=== PATIENT | female | born 1960 | race Two or more races ===

== ENCOUNTER 2024-05-22 16:02 | Emergency (ER) | payer MEDICARE, MEDICAID, SELFPAY ==
--- NOTE | 2024-05-22 16:57 | XR_ITS ---
Examination: PA chest lateral 2 views Technique: Upright PA lateral chest 2 views Exam date and time: May 22, 2024 1707 hrs. Comparison April 25, 2024 Indications: Onset chest pain today Findings: Normal heart size Lungs are clear. The osseous structures are intact Impression: No active disease
--- NOTE | 2024-05-22 16:57 | EKG_ITS ---
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
--- NOTE | 2024-05-22 16:57 | PD.EDRME ---
Rapid Medical Screening Exam RME Arrival date/time: 05/22/24 16:02 Chief Complaint: General Adult/Misc Complain Time Seen by Provider: 05/22/24 16:52 Vital signs reviewed by provider: Yes RME Narrative: 64-year-old female with reported Hx of L jugular blood clot on Eliquis presents with chest pain with radiation down her left arm.
[2024-05-22 17:07] VITALS: BP 158/89; PULSE 65; RESP 18; TEMP 36.9; O2SAT 99
[2024-05-22 17:44] LABS: Basophils % (Auto) 1 % (0-2.5); Eosinophils # (Auto) 0.2 Thou/mm3 (0.0-0.5); Eosinophils % (Auto) 4 % (0-10); Hematocrit 43.7 % (36.0-46.0); Hemoglobin 14.4 g/dL (12.0-16.0); Immature Granulocytes % (Auto) 0 % (0-0); Immature Granulocytes Auto 0.02 Thou/mm3 (0.00-0.00); Lymphocytes # (Auto) 1.4 Thou/mm3 (1.0-4.8); Lymphocytes % (Auto) 31 % (10-50); Mean Corpuscular Hemoglobin 31.3 pg (25.0-35.0); Mean Corpuscular Volume 95 fL (80-100); Monocytes # (Auto) 0.4 Thou/mm3 (0.0-0.8); Monocytes % (Auto) 8 % (0-12); Neutrophils # (Auto) 2.6 Thou/mm3 (1.8-7.7); Neutrophils % (Auto) 56 % (37-80); Nucleated Red Blood Cell % 0 /100 WBC (0); Platelet Count 276 Thou/mm3 (140-440); White Blood Count 4.6 Thou/mm3 (3.6-11.0)
[2024-05-22 18:01] LABS: INR 0.9 (0.9-1.3); Partial Thromboplastin Time 25.1 Seconds (22.0-36.0); Prothrombin Time 10.3 Seconds (9.0-12.2)
[2024-05-22 18:02] LABS: B-Type Natriuretic Peptide < 20 pg/mL (0-100)
[2024-05-22 18:03] LABS: Alanine Aminotransferase 32 U/L (10-49); Albumin, Serum 4.4 gm/dL (3.4-4.8); Albumin/Globulin Ratio 1.8 (1.2-2.2); Alkaline Phosphatase 84 U/L (46-116); Anion Gap 3 (7-16); Aspartate Amino Transferase 21 U/L (0-34); BUN/Creatinine Ratio 15 Ratio (12-20); Bilirubin,Total 0.4 mg/dL (0.3-1.2); Blood Urea Nitrogen 17 mg/dL (9-23); Calcium 9.8 mg/dL (8.3-10.6); Calcium (Corrected) 9.8 mg/dL (8.5-10.1); Chloride 106 mMol/L (98-107); Creatinine (Component) 1.1 mg/dL (0.6-1.3); Globulin 2.5 gm/dL (2.3-3.5); Glucose 108 mg/dL (74-106); Osmolality,Calculated 276 (275-295); Potassium 4.4 mMol/L (3.4-5.1); Sodium 137 mMol/L (136-145); Total Protein 6.9 gm/dL (5.7-8.2); Troponin I < 0.020 ng/mL (0.0-0.045); eGFR 56 See Note
[2024-05-22 18:05] VITALS: BP 163/90; PULSE 65; RESP 14; TEMP 37.3; O2SAT 97
[2024-05-22 18:09] VITALS: BMI 26.1
--- NOTE | 2024-05-22 18:11 | PC.NURSE ---
Patient came in to the ED for increased L arm pain. Patient has been Dx. with blood clot to L jugular in February 2024. Patient is taking Eliquis, and is to see a vascular surgeon in [place]. Patient rates pain 10/10. POC updated, patient verbalized understanding.
[2024-05-22 18:14] LABS: Collection Type, Urine Clean Catch
--- NOTE | 2024-05-22 18:23 | XR_ITS ---
Examination: Duplex scan of the upper extremity, unilateral left complete Date and time of exam: May 22, 2024 1858 hrs. Indications: Positive for thrombus in the left internal jugular vein, patient is anticoagulated 3 months Technique: Duplex scan of the extremity veins using B-mode/grayscale imaging and Doppler spectral analysis and color flow Attention is directed to internal echogenicity, compression and augmentation involving these veins, color flow assessment, spectral analysis Findings: Positive for thrombus in the left internal jugular vein Subclavian axillary cephalic brachial basilic radial and ulnar veins are open Impression: Positive for thrombus in the left internal jugular vein
--- NOTE | 2024-05-22 18:24 | EDNOTE_ITS ---
<Statement entered by Stephanie Ward MD - 05/23/24 22:06> As co-signing physician, I was present and available for consult prn. I concur with the plan and care as documented by the midlevel provider. ED General RME/HPI General Chief complaint: General Adult/Misc Complain Stated complaint: BLOOD CLOT IN JUGULAR VEIN WITH LEFT ARM PAIN Time Seen by Provider: 05/22/24 16:52 Arrival date/time: 05/22/24 16:02 RME / HPI RME / HPI narrative: 64-year-old female with reported Hx of L jugular blood clot on Eliquis presents with chest pain with radiation down her left arm. Pain is described as dull ache, getting worse for the last 3 days. Patient told me that his been taking her ibuprofen with no relief of pain. Patient denies any chest pain denies any shortness of breath denies any other complaints no medications taken prior travel. Related Data Previous Rx's ?Medication ?Instructions ?Recorded cephalexin 500 mg capsule 500 mg PO BID #10 caps 01/18/23 ibuprofen 800 mg tablet 800 mg PO TID PRN pain #30 tabs 09/12/23 tramadol 50 mg tablet 50 mg PO BID PRN pain #4 tabs 01/18/24 diphenhydramine HCl 50 mg capsule 50 mg PO BID #10 caps 02/15/24 dexamethasone 6 mg tablet 6 mg PO BID #14 tabs 04/10/24 tramadol 50 mg tablet 50 mg PO TID PRN pain #20 tabs 04/10/24 acetaminophen 300 mg-codeine 30 mg 1 tab PO TID PRN pain #20 tabs 05/22/24 tablet Allergies Allergy/AdvReac Type Severity Reaction Status Date / Time metronidazole Allergy Severe RASH Verified 05/22/24 16:03 povidone-iodine Allergy Severe RASH, Verified 05/22/24 16:03 SWELLING Review of Systems Review of Systems Narrative Review of Systems: Review of system reviewed and within normal limits except mentioned in HPI ED Exam Narrative Physical exam: VITAL SIGNS: Reviewed. GENERAL APPEARANCE: Alert and interactive, follows commands, no acute distress, HEAD AND FACE: Non-traumatic. ENT: PERRL, pink conjunctivitis, eyelid no trauma, Mucous membrane moist. NECK: Supple, nontender, no nuchal rigidity. CHEST: No tenderness, no crepitus, no paradoxical movement, no retractions. LUNGS: Clear, well ventilated, symmetric, no rales, no wheezing, no ronchi, no stridor, good breath sounds bilaterally. HEART: Regular rate, regular rhythm, no murmur, no gallops. ABDOMEN: Soft, positive bowel sounds, nondistended, no guarding, nontender, no rebound, no masses, RECTAL: Deferred. GENITAL: Deferred. NEUROLOGICAL: Gross motor function intact sensory function intact, Appropriate for age. MUSCULOSKELETAL: low back nontender, full range of motion. EXTREMITIES: Nontender, full range of motion. SKIN: Color pink, dry, no rash, no lacerations, no abrasions, no contusions. LYMPHATICS: Deferred. Course Quality Measures none Orders Category Date Time Status EKG (ED ONLY) *Do not use* NOW Care 05/22/24 16:57 Completed EKG (ED Only) Stat Exams 05/22/24 16:57 Draft US venous doppler UE LT Stat Exams 05/22/24 18:23 Completed XR chest 2V Stat Exams 05/22/24 16:57 Completed B-Type Natriuretic Peptide Stat Lab 05/22/24 17:25 Completed CBC Stat Lab 05/22/24 17:25 Completed Comprehensive Metabolic Panel Stat Lab 05/22/24 17:25 Completed Drug Screen,Urine Stat Lab 05/22/24 17:45 Completed Magnesium Stat Lab 05/22/24 17:25 Completed Partial Thromboplastin Time Stat Lab 05/22/24 17:25 Completed Prothrombin Time with INR Stat Lab 05/22/24 17:25 Completed Troponin I Stat Lab 05/22/24 17:25 Completed Urinalysis Stat Lab 05/22/24 17:45 Completed ACETAMINOPHEN w/COD 300-30 [Tylenol w/Cod #3] Med 05/22/24 18:23 Discontinued 1 tab PO X1 ONE Vital Signs Vital signs: Vital Signs Temperature 98.5 F 05/22/24 17:07 Pulse Rate 65 05/22/24 17:07 Respiratory Rate 18 05/22/24 17:07 Blood Pressure 158/89 H 05/22/24 17:07 Pulse Oximetry (%) 99 05/22/24 17:07 Oxygen Delivery Method Room Air 05/22/24 17:07 [facility] Patient data External records reviewed:: None Clinical information provided by:: none Social determinants that could affect healthcare access:: none Patient has the following chronic illnesses:: History of DVT left jugular vein How is presenting disease/condition affected by chronic disease/condition?: e xacerbated by Evaluation data The following diagnostics were reviewed and interpreted by me:: lab results, radiology exam(s) and EKG tracing(s) Lab and/or radiology exams considered but not ordered:: None Interpretation Summary: EKG as interpreted by me shows sinus bradycardia, ventricular rate of 57 bpm, no ST segment elevation depression noted. Patient's workup today all came back unremarkable. Ultrasound of the upper extremity is positive for thrombosed left internal jugular vein Medications Medications considered but not ordered:: None Medication administrations:: Medication Administration History Discontinued Medications Acetaminophen/Codeine Phosphate (Acetaminophen W/Cod 300-30 Tablet) 1 tab PO X1 ONE Stop: 05/22/24 18:24 Last Admin: 05/22/24 18:41 Dose: 1 tab Documented By: ER None Consultations Consultation(s) initiated? (list below): No Diagnosis Differential Diagnosis ED Complaint MDM: Arm pain, thrombosed left internal jugular vein, Most likely diagnosis given after review of the tests above:: Arm pain Admission Indicated Admission indicated?: not indicated Explain why admission is indicated or not indicated:: Stable Admission Request Was there a request for admission?: No Disposition Plan Disposition Plan: Discharge Discharge Attestation Discharge Attestation: The patient was given an opportunity to ask questions and understood the discharge instructions. Discharge instructions specifically effects, indications for sooner follow up or return to the emergency department, and the expected course of current diagnosis. Patient condition: Stable Medical Decision Making Differential Diagnosis Differential Diagnosis: Arm pain, thrombosed left internal jugular vein, Lab Data 05/22/24 17:25 05/22/24 17:25 Labs: Lab Results 05/22/24 05/22/24 Range/Units 17:25 17:45 WBC 4.6 (3.6-11.0) Thou/mm3 RBC 4.60 (4.00-5.20) Miln/mm3 Hgb 14.4 (12.0-16.0) g/dL Hct 43.7 (36.0-46.0) % MCV 95 (80-100) fL MCH 31.3 (25.0-35.0) pg MCHC 33.0 (31.0-37.0) g/dl RDW Std Deviation 47.0 H (36.4-46.3) fL Plt Count 276 D (140-440) Thou/mm3 Neut % (Auto) 56 (37-80) % Lymph % (Auto) 31 (10-50) % [place] % (Auto) 8 (0-12) % Eos % (Auto) 4 (0-10) % Baso % (Auto) 1 (0-2.5) % Neut # (Auto) 2.6 (1.8-7.7) Thou/mm3 Lymph # (Auto) 1.4 (1.0-4.8) Thou/mm3 [place] # (Auto) 0.4 (0.0-0.8) Thou/mm3 Eos # (Auto) 0.2 (0.0-0.5) Thou/mm3 Baso # (Auto) 0.0 (0.0-0.2) Thou/mm3 Immature Gran # (Auto) 0.02 H (0.00-0.00) Thou/mm3 Absolute Nucleated RBC 0.00 (0.00-0.00) Thou/mm3 Immature Gran % 0 (0-0) % Nucleated RBC % 0 (0) /100 WBC PT 10.3 (9.0-12.2) Seconds INR 0.9 (0.9-1.3) APTT 25.1 (22.0-36.0) Seconds Sodium 137 (136-145) mMol/L Potassium 4.4 (3.4-5.1) mMol/L Chloride 106 (98-107) mMol/L Carbon Dioxide 28.0 (20.0-31.0) mMol/L Anion Gap 3 L (7-16) BUN 17 (9-23) mg/dL Creatinine 1.1 (0.6-1.3) mg/dL Estim Creat Clear Calc Not Performed. eGFR 56 L (60 - ) See Note BUN/Creatinine Ratio 15 (12-20) Ratio Glucose 108 H (74-106) mg/dL Calculated Osmolality 276 (275-295) Calcium 9.8 (8.3-10.6) mg/dL Corrected Calcium 9.8 (8.5-10.1) mg/dL Magnesium 2.0 (1.6-2.6) mg/dL Total Bilirubin 0.4 (0.3-1.2) mg/dL AST 21 (0-34) U/L ALT 32 (10-49) U/L Alkaline Phosphatase 84 (46-116) U/L Troponin I < 0.020 (0.0-0.045) ng/mL B-Natriuretic Peptide < 20 (0-100) pg/mL Total Protein 6.9 (5.7-8.2) gm/dL Albumin 4.4 (3.4-4.8) gm/dL Globulin 2.5 (2.3-3.5) gm/dL Albumin/Globulin Ratio 1.8 (1.2-2.2) Ur Collection Type Clean Catch Urine Color Lt-Yellow (Lt Yel-Yel) Urine Clarity Turbid A (Clear/Hazy) Urine pH 6.0 (5.0-7.0) Ur Specific [place] 1.021 (1.001-1.035) Urine Protein Negative (Neg - Trace) Urine Glucose (UA) Negative (Negative) Urine Ketones Negative (Negative) Urine Blood 2+ A (Negative) Urine Nitrite Negative (Negative) Urine Bilirubin Negative (Negative) Urine Urobilinogen (Auto) Negative (0.0-1.0) mg/dL Ur Leukocyte Esterase Negative (Negative) Urine RBC 6 H (0-3) /hpf Urine WBC 3 (0-5) /hpf Ur Squamous Epith Cells 2 (0-5) /hpf Urine Bacteria None (None) Urine Opiates Screen Negative (Negative) Urine Fentanyl Screen Negative (Negative) Ur Barbiturates Screen Negative (Negative) U Amphetamin/Meth Scrn Negative (Negative) U Benzodiazepines Scrn Negative (Negative) U Cocaine Metab Screen Negative (Negative) U Marijuana (THC) Screen Negative (Negative) Discharge Plan Plan Patient Disposition: HOME (Self Care) Disposition Comment: Stable Prescriptions/Referrals Prescriptions/Med Rec: New acetaminophen-codeine 300-30 mg tablet 1 tab PO TID PRN (Reason: pain) Qty: 20 0RF No Action cephalexin 500 mg capsule 500 mg PO BID Qty: 10 0RF ibuprofen 800 mg tablet 800 mg PO TID PRN (Reason: pain) Qty: 30 0RF tramadol 50 mg tablet 50 mg PO BID PRN (Reason: pain) Qty: 4 0RF diphenhydramine HCl 50 mg capsule 50 mg PO BID Qty: 10 0RF dexamethasone 6 mg tablet 6 mg PO BID Qty: 14 0RF tramadol 50 mg tablet 50 mg PO TID PRN (Reason: pain) Qty: 20 0RF Referrals: Mansi Newton, APPLICATION SUPPORT CONSULTANT [Primary Care Provider] - In 1 week Problem List Clinical Impression: Arm pain, 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 You are stable for discharged . You are advised to: Follow-up with your PCP in 1 to 2 days Return to ED for worsening of symptoms Increase oral fluids Take medication as prescribed Continue taking your Eliquis Print Language: Ukrainian Stand Alone Forms: Sabrina Award Info., Patient Portal Info Letter PA/PIPE PULLER Supervising Physician ELAN/GABRIELA Supervising Physician: MD Sylvia
[2024-05-22 18:25] LABS: Bilirubin,Urine Negative (Negative); Blood,Urine 2+ (Negative); Clarity,Urine Turbid (Clear/Hazy); Color,Urine Lt-Yellow (Lt Yel-Yel); Glucose, Urine Negative (Negative); Ketones,Urine Negative (Negative); Leukocyte Esterase,Urine Negative (Negative); Nitrite,Urine Negative (Negative); Protein,Urine Negative (Neg - Trace); RBC,Urine 6 /hpf (0-3); Specific Gravity,Urine 1.021 (1.001-1.035); Squamous Epithelial Cell,Urine 2 /hpf (0-5); Urobilinogen,Urine Negative mg/dL (0.0-1.0); WBC,Urine 3 /hpf (0-5)
[2024-05-22 18:28] LABS: Amphetamine/Methamp Scrn,U Negative (Negative); Barbiturate Screen,Urine Negative (Negative); Benzodiazepines Screen,Urine Negative (Negative); Benzoylecgonine Screen, Ur Negative (Negative); Fentanyl Screen,Urine Negative (Negative); Opiate Screen,Urine Negative (Negative); THC Screen,Urine Negative (Negative)
[2024-05-22] MEDS: ACETAMINOPHEN w/COD 300-30 TABLET 1 TAB PO (18:41)
[2024-05-22 20:00] VITALS: BP 166/75; O2SAT 94
[2024-05-22 21:00] VITALS: BP 142/77; PULSE 55; RESP 16; TEMP 37.1; O2SAT 96
[2024-05-22 22:00] VITALS: BP 136/85; PULSE 57; O2SAT 94
[2024-05-22 23:00] VITALS: BP 106/71; PULSE 56; RESP 17; TEMP 36.7; O2SAT 94
[2024-05-23 00:11] VITALS: BP 145/75; PULSE 75; RESP 16; TEMP 37.1; O2SAT 99
== END 2024-05-23 00:12 | disposition home or self-care (01) ==
PROVIDERS: Physician Assistant; Emergency Provider Emergency Medicine; PCP Nurse Practitioner Family
DX: I82.C12 Acute embolism and thrombosis of left internal jugular vein (principal); R00.1 Bradycardia, unspecified; R07.9 Chest pain, unspecified
CPT/HCPCS: 36415; 71046; 80053; 80307; 81001; 83735; 83880; 84484; 85025; 85610; 85730; 93005; 93971; 99284; A9270

== ENCOUNTER 2024-05-24 14:54 | Emergency (ER) | payer MEDICARE, MEDICAID, SELFPAY ==
[2024-05-24 14:55] VITALS: BMI 26.1
[2024-05-24 15:18] VITALS: BP 139/69; PULSE 85; RESP 18; TEMP 36.8; O2SAT 96
--- NOTE | 2024-05-24 15:35 | PD.EDADULT ---
ED General RME/HPI General Chief complaint: General Adult/Misc Complain Stated complaint: LEFT NECK AND ARM PAIN, +HX OF DVT Time Seen by Provider: 05/24/24 15:21 Source: patient Arrival date/time: 05/24/24 14:54 64-year-old female presents to the emergency department with complaints of chronic neck and left arm pain for approximately 4 months. Patient does report she has a chronic DVT into her internal jugular and has had pain that radiates into her left forearm. States her pain has been approximately 4 months no changes in condition. She reports she was evaluated in the emergency department a couple days for similar symptoms. Has not taken any pain medication at home for her symptoms. She is pending a vascular surgeon referral by her PCP. Denies any chest pain, dyspnea no lethargy, no cough hemoptysis. Mode of arrival: ambulatory Related Data Previous Rx's ?Medication ?Instructions ?Recorded cephalexin 500 mg capsule 500 mg PO BID #10 caps 01/18/23 ibuprofen 800 mg tablet 800 mg PO TID PRN pain #30 tabs 09/12/23 tramadol 50 mg tablet 50 mg PO BID PRN pain #4 tabs 01/18/24 diphenhydramine HCl 50 mg capsule 50 mg PO BID #10 caps 02/15/24 dexamethasone 6 mg tablet 6 mg PO BID #14 tabs 04/10/24 tramadol 50 mg tablet 50 mg PO TID PRN pain #20 tabs 04/10/24 acetaminophen 300 mg-codeine 30 mg 1 tab PO TID PRN pain #20 tabs 05/22/24 tablet Allergies Allergy/AdvReac Type Severity Reaction Status Date / Time metronidazole Allergy Severe RASH Verified 05/24/24 14:57 povidone-iodine Allergy Severe RASH, Verified 05/24/24 14:57 SWELLING Review of Systems Review of Systems Systems Reviewed: All systems reviewed, normal except as documented Narrative Review of Systems: Gen: No fever, no chills, no weight loss EYES: No discharge, no visual changes, no pain HEENT: No ear pain, no congestion, no sore throat PULM: No shortness of breath, no cough, no congestion CV: No chest pain, no dyspnea on exertion, no palpitations GI: No nausea, no vomiting, no diarrhea, no pain, no constipation : No frequency, no urgency,? no dysuria Musc/skel: +chronic left arm pain, no back pain Skin: No rash? ED Exam Narrative Physical exam: VITAL SIGNS: Reviewed. GENERAL APPEARANCE: Alert and interactive, follows commands, no acute distress, HEAD AND FACE: Non-traumatic. ENT: PERRL, pink conjunctivitis, eyelid no trauma, Mucous membrane moist. NECK: Supple, nontender, no nuchal rigidity. CHEST: No tenderness, no crepitus, no paradoxical movement, no retractions. LUNGS: Clear, well ventilated, symmetric, no rales, no wheezing, no ronchi, no stridor, good breath sounds bilaterally. HEART: Regular rate, regular rhythm, no murmur, no gallops. ABDOMEN: Soft, positive bowel sounds, nondistended, no guarding, nontender, no rebound, no masses, RECTAL: Deferred. GENITAL: Deferred. NEUROLOGICAL: Gross motor function intact sensory function intact, Appropriate for age. MUSCULOSKELETAL: low back nontender, full range of motion. EXTREMITIES: Nontender, full range of motion. SKIN: Color pink, dry, no rash, no lacerations, no abrasions, no contusions. LYMPHATICS: Deferred. Course Course Course Narrative: 64-year-old female with history of chronic left arm pain from chronic DVT. Is here for pain control Patient is currently on Eliquis twice daily 5 mg for chronic DVT. Has not taken any pain medication for her left arm pain. 1 pain pill was given while in ED. Advised to follow-up with her PCP for further evaluation. Keep cardio/vascular appointments. Clear advised to return to the emergency department with any worsening symptoms or change in condition. Quality Measures none Orders Category Date Time Status HYDROcodone*/APAP 5/325 [[place] 5/325] Med 05/24/24 15:33 Discontinued 1 tab PO X1 ONE Vital Signs Vital signs: Vital Signs Temperature 98.3 F 05/24/24 15:18 Pulse Rate 85 05/24/24 15:18 Respiratory Rate 18 05/24/24 15:18 Blood Pressure 139/69 H 05/24/24 15:18 Pulse Oximetry (%) 96 05/24/24 15:18 Oxygen Delivery Method Room Air 05/24/24 15:18 [facility] Patient data External records reviewed:: [facility] previous records Clinical information provided by:: patient Social determinants that could affect healthcare access:: other (specify) (Housing, substance abuse,) Patient has the following chronic illnesses:: Chronic DVT, methamphetamine use, How is presenting disease/condition affected by chronic disease/condition?: exacerbated by Evaluation data The following diagnostics were reviewed and interpreted by me:: other (specify) Lab and/or radiology exams considered but not ordered:: Yes considered Interpretation Summary: Not applicable Medications Medications considered but not ordered:: Pain medication Medication administrations:: Medication Administration History Discontinued Medications Hydrocodone Bitart/Acetaminophen (Hydrocodone/Apap 5/325 Tablet) 1 tab PO X1 ONE Stop: 05/24/24 15:34 Last Admin: 05/24/24 15:48 Dose: 1 tab Documented By: All medications administered and effective Consultations Consultation(s) initiated? (list below): No Diagnosis Differential Diagnosis ED Complaint MDM: Chronic arm pain, Most likely diagnosis given after review of the tests above:: Chronic arm pain, chronic pain Admission Indicated Admission indicated?: not indicated Explain why admission is indicated or not indicated:: Not indicate Admission Request Was there a request for admission?: No Disposition Plan Disposition Plan: Discharge Discharge Attestation Discharge Attestation: The patient and all family members were given an opportunity to ask questions and understood the discharge instructions. Discharge instructions specifically effects, indications for sooner follow up or return to the emergency department, and the expected course of current diagnosis. Patient condition: Stable Medical Decision Making Differential Diagnosis Differential Diagnosis: Chronic arm pain, Discharge Plan Plan Patient Disposition: HOME (Self Care) Patient condition on transfer: Stable Prescriptions/Referrals Prescriptions/Med Rec: No Action cephalexin 500 mg capsule 500 mg PO BID Qty: 10 0RF ibuprofen 800 mg tablet 800 mg PO TID PRN (Reason: pain) Qty: 30 0RF tramadol 50 mg tablet 50 mg PO BID PRN (Reason: pain) Qty: 4 0RF acetaminophen-codeine 300-30 mg tablet 1 tab PO TID PRN (Reason: pain) Qty: 20 0RF diphenhydramine HCl 50 mg capsule 50 mg PO BID Qty: 10 0RF dexamethasone 6 mg tablet 6 mg PO BID Qty: 14 0RF tramadol 50 mg tablet 50 mg PO TID PRN (Reason: pain) Qty: 20 0RF Problem List Clinical Impression: 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 Continue to alternate between Tylenol ibuprofen for your pain. Follow-up with your primary doctor keep your appointment with your vascular surgeon. Return to the emergency department if you develop any shortness of breath chest pain or any worsening symptoms as discussed. Print Language: [place] Stand Alone Forms: Sabrina Award Info., Patient Portal Info Letter Attestation Attestation The patient was seen by the midlevel practitioner. I, the co-signing physician, was present during the entire ER visit. While I did not physically examine the patient, I was available for consultation as needed.
[2024-05-24] MEDS: HYDROcodone/APAP 5/325 TABLET 1 TAB PO (15:48)
== END 2024-05-24 16:39 | disposition home or self-care (01) ==
PROVIDERS: Emergency Provider Emergency Medicine; PCP Nurse Practitioner Family
DX: M79.632 Pain in left forearm (principal); G89.29 Other chronic pain; I82.C22 Chronic embolism and thrombosis of left internal jugular vein; Z79.01 Long term (current) use of anticoagulants
CPT/HCPCS: 99283; A9270

== ENCOUNTER 2024-07-07 14:46 | Emergency (ER) | payer MEDICARE, MEDICAID, SELFPAY ==
[2024-07-07 14:47] VITALS: BMI 26.1
--- NOTE | 2024-07-07 14:51 | EKG_ITS ---
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
[2024-07-07 15:10] VITALS: BP 144/84; PULSE 60; RESP 18; TEMP 36.6
--- NOTE | 2024-07-07 15:37 | XR_ITS ---
Examination: PA lateral chest 2 views TECHNIQUE: Upright PA lateral chest 2 views Exam date and time: July 07, 2024 0.49 hours Comparison May 22, 2024 INDICATIONS: Onset chest pain today. FINDINGS: Normal heart size No pneumonia or pulmonary edema The osseous structures are intact with mild thoracic dextroscoliosis IMPRESSION: No pneumonia or pulmonary edema
[2024-07-07] MEDS: HYDROcodone/APAP 5/325 TABLET 1 TAB PO (15:46)
--- NOTE | 2024-07-07 15:48 | PD.EDNECK ---
ED Neck Injury Pain RME/HPI General Chief Complaint: Neck Pain/Injury Stated Complaint: LEFT NECK PAIN AND LEFT ARM/HAND WEEKNESS Time Seen by Provider: 07/07/24 15:31 Arrival date/time: 07/07/24 14:46 RME / HPI RME / HPI Narrative: 64 yo female presents with left sided neck pain. Pain has been ongoing for months. 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 Complains of left arm pain also. No chest pain or shortness of breath. No vomiting. No abdominal pain. No fevers. No headache. No syncope or presyncope. Related Data Previous Rx's ?Medication ?Instructions ?Recorded cephalexin 500 mg capsule 500 mg PO BID #10 caps 01/18/23 ibuprofen 800 mg tablet 800 mg PO TID PRN pain #30 tabs 09/12/23 tramadol 50 mg tablet 50 mg PO BID PRN pain #4 tabs 01/18/24 diphenhydramine HCl 50 mg capsule 50 mg PO BID #10 caps 02/15/24 dexamethasone 6 mg tablet 6 mg PO BID #14 tabs 04/10/24 tramadol 50 mg tablet 50 mg PO TID PRN pain #20 tabs 04/10/24 acetaminophen 300 mg-codeine 30 mg 1 tab PO TID PRN pain #20 tabs 05/22/24 tablet Allergies Allergy/AdvReac Type Severity Reaction Status Date / Time metronidazole Allergy Severe RASH Verified 07/07/24 14:50 povidone-iodine Allergy Severe RASH, Verified 07/07/24 14:50 SWELLING Review of Systems Review of Systems Narrative Review of Systems: Review of systems negative except as outlined in the HPI. ED Exam Narrative Physical exam: Constitutional: no acute distress, age appropriate, non-toxic Eyes: PERRL, conjunctivae w/o pallor, EOMI HENT: normocephalic, atraumatic. Oral mucosa moist Respiratory Effort: no stridor, effort normal, no retractions Breath sounds: Clear bilaterally; No rales, No rhonchi, No wheezing Cardiovascular: regular rhythm, S1 and S2 normal, no murmur. Radial pulses 2+ bilaterally. Cap refill less than 2 seconds. Abdominal: soft; non-distended, non-tender Musculoskeletal: no deformities, no swelling, no LE edema. Skin: warm, dry; No rash Neurology: alert, oriented X 4. Normal gait. Cranial nerves II through XII intact. Equal relief master bilaterally. Sensation intact bilateral upper extremities. 5 out of 5 strength bilateral upper extremities, 5 out of 5 muscle strength bilateral upper extremities. Psychology: cooperative, normal mood Course Orders Category Date Time Status EKG (ED ONLY) *Do not use* NOW Care 07/07/24 14:51 Completed EKG (ED Only) Stat Exams 07/07/24 14:51 Ordered XR chest 2V Stat Exams 07/07/24 15:37 Ordered CBC Stat Lab 07/07/24 15:37 Ordered CMP [Comprehensive Metabolic Panel] Stat Lab 07/07/24 15:37 Ordered Troponin I Stat Lab 07/07/24 15:37 Ordered HYDROcodone*/APAP 5/325 [Bob White 5/325] Med 07/07/24 15:37 Discontinued 1 tab PO X1 ONE Vital Signs Vital signs: Vital Signs Temperature 97.9 F 07/07/24 15:10 Pulse Rate 60 07/07/24 15:10 Respiratory Rate 18 07/07/24 15:10 Blood Pressure 144/84 H 07/07/24 15:10 Oxygen Delivery Method Room Air 07/07/24 15:10 Neck Pain MDM Narrative MDM Narrative:: Patient presents with chronic neck pain. She has history of thrombosis of the left jugular vein. There is no unilateral arm swelling to suggest upper extremity DVT. No chest pain or shortness of breath to suggest pulmonary embolism. No tachycardia, normal SpO2 on room air. Highly doubt pulmonary embolism. Likely exacerbation of chronic pain. Patient data External records reviewed:: [facility] previous records Clinical information provided by:: patient Social determinants that could affect healthcare access:: none Patient has the following chronic illnesses:: Chronic pain How is presenting disease/condition affected by chronic disease/condition?: exacerbated by Evaluation data The following diagnostics were reviewed and interpreted by me:: lab results and radiology exam(s) Lab and/or radiology exams considered but not ordered:: Considered CT angio of the chest, but highly doubt PE. See MDM section. Medications / Prescriptions Medications or Prescriptions considered but not ordered:: N/A Medication administrations:: Medication Administration History Discontinued Medications Hydrocodone Bitart/Acetaminophen (Hydrocodone/Apap 5/325 Tablet) 1 tab PO X1 ONE Stop: 07/07/24 15:38 Last Admin: 07/07/24 15:46 Dose: 1 tab Documented By: See above Consultations Consultation(s) initiated? (list below): No Diagnosis Neck Differential Diagnosis: other (ACS, upper extremity DVT, chronic pain, PE) Most likely diagnosis given after review of the tests above:: Chronic pain Admission Indicated Admission indicated?: not indicated Admission Request Was there a request for admission?: No Discharge Plan Prescriptions/Referrals Prescriptions/Med Rec: No Action cephalexin 500 mg capsule 500 mg PO BID Qty: 10 0RF ibuprofen 800 mg tablet 800 mg PO TID PRN (Reason: pain) Qty: 30 0RF tramadol 50 mg tablet 50 mg PO BID PRN (Reason: pain) Qty: 4 0RF acetaminophen-codeine 300-30 mg tablet 1 tab PO TID PRN (Reason: pain) Qty: 20 0RF diphenhydramine HCl 50 mg capsule 50 mg PO BID Qty: 10 0RF dexamethasone 6 mg tablet 6 mg PO BID Qty: 14 0RF tramadol 50 mg tablet 50 mg PO TID PRN (Reason: pain) Qty: 20 0RF Patient/Caregiver Discharge Instructions Print Language: Cymro
--- NOTE | 2024-07-07 16:25 | PD.EDRME ---
Rapid Medical Screening Exam [facility] Arrival date/time: 07/07/24 14:46 Chief Complaint: Neck Pain/Injury Time Seen by Provider: 07/07/24 15:31 Vital signs: Vital Signs Temperature 97.9 F 07/07/24 15:10 Pulse Rate 60 07/07/24 15:10 Respiratory Rate 18 07/07/24 15:10 Blood Pressure 144/84 H 07/07/24 15:10 Oxygen Delivery Method Room Air 07/07/24 15:10 [facility] Narrative: 64 yo female presents with left sided neck pain. Pain has been ongoing for months. 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 Complains of left arm pain also. No chest pain or shortness of breath. No vomiting. No abdominal pain. No fevers. No headache. No syncope or presyncope.
[2024-07-07 16:27] LABS: Basophils % (Auto) 1 % (0-2.5); Eosinophils # (Auto) 0.2 Thou/mm3 (0.0-0.5); Eosinophils % (Auto) 3 % (0-10); Hematocrit 45.5 % (36.0-46.0); Hemoglobin 14.8 g/dL (12.0-16.0); Immature Granulocytes % (Auto) 0 % (0-0); Immature Granulocytes Auto 0.01 Thou/mm3 (0.00-0.00); Lymphocytes # (Auto) 1.4 Thou/mm3 (1.0-4.8); Lymphocytes % (Auto) 25 % (10-50); Mean Corpuscular HGB Conc 32.5 g/dl (31.0-37.0); Mean Corpuscular Hemoglobin 30.7 pg (25.0-35.0); Mean Corpuscular Volume 94 fL (80-100); Monocytes # (Auto) 0.3 Thou/mm3 (0.0-0.8); Monocytes % (Auto) 5 % (0-12); Neutrophils # (Auto) 3.6 Thou/mm3 (1.8-7.7); Neutrophils % (Auto) 66 % (37-80); Nucleated Red Blood Cell % 0 /100 WBC (0); Platelet Count 297 Thou/mm3 (140-440); RDW Standard Deviation 43.2 fL (36.4-46.3); Red Blood Count 4.82 Miln/mm3 (4.00-5.20); White Blood Count 5.5 Thou/mm3 (3.6-11.0)
[2024-07-07 16:49] LABS: Alanine Aminotransferase 10 U/L (10-49); Albumin, Serum 4.4 gm/dL (3.4-4.8); Albumin/Globulin Ratio 1.6 (1.2-2.2); Alkaline Phosphatase 74 U/L (46-116); Anion Gap 4 (7-16); Aspartate Amino Transferase 14 U/L (0-34); BUN/Creatinine Ratio 11 Ratio (12-20); Bilirubin,Total 0.5 mg/dL (0.3-1.2); Blood Urea Nitrogen 13 mg/dL (9-23); Calcium 9.4 mg/dL (8.3-10.6); Calcium (Corrected) 9.4 mg/dL (8.5-10.1); Carbon Dioxide 30.8 mMol/L (20.0-31.0); Chloride 105 mMol/L (98-107); Creatinine (Component) 1.2 mg/dL (0.6-1.3); Estimated Creatinine Clearance 44.6 mL/min (>60); Globulin 2.7 gm/dL (2.3-3.5); Glucose 112 mg/dL (74-106); Osmolality,Calculated 280 (275-295); Potassium 4.2 mMol/L (3.4-5.1); Sodium 140 mMol/L (136-145); Total Protein 7.1 gm/dL (5.7-8.2); Troponin I < 0.020 ng/mL (0.0-0.045); eGFR 50 See Note
--- NOTE | 2024-07-07 17:48 | EDNOTE_ITS ---
<Statement entered by Stephanie Ward MD - 07/09/24 15:28> As co-signing physician, I was present and available for consult prn. I concur with the plan and care as documented by the midlevel provider. ED General RME/HPI General Chief complaint: Neck Pain/Injury Stated complaint: LEFT NECK PAIN AND LEFT ARM/HAND WEEKNESS Time Seen by Provider: 07/07/24 15:31 Arrival date/time: 07/07/24 14:46 CC: Left arm pain HPI ongoing for the past months. The patient also states that she has a chronic thrombus in her jugular vein that she has been on Eliquis for for the past 4 months. She has a follow-up with her PCP in another week and a half. Patient denies chest pain shortness of breath or difficulty breathing. RME / HPI RME / HPI narrative: 64 yo female presents with left sided neck pain. Pain has been ongoing for months. 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 Complains of left arm pain also. No chest pain or shortness of breath. No vomiting. No abdominal pain. No fevers. No headache. No syncope or presyncope. Related Data Previous Rx's ?Medication ?Instructions ?Recorded cephalexin 500 mg capsule 500 mg PO BID #10 caps 01/18/23 ibuprofen 800 mg tablet 800 mg PO TID PRN pain #30 tabs 09/12/23 tramadol 50 mg tablet 50 mg PO BID PRN pain #4 tabs 01/18/24 diphenhydramine HCl 50 mg capsule 50 mg PO BID #10 caps 02/15/24 dexamethasone 6 mg tablet 6 mg PO BID #14 tabs 04/10/24 tramadol 50 mg tablet 50 mg PO TID PRN pain #20 tabs 04/10/24 acetaminophen 300 mg-codeine 30 mg 1 tab PO TID PRN pain #20 tabs 05/22/24 tablet Allergies Allergy/AdvReac Type Severity Reaction Status Date / Time metronidazole Allergy Severe RASH Verified 07/07/24 14:50 povidone-iodine Allergy Severe RASH, Verified 07/07/24 14:50 SWELLING Review of Systems Review of Systems Narrative Review of Systems: GEN: No fever, no chills, no weight loss EYES: No discharge, no visual changes, no pain HEENT: No ear pain, no congestion, no sore throat PULM: No shortness of breath, no cough, no congestion CV: No chest pain, no dyspnea on exertion, no palpitations GI: No nausea, no vomiting, no diarrhea, no pain, no constipation : No frequency, no urgency, no dysuria MUSC/SKEL: No joint pain, no back pain SKIN: No rash PSYCH: No hallucinations, no depression HEME/LYMPH: No easy bleeding or bruising tendencies NEURO: No weakness, no headache Past Medical History Past Medical History NEUROLOGIC: Negative Neurological Disorders CARDIAC: Positive Deep Vein Thrombosis; Negative Cardiac Disorders, Congestive Heart Failure or Hypertension RESPIRATORY: Positive Chronic Obstructive Pulmonary Disease (COPD) and Asthma GASTROINTESTINAL: Positive Gastrointestinal Disorders and Gall Bladder Disease GENITOURINARY: Negative Renal Disease MUSCULOSKELETAL: Positive Musculoskeletal Disorders and Arthritis ENDOCRINE: Negative Diabetes Mellitus Type 1 or Diabetes Mellitus Type 2 HEMATOLOGIC: Negative Sickle Cell Disease OTHER HISTORY: Negative Cancer Surgical History SURGICAL: Negative Cardiac Surgery Social History SMOKING STATUS: Current every day smoker 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) ED Exam Narrative Physical exam: [General: Not in any acute distress Head normocephalic HEENT: Within acceptable limits Neck is supple nontender no significant JVD Chest equal chest rise nontender to palpation Respiratory: Clear to auscultation no wheezes crackles or rubs CV: Rate rhythm is regular no murmurs rubs or clicks Abdomen is distended secondary to body habitus soft nontender no masses positive bowel sounds all 4 quadrants Back: No CVA tenderness no spinous process tenderness from cervical spine thoracic and lumbar spine Skin: Intact no petechiae rash induration ulceration or crepitus Extremities: Moving all extremity against resistance cap refill less than 2 seconds neurosensory intact Neuro: Awake alert oriented x3 Glascow coma 15 no focal deficits] Course Quality Measures none Orders Category Date Time Status EKG (ED ONLY) *Do not use* NOW Care 07/07/24 14:51 Completed EKG (ED Only) Stat Exams 07/07/24 14:51 Ordered XR chest 2V Stat Exams 07/07/24 15:37 Completed CBC Stat Lab 07/07/24 15:56 Completed CMP [Comprehensive Metabolic Panel] Stat Lab 07/07/24 15:56 Completed Troponin I Stat Lab 07/07/24 15:56 Completed HYDROcodone*/APAP 5/325 [[place] 5/325] Med 07/07/24 15:37 Discontinued 1 tab PO X1 ONE Vital Signs Vital signs: Vital Signs Temperature 97.9 F 07/07/24 15:10 Pulse Rate 60 07/07/24 15:10 Respiratory Rate 18 07/07/24 15:10 Blood Pressure 144/84 H 07/07/24 15:10 Oxygen Delivery Method Room Air 07/07/24 15:10 [facility] Patient data External records reviewed:: [facility] previous records Clinical information provided by:: patient Social determinants that could affect healthcare access:: none Patient has the following chronic illnesses:: Eliquis for jugular DVT How is presenting disease/condition affected by chronic disease/condition?: u neffected by Evaluation data The following diagnostics were reviewed and interpreted by me:: lab results, radiology exam(s) and EKG tracing(s) Lab and/or radiology exams considered but not ordered:: EKG performed at 1513 shows a ventricular rate of 5 2 OR interval 164 QRS of 8 0 QTc of 455 this is sinus bradycardia, when compared to old EKGs she has been persistently bradycardic for the last 2 years. Troponin is negative CBC shows no acute leukocytosis anemia thrombocytopenia CMP shows no acute electrolyte imbalances renal impairment transaminitis or T. bili elevation. Interpretation Summary: Left arm pain Medications Medications considered but not ordered:: None Medication administrations:: Medication Administration History Discontinued Medications Hydrocodone Bitart/Acetaminophen (Hydrocodone/Apap 5/325 Tablet) 1 tab PO X1 ONE Stop: 07/07/24 15:38 Last Admin: 07/07/24 15:46 Dose: 1 tab Documented By: None Consultations Consultation(s) initiated? (list below): No Diagnosis Differential Diagnosis ED Complaint MDM: ACS DC pneumonia Most likely diagnosis given after review of the tests above:: Left arm pain Admission Indicated Admission indicated?: not indicated Explain why admission is indicated or not indicated:: Stable for discharge Admission Request Was there a request for admission?: No Disposition Plan Disposition Plan: Discharge Discharge Attestation Discharge Attestation: The patient and all family members were given an opportunity to ask questions and understood the discharge instructions. Discharge instructions specifically effects, indications for sooner follow up or return to the emergency department, and the expected course of current diagnosis. Patient condition: Stable Medical Decision Making Differential Diagnosis Differential Diagnosis: ACS DC pneumonia Lab Data 07/07/24 15:56 01/14/25 15:56 Labs: Lab Results 07/07/24 Range/Units 15:56 WBC 5.5 (3.6-11.0) Thou/mm3 RBC 4.82 (4.00-5.20) Miln/mm3 Hgb 14.8 (12.0-16.0) g/dL Hct 45.5 (36.0-46.0) % MCV 94 (80-100) fL MCH 30.7 (25.0-35.0) pg MCHC 32.5 (31.0-37.0) g/dl RDW Std Deviation 43.2 (36.4-46.3) fL Plt Count 297 (140-440) Thou/mm3 Neut % (Auto) 66 (37-80) % Lymph % (Auto) 25 (10-50) % Stanton % (Auto) 5 (0-12) % Eos % (Auto) 3 (0-10) % Baso % (Auto) 1 (0-2.5) % Neut # (Auto) 3.6 (1.8-7.7) Thou/mm3 Lymph # (Auto) 1.4 (1.0-4.8) Thou/mm3 Stanton # (Auto) 0.3 (0.0-0.8) Thou/mm3 Eos # (Auto) 0.2 (0.0-0.5) Thou/mm3 Baso # (Auto) 0.0 (0.0-0.2) Thou/mm3 Immature Gran # (Auto) 0.01 H (0.00-0.00) Thou/mm3 Absolute Nucleated RBC 0.00 (0.00-0.00) Thou/mm3 Immature Gran % 0 (0-0) % Nucleated RBC % 0 (0) /100 WBC Sodium 140 (136-145) mMol/L Potassium 4.2 (3.4-5.1) mMol/L Chloride 105 (98-107) mMol/L Carbon Dioxide 30.8 (20.0-31.0) mMol/L Anion Gap 4 L (7-16) BUN 13 (9-23) mg/dL Creatinine 1.2 (0.6-1.3) mg/dL Estim Creat Clear Calc 44.6 L (>60) mL/min eGFR 50 L (60 - ) See Note BUN/Creatinine Ratio 11 L (12-20) Ratio Glucose 112 H (74-106) mg/dL Calculated Osmolality 280 (275-295) Calcium 9.4 (8.3-10.6) mg/dL Corrected Calcium 9.4 (8.5-10.1) mg/dL Total Bilirubin 0.5 (0.3-1.2) mg/dL AST 14 (0-34) U/L ALT 10 (10-49) U/L Alkaline Phosphatase 74 (46-116) U/L Troponin I < 0.020 (0.0-0.045) ng/mL Total Protein 7.1 (5.7-8.2) gm/dL Albumin 4.4 (3.4-4.8) gm/dL Globulin 2.7 (2.3-3.5) gm/dL Albumin/Globulin Ratio 1.6 (1.2-2.2) Discharge Plan Plan Patient Disposition: HOME (Self Care) Patient condition on transfer: Stable Prescriptions/Referrals Prescriptions/Med Rec: No Action cephalexin 500 mg capsule 500 mg PO BID Qty: 10 0RF ibuprofen 800 mg tablet 800 mg PO TID PRN (Reason: pain) Qty: 30 0RF tramadol 50 mg tablet 50 mg PO BID PRN (Reason: pain) Qty: 4 0RF acetaminophen-codeine 300-30 mg tablet 1 tab PO TID PRN (Reason: pain) Qty: 20 0RF diphenhydramine HCl 50 mg capsule 50 mg PO BID Qty: 10 0RF dexamethasone 6 mg tablet 6 mg PO BID Qty: 14 0RF tramadol 50 mg tablet 50 mg PO TID PRN (Reason: pain) Qty: 20 0RF Problem List Clinical Impression: Arm pain Patient/Caregiver Discharge Instructions Education Materials: Back Exercises: Arm Reach Print Language: Croatian Stand Alone Forms: Sabrina Award Info., Patient Portal Info Letter, Work/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
[2024-07-07 17:53] VITALS: BP 136/83; PULSE 55; RESP 19; TEMP 36.6; O2SAT 98
== END 2024-07-07 17:46 | disposition home or self-care (01) ==
LOC: SERX 18:24
PROVIDERS: Physician Assistant; Emergency Provider Emergency Medicine
DX: M79.602 Pain in left arm (principal); M54.2 Cervicalgia; Z86.718 Personal history of other venous thrombosis and embolism
CPT/HCPCS: 36415; 71046; 80053; 84484; 85025; 93005; 99283; A9270

== ENCOUNTER 2024-07-09 13:05 | Emergency (ER) | payer MEDICARE, MEDICAID, SELFPAY ==
--- NOTE | 2024-07-09 13:09 | EKG_ITS ---
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1960 Requested By: ED Temporary Provider Order Number: [id number] Reading MD: ED Temporary Provider Measurements Intervals [place] Rate: 73 P: 63 NH: 153 QRS: 107 QRSD: 76 T: 12 QT: 369 QTc: 408 Interpretive Statements SINUS RHYTHM MARKED RIGHT AXIS DEVIATION [QRS AXIS > 100] LOW QRS VOLTAGE IN PRECORDIAL LEADS [QRS DEFLECTION < 1.0 mV IN CHEST LEADS] POSSIBLE RIGHT VENTRICULAR CONDUCTION DELAY [RSR (QR) IN V1/V2] NONSPECIFIC T-WAVE ABNORMALITY Compared to ECG 07/07/2024 15:13:26 Right-axis deviation now present Low QRS voltage now present T-wave abnormality now present Sinus bradycardia no longer present /store/S0/[id number]/ecg/[id number].pdf
[2024-07-09 13:21] VITALS: BP 146/74; PULSE 88; RESP 16; TEMP 37; O2SAT 96; BMI 23.9
--- NOTE | 2024-07-09 13:33 | XR_ITS ---
Examination: PA lateral chest 2 views TECHNIQUE: Upright PA lateral chest 2 views Exam date and time: July 09, 2024 1358 hours Comparison July 07, 2024 INDICATIONS: Onset chest pain today. FINDINGS: Normal heart size Lungs are clear. The osseous structures are intact IMPRESSION: No active disease
--- NOTE | 2024-07-09 13:34 | PD.EDRME ---
Rapid Medical Screening Exam RME Arrival date/time: 07/09/24 13:05 64-year-old female presents to the emergency department with complaints of chest pain. 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 I have greeted and performed a focused initial assessment of this patient. Initial appropriate labs ordered at this time. A comprehensive ED assessment and evaluation of the patient and analysis of all test and completion of medical decision making process will be conducted by additional ED provider. Chief Complaint: General Adult/Misc Complain Time Seen by Provider: 07/09/24 13:32 Vital signs: Vital Signs Temperature 98.6 F 07/09/24 13:21 Pulse Rate 88 07/09/24 13:21 Respiratory Rate 16 07/09/24 13:21 Blood Pressure 146/74 H 07/09/24 13:21 Pulse Oximetry (%) 96 07/09/24 13:21 Oxygen Delivery Method Room Air 07/09/24 13:21
[2024-07-09 14:32] LABS: Basophils % (Auto) 1 % (0-2.5); Eosinophils # (Auto) 0.2 Thou/mm3 (0.0-0.5); Eosinophils % (Auto) 3 % (0-10); Hematocrit 44.3 % (36.0-46.0); Hemoglobin 14.7 g/dL (12.0-16.0); Immature Granulocytes % (Auto) 0 % (0-0); Immature Granulocytes Auto 0.01 Thou/mm3 (0.00-0.00); Lymphocytes # (Auto) 1.5 Thou/mm3 (1.0-4.8); Lymphocytes % (Auto) 34 % (10-50); Mean Corpuscular HGB Conc 33.2 g/dl (31.0-37.0); Mean Corpuscular Hemoglobin 30.9 pg (25.0-35.0); Mean Corpuscular Volume 93 fL (80-100); Monocytes # (Auto) 0.3 Thou/mm3 (0.0-0.8); Monocytes % (Auto) 7 % (0-12); Neutrophils # (Auto) 2.4 Thou/mm3 (1.8-7.7); Neutrophils % (Auto) 55 % (37-80); Nucleated Red Blood Cell % 0 /100 WBC (0); Platelet Count 271 Thou/mm3 (140-440); RDW Standard Deviation 42.8 fL (36.4-46.3); Red Blood Count 4.76 Miln/mm3 (4.00-5.20); White Blood Count 4.4 Thou/mm3 (3.6-11.0)
[2024-07-09 14:54] LABS: Alanine Aminotransferase 9 U/L (10-49); Albumin, Serum 4.2 gm/dL (3.4-4.8); Albumin/Globulin Ratio 1.5 (1.2-2.2); Alkaline Phosphatase 70 U/L (46-116); Anion Gap 5 (7-16); Aspartate Amino Transferase 16 U/L (0-34); BUN/Creatinine Ratio 13 Ratio (12-20); Bilirubin,Total 0.3 mg/dL (0.3-1.2); Blood Urea Nitrogen 17 mg/dL (9-23); Calcium 9.7 mg/dL (8.3-10.6); Calcium (Corrected) 9.7 mg/dL (8.5-10.1); Carbon Dioxide 30.3 mMol/L (20.0-31.0); Chloride 105 mMol/L (98-107); Creatinine (Component) 1.3 mg/dL (0.6-1.3); Estimated Creatinine Clearance 40.4 mL/min (>60); Globulin 2.8 gm/dL (2.3-3.5); Glucose 96 mg/dL (74-106); Osmolality,Calculated 280 (275-295); Sodium 140 mMol/L (136-145); Troponin I < 0.020 ng/mL (0.0-0.045); eGFR 46 See Note
[2024-07-09] MEDS: ACETAMINOPHEN 500 MG TABLET 1000 MG PO (14:59)
[2024-07-09 15:18] LABS: Amphetamine/Methamp Scrn,U Negative (Negative); Barbiturate Screen,Urine Negative (Negative); Benzodiazepines Screen,Urine Negative (Negative); Benzoylecgonine Screen, Ur Negative (Negative); Fentanyl Screen,Urine Negative (Negative); Opiate Screen,Urine Negative (Negative); THC Screen,Urine Negative (Negative)
--- NOTE | 2024-07-09 16:46 | EDNOTE_ITS ---
<Statement entered by Stephanie Ward MD - 07/11/24 09:14> As co-signing physician, I was present and available for consult prn. I concur with the plan and care as documented by the midlevel provider. ED General RME/HPI General Chief complaint: General Adult/Misc Complain Stated complaint: CXP SINCE , LEFT ARM SWELLING, CHRONIC DVT NECK Time Seen by Provider: 07/09/24 13:32 Arrival date/time: 07/09/24 13:05 RME / HPI RME / HPI narrative: 64-year-old female patient with significant history of left upper extremity DVT, came in for evaluation regarding left-sided chest pain. Onset of symptoms early this morning, sudden onset of left-sided chest pain, described as dull ache, severity mild, radiated to the left upper extremity. Patient denies any shortness of breath denies any cough denies any other complaints. Currently patient is taking blood thinner for DVT. No medication was taken prior to arrival. Related Data Previous Rx's ?Medication ?Instructions ?Recorded cephalexin 500 mg capsule 500 mg PO BID #10 caps 01/18/23 ibuprofen 800 mg tablet 800 mg PO TID PRN pain #30 tabs 09/12/23 tramadol 50 mg tablet 50 mg PO BID PRN pain #4 tabs 01/18/24 diphenhydramine HCl 50 mg capsule 50 mg PO BID #10 caps 02/15/24 dexamethasone 6 mg tablet 6 mg PO BID #14 tabs 04/10/24 tramadol 50 mg tablet 50 mg PO TID PRN pain #20 tabs 04/10/24 acetaminophen 300 mg-codeine 30 mg 1 tab PO TID PRN pain #20 tabs 05/22/24 tablet meloxicam 15 mg tablet 15 mg PO QDAY #20 tabs 07/09/24 Allergies Allergy/AdvReac Type Severity Reaction Status Date / Time metronidazole Allergy Severe RASH Verified 07/09/24 13:08 povidone-iodine Allergy Severe RASH, Verified 07/09/24 13:08 SWELLING Review of Systems Review of Systems Narrative Review of Systems: Review of system reviewed and within normal limits except mentioned in HPI ED Exam Narrative Physical exam: VITAL SIGNS: Reviewed. GENERAL APPEARANCE: Alert and interactive, follows commands, no acute distress, HEAD AND FACE: Non-traumatic. ENT: PERRL, pink conjunctivitis, eyelid no trauma, Mucous membrane moist. NECK: Supple, nontender, no nuchal rigidity. CHEST: No tenderness, no crepitus, no paradoxical movement, no retractions. LUNGS: Clear, well ventilated, symmetric, no rales, no wheezing, no ronchi, no stridor, good breath sounds bilaterally. HEART: Regular rate, regular rhythm, no murmur, no gallops. ABDOMEN: Soft, positive bowel sounds, nondistended, no guarding, nontender, no rebound, no masses, RECTAL: Deferred. GENITAL: Deferred. NEUROLOGICAL: Gross motor function intact sensory function intact, Appropriate for age. MUSCULOSKELETAL: low back nontender, full range of motion. EXTREMITIES: Nontender, full range of motion. SKIN: Color pink, dry, no rash, no lacerations, no abrasions, no contusions. LYMPHATICS: Deferred. Course Quality Measures none Orders Category Date Time Status EKG (ED ONLY) *Do not use* NOW Care 07/09/24 13:09 Completed EKG (ED Only) Stat Exams 07/09/24 13:09 Draft XR chest 2V Stat Exams 07/09/24 13:33 Completed CBC Stat Lab 07/09/24 14:18 Completed CMP [Comprehensive Metabolic Panel] Stat Lab 07/09/24 14:18 Completed Drug Screen,Urine Stat Lab 07/09/24 14:13 Completed Troponin I Stat Lab 07/09/24 14:18 Completed Acetaminophen Tab [Tylenol ES Tab] Med 07/09/24 13:33 Discontinued 1,000 mg PO X1 ONE Ketorolac Inj [Toradol Inj] Med 07/09/24 16:45 Once 30 mg IM X1 ONE Vital Signs Vital signs: Vital Signs Temperature 98.6 F 07/09/24 13:21 Pulse Rate 88 07/09/24 13:21 Respiratory Rate 16 07/09/24 13:21 Blood Pressure 146/74 H 07/09/24 13:21 Pulse Oximetry (%) 96 07/09/24 13:21 Oxygen Delivery Method Room Air 07/09/24 13:21 [facility] Patient data External records reviewed:: None Clinical information provided by:: patient Social determinants that could affect healthcare access:: none Patient has the following chronic illnesses:: History of DVT left upper extremity How is presenting disease/condition affected by chronic disease/condition?: e xacerbated by Evaluation data The following diagnostics were reviewed and interpreted by me:: lab results, radiology exam(s) and EKG tracing(s) Lab and/or radiology exams considered but not ordered:: None Interpretation Summary: I personally reviewed and interpreted the x-ray of this patient. There is no acute abnormalities found, no infiltrates no pneumothorax no hemothorax normal chest x-ray. Review of other structures was without significant abnormal findings also. I additionally reviewed the radiologist report and agree with the interpretation. Laboratory couple came back unremarkable. EKG as interpreted by me showed normal sinus rhythm, ventricular rate of 73 bpm, no ST segment elevation depression noted. Medications Medications considered but not ordered:: None Medication administrations:: Medication Administration History Discontinued Medications Acetaminophen (Acetaminophen 500 Mg Tablet) 1,000 mg PO X1 ONE Stop: 07/09/24 13:34 Last Admin: 07/09/24 14:59 Dose: 1,000 mg Documented By: [facility] Tylenol and Toradol Consultations Consultation(s) initiated? (list below): No Diagnosis Differential Diagnosis ED Complaint MDM: Chest pain, left upper extremity pain, ACS Most likely diagnosis given after review of the tests above:: Chest pain Admission Indicated Admission indicated?: not indicated Explain why admission is indicated or not indicated:: Stable for discharge home Admission Request Was there a request for admission?: No Disposition Plan Disposition Plan: Discharge Discharge Attestation Discharge Attestation: The patient was given an opportunity to ask questions and understood the discharge instructions. Discharge instructions specifically effects, indications for sooner follow up or return to the emergency department, and the expected course of current diagnosis. Patient condition: Stable Medical Decision Making MDM Narrative MDM Narrative: 64-year-old female patient with significant history of left upper extremity DVT, came in for evaluation regarding left-sided chest pain. Onset of symptoms early this morning, sudden onset of left-sided chest pain, described as dull ache, severity mild, radiated to the left upper extremity. Patient denies any shortness of breath denies any cough denies any other complaints. Currently patient is taking blood thinner for DVT. No medication was taken prior to arrival. Chest x-ray, and EKG also came back normal. Patient's workup all came back unremarkable. Including troponin which is normal. Patient was given Toradol IM and Tylenol with significant improvement of pain. Repeat troponin is not needed at this time, chest pain is more than 6 hours prior to ER visit. Patient stable for discharge home. Differential Diagnosis Differential Diagnosis: Chest pain, left upper extremity pain, ACS Lab Data 07/09/24 14:18 07/09/24 14:18 Labs: Lab Results 07/09/24 07/09/24 Range/Units 14:13 14:18 WBC 4.4 (3.6-11.0) Thou/mm3 RBC 4.76 (4.00-5.20) Miln/mm3 Hgb 14.7 (12.0-16.0) g/dL Hct 44.3 (36.0-46.0) % MCV 93 (80-100) fL MCH 30.9 (25.0-35.0) pg MCHC 33.2 (31.0-37.0) g/dl RDW Std Deviation 42.8 (36.4-46.3) fL Plt Count 271 (140-440) Thou/mm3 Neut % (Auto) 55 (37-80) % Lymph % (Auto) 34 (10-50) % [place] % (Auto) 7 (0-12) % Eos % (Auto) 3 (0-10) % Baso % (Auto) 1 (0-2.5) % Neut # (Auto) 2.4 (1.8-7.7) Thou/mm3 Lymph # (Auto) 1.5 (1.0-4.8) Thou/mm3 [place] # (Auto) 0.3 (0.0-0.8) Thou/mm3 Eos # (Auto) 0.2 (0.0-0.5) Thou/mm3 Baso # (Auto) 0.0 (0.0-0.2) Thou/mm3 Immature Gran # (Auto) 0.01 H (0.00-0.00) Thou/mm3 Absolute Nucleated RBC 0.00 (0.00-0.00) Thou/mm3 Immature Gran % 0 (0-0) % Nucleated RBC % 0 (0) /100 WBC Sodium 140 (136-145) mMol/L Potassium 4.0 (3.4-5.1) mMol/L Chloride 105 (98-107) mMol/L Carbon Dioxide 30.3 (20.0-31.0) mMol/L Anion Gap 5 L (7-16) BUN 17 (9-23) mg/dL Creatinine 1.3 (0.6-1.3) mg/dL Estim Creat Clear Calc 40.4 L (>60) mL/min eGFR 46 L (60 - ) See Note BUN/Creatinine Ratio 13 (12-20) Ratio Glucose 96 (74-106) mg/dL Calculated Osmolality 280 (275-295) Calcium 9.7 (8.3-10.6) mg/dL Corrected Calcium 9.7 (8.5-10.1) mg/dL Total Bilirubin 0.3 (0.3-1.2) mg/dL AST 16 (0-34) U/L ALT 9 L (10-49) U/L Alkaline Phosphatase 70 (46-116) U/L Troponin I < 0.020 (0.0-0.045) ng/mL Total Protein 7.0 (5.7-8.2) gm/dL Albumin 4.2 (3.4-4.8) gm/dL Globulin 2.8 (2.3-3.5) gm/dL Albumin/Globulin Ratio 1.5 (1.2-2.2) Urine Opiates Screen Negative (Negative) Urine Fentanyl Screen Negative (Negative) Ur Barbiturates Screen Negative (Negative) U Amphetamin/Meth Scrn Negative (Negative) U Benzodiazepines Scrn Negative (Negative) U Cocaine Metab Screen Negative (Negative) U Marijuana (THC) Screen Negative (Negative) Discharge Plan Plan Patient Disposition: HOME (Self Care) Disposition Comment: Stable Prescriptions/Referrals Prescriptions/Med Rec: New meloxicam 15 mg tablet 15 mg PO QDAY Qty: 20 0RF No Action cephalexin 500 mg capsule 500 mg PO BID Qty: 10 0RF ibuprofen 800 mg tablet 800 mg PO TID PRN (Reason: pain) Qty: 30 0RF tramadol 50 mg tablet 50 mg PO BID PRN (Reason: pain) Qty: 4 0RF acetaminophen-codeine 300-30 mg tablet 1 tab PO TID PRN (Reason: pain) Qty: 20 0RF diphenhydramine HCl 50 mg capsule 50 mg PO BID Qty: 10 0RF dexamethasone 6 mg tablet 6 mg PO BID Qty: 14 0RF tramadol 50 mg tablet 50 mg PO TID PRN (Reason: pain) Qty: 20 0RF Referrals: Alex Boswell MD [Primary Care Provider] - In 1 week Problem List Clinical Impression: Chest pain Patient/Caregiver Discharge Instructions Discharge Activity: activity as tolerated Education Materials: Understanding the Pain Response Additional Instructions: Thank you for the opportunity for serving you today. You are stable for discharged . You are advised to: Follow-up with your PCP in 1 to 2 days Return to ED for worsening of symptoms Increase oral fluids Take medication as prescribed Print Language: Malay Stand Alone Forms: Sabrina Award Info., Patient Portal Info Letter PA/GABRIELA Supervising Physician ELAN/GABRIELA Supervising Physician: MD Sylvia
[2024-07-09] MEDS: KETOROLAC INJ 60 MG/2 ML VIAL 30 MG IM (16:59)
== END 2024-07-09 17:11 | disposition home or self-care (01) ==
PROVIDERS: Nurse Practitioner Primary Care; Emergency Provider Emergency Medicine; PCP Student in an Organized Health Care Education/Training Program
DX: R07.89 Other chest pain (principal); R94.31 Abnormal electrocardiogram [ECG] [EKG]
CPT/HCPCS: 36415; 71046; 80053; 80307; 84484; 85025; 93005; 96372; 99283; J1885; A9270

== ENCOUNTER 2024-07-15 10:58 | Emergency (ER) | payer MEDICARE, MEDICAID, SELFPAY ==
[2024-07-15 11:09] VITALS: BP 115/72; PULSE 72; RESP 17; TEMP 36.7; O2SAT 98; BMI 25.4
--- NOTE | 2024-07-15 11:35 | XR_ITS ---
Examination: CT brain head without contrast. 2-D sagittal coronal reconstructions Date and time of exam:July 15, 2024 at 1202 hours INDICATIONS: Ground-level fall today with injury to the head, head pain CTDI: vol (mGy):48.7 DLP: (mGycm):1010 Technique: Multiple CT axial sections of the brain have been obtained, 5 mm slice thickness. Contrast has not been administered. 2-D sagittal, coronal reconstructions have been obtained Low dose protocols were performed. One or more of the following dose reduction techniques were used; automated exposure control, adjustment of the mA and/or KV according to patient size, use of iterative reconstruction technique. Findings: No significant ventricular enlargement. Intra-axial or extra-axial hemorrhage density is not seen. No mass effect or midline shift Basal cisterns are not remarkable. Fourth ventricle is midline. Cranial vault intact. Impression: Negative for acute hemorrhage, mass effect or midline shift
--- NOTE | 2024-07-15 11:35 | XR_ITS ---
Examination: CT cervical spine without contrast 2-D sagittal reconstructions 2-D coronal reconstructions 3-D reconstructions. Exam date and time:July 15, 2024 1202 hours INDICATIONS: Ground-level fall today with into the neck, neck pain CTDI:vol (mGy) 7.90 DLP: (mGycm) 173 Technique: Multiple 2 mm axial sections of the cervical spine have been obtained. The coronal and sagittal reconstructions have been obtained. 3-D reconstructions have been obtained. Low dose protocols were performed. One or more of the following dose reduction techniques were used; automated exposure control, adjustment of the mA and/or KV according to patient size, use of iterative reconstruction technique. Findings: Axial sections demonstrate intact base of the skull. C1 exhibit satisfactory relationship to the odontoid. No acute cervical vertebral body fracture seen. Alignment posterior spinous processes satisfactory. Impression: No acute cervical fracture.
--- NOTE | 2024-07-15 13:14 | PD.EDHEAD ---
ED Head Injury RME/HPI General Chief complaint: Head Injury Stated complaint: FALL Time Seen by Provider: 07/15/24 11:35 Arrival date/time: 07/15/24 10:58 64-year-old female presents to the emergency department today complains of head and neck pain patient reports pain to the back of the head as well as neck patient reports no fever nausea or vomiting patient reports no chest pain shortness of breath or dizziness. Patient reports fall is mechanical Limitations: no limitations Related Data Previous Rx's ?Medication ?Instructions ?Recorded cephalexin 500 mg capsule 500 mg PO BID #10 caps 01/18/23 ibuprofen 800 mg tablet 800 mg PO TID PRN pain #30 tabs 09/12/23 tramadol 50 mg tablet 50 mg PO BID PRN pain #4 tabs 01/18/24 diphenhydramine HCl 50 mg capsule 50 mg PO BID #10 caps 02/15/24 dexamethasone 6 mg tablet 6 mg PO BID #14 tabs 04/10/24 tramadol 50 mg tablet 50 mg PO TID PRN pain #20 tabs 04/10/24 acetaminophen 300 mg-codeine 30 mg 1 tab PO TID PRN pain #20 tabs 05/22/24 tablet meloxicam 15 mg tablet 15 mg PO QDAY #20 tabs 07/09/24 Allergies Allergy/AdvReac Type Severity Reaction Status Date / Time metronidazole Allergy Severe RASH Verified 07/09/24 13:08 povidone-iodine Allergy Severe RASH, Verified 07/09/24 13:08 SWELLING Review of Systems Review of Systems Systems Reviewed: All systems reviewed, normal except as documented Constitutional Constitutional: Reports system reviewed and no additional complaints, except as documented, Denies fatigue, Denies fever(s) and Reports headache(s) Eyes Eyes: Reports system reviewed and no additional complaints, except as documented ENT Ears, Nose, Mouth, and Throat: Reports system reviewed and no additional complaints, except as documented, Denies dizziness and Reports headache(s) Cardiovascular Cardiovascular: Reports system reviewed and no additional complaints, except as documented, Denies chest pain, Denies dyspnea and Denies dyspnea on exertion Respiratory Respiratory: Reports system reviewed and no additional complaints, except as documented, Denies chest congestion, Denies cough, Denies dyspnea and Denies dyspnea on exertion Gastrointestinal Gastrointestinal: Reports system reviewed and no additional complaints, except as documented, Denies abdominal pain, Denies nausea and Denies vomiting Genitourinary Genitourinary: Reports system reviewed and no additional complaints, except as documented, Denies flank pain, Denies hematuria and Denies pelvic pain Musculoskeletal Musculoskeletal: Reports system reviewed and no additional complaints, except as documented, Denies abnormal gait, Denies numbness, Denies stiffness and Denies tingling Integumentary/Breasts Skin/Breast: Reports system reviewed and no additional complaints, except as documented, Denies rash and Denies wounds Neurologic Neurologic: Reports system reviewed and no additional complaints, except as documented, Denies abnormal gait, Denies dizziness, Reports headache(s), Denies numbness and Denies tingling Psychiatric Psychiatric: Reports system reviewed and no additional complaints, except as documented and Denies anxiety Endocrine Endocrine: Denies fatigue Past Medical History Past Medical History NEUROLOGIC: Negative Neurological Disorders CARDIAC: Positive Deep Vein Thrombosis; Negative Cardiac Disorders, Congestive Heart Failure or Hypertension RESPIRATORY: Positive Chronic Obstructive Pulmonary Disease (COPD) and Asthma GASTROINTESTINAL: Positive Gastrointestinal Disorders and Gall Bladder Disease GENITOURINARY: Negative Renal Disease MUSCULOSKELETAL: Positive Musculoskeletal Disorders and Arthritis ENDOCRINE: Negative Diabetes Mellitus Type 1 or Diabetes Mellitus Type 2 HEMATOLOGIC: Negative Sickle Cell Disease OTHER HISTORY: Negative Cancer Surgical History SURGICAL: Negative Cardiac Surgery Social History SMOKING STATUS: Current some day smoker 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) ED Exam General Limitations: Present no limitations General appearance: Present alert and in no apparent distress Head Head exam: Present atraumatic, normocephalic and normal inspection Eye Eye exam: Present normal appearance, PERRL and EOMI; Absent conjunctival injection ENT ENT exam: Present normal exam, normal oropharynx and mucous membranes moist Neck Neck exam: Present normal inspection, full ROM and trachea midline Chest Chest inspection: Present normal inspection and symmetric chest wall rise Respiratory Respiratory exam: Present normal lung sounds bilaterally; Absent respiratory distress Cardiovascular Cardiovascular exam: Present regular rate, normal rhythm and normal heart sounds Abdominal Exam Abdominal exam: Present soft and normal bowel sounds; Absent distention, tenderness, guarding, rebound or rigidity Extremities Exam Extremities exam: Present normal inspection and full ROM Back Exam Back exam: Present normal inspection and full ROM Neurological Exam Neurological exam: Present alert, oriented X3, CN II-XII intact, normal gait and reflexes normal; Absent motor sensory deficit Psychiatric Psychiatric exam: Present normal affect and normal mood Skin Skin exam: Present warm, dry, intact and normal color; Absent rash Course Quality Measures none Orders Category Date Time Status CT cervical spine wo con Stat Exams 07/15/24 11:[address] head/brain wo con Stat Exams 07/15/24 11:35 Completed Acetaminophen Tab [Tylenol Tab] Med 07/15/24 13:19 Discontinued 650 mg PO X1 ONE Vital Signs Vital signs: Vital Signs Temperature 98.1 F 07/15/24 11:09 Pulse Rate 72 07/15/24 11:09 Respiratory Rate 17 07/15/24 11:09 Blood Pressure 115/72 07/15/24 11:09 Pulse Oximetry (%) 98 07/15/24 11:09 Oxygen Delivery Method Room Air 07/15/24 11:09 O2 saturation 98% r/a wnl Head Injury MDM Narrative MDM Narrative:: 64-year-old female presents to the emergency department today complains of head and neck pain patient reports pain to the back of the head as well as neck patient reports no fever nausea or vomiting patient reports no chest pain shortness of breath or dizziness. Patient reports fall is mechanical On exam patient well-appearing patient does not appear ill or toxic patient in no acute distress Patient walks steady gait CT scan of head and cervical spine obtained no acute emergent findings noted Patient discharged home in no distress to follow-up with primary care doctor in the next 24 to 48 hours and for any worsening symptoms to return to the ER immediately Patient data External records reviewed:: [facility] previous records Clinical information provided by:: patient Social determinants that could affect healthcare access:: none Patient has the following chronic illnesses:: See history How is presenting disease/condition affected by chronic disease/condition?: no chronic disease Evaluation data The following diagnostics were reviewed and interpreted by me:: radiology exam(s) Lab and/or radiology exams considered but not ordered:: Radiology obtain Interpretation Summary: Reviewed by me Medications / Prescriptions Medications or Prescriptions considered but not ordered:: Given Medication administrations:: Medication Administration History Discontinued Medications Acetaminophen (Acetaminophen 325 Mg Tablet) 650 mg PO X1 ONE Stop: 07/15/24 13:20 Last Admin: 07/15/24 13:15 Dose: 650 mg Documented By: Given Consultations Consultation(s) initiated? (list below): No Diagnosis Differential diagnosis head injury: concussion without loss of consciousness, closed head injury and subarachnoid hematoma Most likely diagnosis given after review of the tests above:: Headache, closed head injury Admission Indicated Admission indicated?: not indicated Admission Request Was there a request for admission?: No Disposition Plan Disposition Plan: Discharge Discharge Attestation Discharge Attestation: The patient and all family members were given an opportunity to ask questions and understood the discharge instructions. Discharge instructions specifically effects, indications for sooner follow up or return to the emergency department, and the expected course of current diagnosis. Patient condition: Stable Discharge Plan Plan Patient Disposition: HOME (Self Care) Disposition Comment: Stable Prescriptions/Referrals Prescriptions/Med Rec: No Action cephalexin 500 mg capsule 500 mg PO BID Qty: 10 0RF ibuprofen 800 mg tablet 800 mg PO TID PRN (Reason: pain) Qty: 30 0RF tramadol 50 mg tablet 50 mg PO BID PRN (Reason: pain) Qty: 4 0RF acetaminophen-codeine 300-30 mg tablet 1 tab PO TID PRN (Reason: pain) Qty: 20 0RF diphenhydramine HCl 50 mg capsule 50 mg PO BID Qty: 10 0RF dexamethasone 6 mg tablet 6 mg PO BID Qty: 14 0RF tramadol 50 mg tablet 50 mg PO TID PRN (Reason: pain) Qty: 20 0RF meloxicam 15 mg tablet 15 mg PO QDAY Qty: 20 0RF Problem List Clinical Impression: Fall, Neck pain Patient/Caregiver Discharge Instructions Education Materials: ED Neck Pain Additional Instructions: Please follow up with your primary care doctor in the next 24-48hrs for any worsening symptoms return here immediately Print Language: German Stand Alone Forms: Sabrina Award Info., Patient Portal Info Letter PA/GABRIELA Supervising Physician PA/GABRIELA Supervising Physician: Dr dawn
[2024-07-15] MEDS: ACETAMINOPHEN 325 MG TABLET 650 MG PO (13:15)
--- NOTE | 2024-07-15 13:47 | PC.NURSE ---
RN SPOKE TO DANIEL FIRE BATTALION CHIEF FROM [facility] FOR RIDE TRANSPORTATION BACK TO INTERMEDIATE, PER PT'S REQUEST; PER DANIEL, WILL SET UP RIDE FOR PT BACK TO OUR FACILITY;ETA IS 20 MINUTES. PT MADE AWARE.
== END 2024-07-15 14:01 | disposition home or self-care (01) ==
LOC: SERX 14:19
PROVIDERS: Emergency Provider Emergency Medicine
DX: M54.2 Cervicalgia (principal)
CPT/HCPCS: 70450; 72125; 99284; A9270

== ENCOUNTER 2024-07-15 20:16 | Emergency (ER) | payer MEDICARE, MEDICAID, SELFPAY ==
[2024-07-15 20:16] VITALS: PULSE 67; RESP 16; O2SAT 95
[2024-07-15 20:25] VITALS: BP 136/81; PULSE 61; RESP 18; TEMP 36.7; O2SAT 99; BMI 25.4
--- NOTE | 2024-07-15 20:36 | EDNOTE_ITS ---
ED General RME/HPI General Chief complaint: General Adult/Misc Complain Stated complaint: Fell earlier/worsening pain Seen earlier Time Seen by Provider: 07/15/24 20:25 Source: patient Arrival date/time: 07/15/24 20:16 64-year-old female presents to the emergency room with a chief complaint of generalized pain throughout her body. Patient states she had a fall earlier today came to the emergency room and was discharged but was told that if her pain gets worse to return. Patient states she is having pain. Mode of arrival: ambulatory Limitations: no limitations Related Data Previous Rx's ?Medication ?Instructions ?Recorded cephalexin 500 mg capsule 500 mg PO BID #10 caps 01/18/23 ibuprofen 800 mg tablet 800 mg PO TID PRN pain #30 tabs 09/12/23 tramadol 50 mg tablet 50 mg PO BID PRN pain #4 tabs 01/18/24 diphenhydramine HCl 50 mg capsule 50 mg PO BID #10 caps 02/15/24 dexamethasone 6 mg tablet 6 mg PO BID #14 tabs 04/10/24 tramadol 50 mg tablet 50 mg PO TID PRN pain #20 tabs 04/10/24 acetaminophen 300 mg-codeine 30 mg 1 tab PO TID PRN pain #20 tabs 05/22/24 tablet meloxicam 15 mg tablet 15 mg PO QDAY #20 tabs 07/09/24 Allergies Allergy/AdvReac Type Severity Reaction Status Date / Time metronidazole Allergy Severe RASH Verified 07/09/24 13:08 povidone-iodine Allergy Severe RASH, Verified 07/09/24 13:08 SWELLING Review of Systems Review of Systems Systems Reviewed: All systems reviewed, normal except as documented Constitutional Constitutional: Reports system reviewed and no additional complaints, except as documented, Denies fatigue, Denies fever(s), Denies headache(s) and Denies weakness Eyes Eyes: Reports system reviewed and no additional complaints, except as documented, Denies blurry vision and Denies change in vision ENT Ears, Nose, Mouth, and Throat: Reports system reviewed and no additional complaints, except as documented, Denies otalgia, Denies headache(s), Denies nasal congestion, Denies throat swelling and Denies vertigo Cardiovascular Cardiovascular: Reports system reviewed and no additional complaints, except as documented, Denies chest pain, Denies dyspnea and Denies dyspnea on exertion Respiratory Respiratory: Reports system reviewed and no additional complaints, except as documented, Denies chest congestion, Denies cough, Denies dyspnea, Denies dyspnea on exertion and Denies wheezing Gastrointestinal Gastrointestinal: Reports system reviewed and no additional complaints, except as documented, Denies abdominal pain, Denies cramping, Denies nausea and Denies vomiting Genitourinary Genitourinary: Reports system reviewed and no additional complaints, except as documented Musculoskeletal Musculoskeletal: Reports system reviewed and no additional complaints, except as documented, Reports arthralgias, Denies back pain and Reports myalgias Integumentary/Breasts Skin/Breast: Reports system reviewed and no additional complaints, except as documented and Denies wounds Neurologic Neurologic: Reports system reviewed and no additional complaints, except as documented, Denies confusion, Denies headache(s), Denies lack of coordination, Denies vertigo and Denies weakness Psychiatric Psychiatric: Reports system reviewed and no additional complaints, except as documented, Denies anxiety, Denies confusion, Denies depression, Denies paranoia, Denies suicidal ideation and Denies tactile hallucinations Endocrine Endocrine: Reports system reviewed and no additional complaints, except as documented and Denies fatigue Hematologic/Lymphatic Hematologic/Lymphatic: Reports system reviewed and no additional complaints, except as documented and Denies lymphadenopathy Allergic/Immunologic Allergic/Immunologic: Reports system reviewed and no additional complaints, except as documented, Denies throat swelling, Denies urticaria and Denies wheezing Past Medical History Past Medical History NEUROLOGIC: Negative Neurological Disorders CARDIAC: Positive Deep Vein Thrombosis; Negative Cardiac Disorders, Congestive Heart Failure or Hypertension RESPIRATORY: Positive Chronic Obstructive Pulmonary Disease (COPD) and Asthma GASTROINTESTINAL: Positive Gastrointestinal Disorders and Gall Bladder Disease GENITOURINARY: Negative Renal Disease MUSCULOSKELETAL: Positive Musculoskeletal Disorders and Arthritis ENDOCRINE: Negative Diabetes Mellitus Type 1 or Diabetes Mellitus Type 2 HEMATOLOGIC: Negative Sickle Cell Disease OTHER HISTORY: Negative Cancer Surgical History SURGICAL: Negative Cardiac Surgery Social History SMOKING STATUS: Former smoker 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) ED Exam General Limitations: Present no limitations General appearance: Present alert and in no apparent distress Head Head exam: Present atraumatic Eye Eye exam: Present normal appearance, PERRL and EOMI ENT ENT exam: Present normal exam, normal oropharynx and mucous membranes moist Neck Neck exam: Present normal inspection, full ROM and trachea midline Chest Chest inspection: Present normal inspection and symmetric chest wall rise Respiratory Respiratory exam: Present normal lung sounds bilaterally Cardiovascular Cardiovascular exam: Present regular rate, normal rhythm and normal heart sounds Abdominal Exam Abdominal exam: Present soft and normal bowel sounds Extremities Exam Extremities exam: Present normal inspection and full ROM Back Exam Back exam: Present normal inspection and full ROM Neurological Exam Neurological exam: Present alert, oriented X3 and CN II-XII intact Psychiatric Psychiatric exam: Present normal affect and normal mood Skin Skin exam: Present warm, dry, intact and normal color Course Quality Measures none Orders Category Date Time Status Ketorolac Inj [Toradol Inj] Med 07/15/24 20:35 Discontinued 30 mg IM X1 ONE Vital Signs Vital signs: Vital Signs Temperature 98.1 F 07/15/24 20:25 Pulse Rate 61 07/15/24 20:25 Respiratory Rate 18 07/15/24 20:25 Blood Pressure 136/81 H 07/15/24 20:25 Pulse Oximetry (%) 99 07/15/24 20:25 Oxygen Delivery Method Room Air 07/15/24 20:25 O2 saturation 99% within normal limits MDM Patient data External records reviewed:: [facility] previous records Clinical information provided by:: patient Social determinants that could affect healthcare access:: none Patient has the following chronic illnesses:: No chronic illnesses How is presenting disease/condition affected by chronic disease/condition?: no chronic disease Evaluation data The following diagnostics were reviewed and interpreted by me:: lab results and radiology exam(s) Lab and/or radiology exams considered but not ordered:: Labs and radiology exams considered in order Interpretation Summary: N/A Medications Medications considered but not ordered:: Medication Medication administrations:: Medication Administration History Discontinued Medications Ketorolac Tromethamine (Ketorolac Inj 60 Mg/2 Ml Vial) 30 mg IM X1 ONE Stop: 07/15/24 20:36 Last Admin: 07/15/24 21:14 Dose: 30 mg Documented By: Medication given Consultations Consultation(s) initiated? (list below): No Diagnosis Differential Diagnosis ED Complaint MDM: Generalized pain Most likely diagnosis given after review of the tests above:: Generalized pain Admission Indicated Admission indicated?: not indicated Explain why admission is indicated or not indicated:: N/A Admission Request Was there a request for admission?: No Disposition Plan Disposition Plan: Discharge Discharge Attestation Discharge Attestation: The patient and all family members were given an opportunity to ask questions and understood the discharge instructions. Discharge instructions specifically effects, indications for sooner follow up or return to the emergency department, and the expected course of current diagnosis. Patient condition: Stable Medical Decision Making MDM Narrative MDM Narrative: 64-year-old female presents to the emergency room with a chief complaint of generalized pain throughout her body. Patient states she had a fall earlier today came to the emergency room and was discharged but was told that if her pain gets worse to return. Patient states she is having pain. Clinically the patient appears nontoxic and in no acute distress. Physical examination shows a normal neurological exam pupils are PERRLA EOMs are intact the patient is a GCS of 15. Patient was here earlier this morning after having a fall. The CT of the head and brain as well as neck were negative for any acute findings. The patient denies any dizziness lightheadedness or headaches. Patient states her only complaint is increased pain and she does not have any more pain medication. Pain medication was given to the patient patient was reevaluated in 45 minutes with significant improvement. Patient was discharged and educated to follow-up with her primary care provider and return to the emergency room for any evidence of worsening signs or symptoms Differential Diagnosis Differential Diagnosis: Generalized pain Discharge Plan Plan Patient Disposition: HOME (Self Care) Disposition Comment: Stable Prescriptions/Referrals Prescriptions/Med Rec: No Action cephalexin 500 mg capsule 500 mg PO BID Qty: 10 0RF ibuprofen 800 mg tablet 800 mg PO TID PRN (Reason: pain) Qty: 30 0RF tramadol 50 mg tablet 50 mg PO BID PRN (Reason: pain) Qty: 4 0RF acetaminophen-codeine 300-30 mg tablet 1 tab PO TID PRN (Reason: pain) Qty: 20 0RF diphenhydramine HCl 50 mg capsule 50 mg PO BID Qty: 10 0RF dexamethasone 6 mg tablet 6 mg PO BID Qty: 14 0RF tramadol 50 mg tablet 50 mg PO TID PRN (Reason: pain) Qty: 20 0RF meloxicam 15 mg tablet 15 mg PO QDAY Qty: 20 0RF Referrals: Alex Boswell MD [Primary Care Provider] - In 1 week Problem List Clinical Impression: Generalized pain Patient/Caregiver Discharge Instructions Education Materials: ED Pain, Acute, Uncertain Cause Additional Instructions: Please follow-up with your primary care provider in the next 24 to 48 hours. Medication was given to help you alleviate your pain. For any evidence of worsening signs or symptoms please return to the emergency room immediately Print Language: Occitan Stand Alone Forms: Sabrina Award Info., Patient Portal Info Letter PA/CHILD ADVOCATE Supervising Physician PA/CHILD ADVOCATE Supervising Physician: Dr. Ferguson
[2024-07-15] MEDS: KETOROLAC INJ 60 MG/2 ML VIAL 30 MG IM (21:14)
[2024-07-15 21:58] VITALS: RESP 18
== END 2024-07-15 22:00 | disposition home or self-care (01) ==
PROVIDERS: Emergency Provider Emergency Medicine; PCP Student in an Organized Health Care Education/Training Program
DX: R52 Pain, unspecified (principal)
CPT/HCPCS: 96372; 99283; J1885

== ENCOUNTER 2024-09-11 20:06 | Emergency (ER) | payer MEDICARE, MEDICAID, SELFPAY ==
[2024-09-11 20:08] VITALS: BMI 24.0
[2024-09-11 20:14] VITALS: BP 201/83; PULSE 64; RESP 18; TEMP 37; O2SAT 96
--- NOTE | 2024-09-11 20:15 | PD.EDEXREM ---
ED Extremity Problem RME/HPI General Chief complaint: Extremity Problem,Nontraumatic Stated complaint: HARD TIME MOVING BOTH ARMS DUE TO PAIN Time Seen by Provider: 09/11/24 20:12 Arrival date/time: 09/11/24 20:06 RME / HPI RME / HPI Narrative: This section includes all my notes and documentations, including HPI, PE, and ED course. Hans Belle MD HPI: 64yo female with a history of DVT on Eliquis presents to the ED for a chief complaint of BUE pain. Patient states she's had a DVT in her neck for the last 6 months, reporting she's had significant BUE pain since then. She states her pain has been persistent and was unable to tolerate it, so she came in for evaluation. Patient denies any falls or injuries. She denies any shortness of breath, chest pain or any other associated symptoms. No other complaints reported. ROS: All negative except as documented in HPI. Physical Exam: General: Alert and oriented. No acute distress when remaining still. High BP noted. Eyes: Conjunctivae and lids clear. ENT: No nasal congestion. Neck: Supple. Heart: RRR. Lungs: No respiratory distress. Good air movement. No rhonchi, wheezing, rales. Abdomen: Soft and nontender. Legs: No clubbing, cyanosis, edema. Skin: Warm and dry. Neuro: Alert and oriented X 3. I reviewed all diagnostic test results. My review of the US report is: Positive for thrombus in the left internal jugular vein. At this point, diagnoses include DVT and Hypertension. Treatment here included clonidine and two Tylenol #3. Significant improvement noted. Recommended more care with PCP. Based on my best medical judgment, made decision no further evaluation or treatment indicated at this time. Patient understands and agrees to the discharge instructions customized and printed, see below. Discharge Instructions from Dr. Belle printed for you: 1. Continue Eliquis for your blood clots. 2. Tylenol with codeine for severe pain. 3. Clonidine as prescribed for high BP. 4. See a private doctor on 09/14/2024 for recheck and further care. Ask to review the official radiology report of your ultrasound today. Ask for help for your blood clots and high BP. 5. Seek immediate medical care with worsening, chest pain, shortness of breath, or with any concerns. Hans Belle MD Related Data Previous Rx's ?Medication ?Instructions ?Recorded cephalexin 500 mg capsule 500 mg PO BID #10 caps 01/18/23 ibuprofen 800 mg tablet 800 mg PO TID PRN pain #30 tabs 09/12/23 tramadol 50 mg tablet 50 mg PO BID PRN pain #4 tabs 01/18/24 diphenhydramine HCl 50 mg capsule 50 mg PO BID #10 caps 02/15/24 dexamethasone 6 mg tablet 6 mg PO BID #14 tabs 04/10/24 tramadol 50 mg tablet 50 mg PO TID PRN pain #20 tabs 04/10/24 acetaminophen 300 mg-codeine 30 mg 1 tab PO TID PRN pain #20 tabs 05/22/24 tablet meloxicam 15 mg tablet 15 mg PO QDAY #20 tabs 07/09/24 acetaminophen 300 mg-codeine 30 mg 2 tab PO Q8H PRN pain #20 tabs 09/11/24 tablet clonidine HCl 0.1 mg tablet 0.1 mg PO BID #60 tabs 09/11/24 Allergies Allergy/AdvReac Type Severity Reaction Status Date / Time metronidazole Allergy Severe RASH Verified 09/11/24 20:07 povidone-iodine Allergy Severe RASH, Verified 09/11/24 20:07 SWELLING Review of Systems Review of Systems Systems Reviewed: All systems reviewed, normal except as documented Past Medical History Past Medical History NEUROLOGIC: Negative Neurological Disorders CARDIAC: Positive Deep Vein Thrombosis; Negative Cardiac Disorders, Congestive Heart Failure or Hypertension RESPIRATORY: Positive Chronic Obstructive Pulmonary Disease (COPD) and Asthma GASTROINTESTINAL: Positive Gastrointestinal Disorders and Gall Bladder Disease GENITOURINARY: Negative Renal Disease MUSCULOSKELETAL: Positive Musculoskeletal Disorders and Arthritis ENDOCRINE: Negative Diabetes Mellitus Type 1 or Diabetes Mellitus Type 2 HEMATOLOGIC: Negative Sickle Cell Disease OTHER HISTORY: Negative Cancer Surgical History SURGICAL: Negative Cardiac Surgery Social History SMOKING STATUS: Former smoker 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) ED Exam Narrative Physical exam: As noted in HPI. Course Quality Measures none Orders Category Date Time Status US venous doppler UE BI Stat Exams 09/11/24 20:16 Completed ACETAMINOPHEN w/COD 300-30 [Tylenol w/Cod #3] Med 09/11/24 23:20 Discontinued 2 tab PO X1 ONE cloNIDine HCL [Catapres] Med 09/11/24 20:16 Discontinued 0.2 mg PO X1 ONE Vital Signs Vital signs: Vital Signs Temperature 98.6 F 09/11/24 20:14 Pulse Rate 64 09/11/24 20:14 Respiratory Rate 18 09/11/24 20:14 Blood Pressure 201/83 H 09/11/24 20:14 Pulse Oximetry (%) 96 09/11/24 20:14 Oxygen Delivery Method Room Air 09/11/24 20:14 Extremity Problem MDM Narrative MDM Narrative:: Scribe Attestation: 09/11/24 Juju Shane am scribing for and in the presence of Dr. Belle. Patient data External records reviewed:: [facility] previous records (Per chart review, patient was seen here on 07/15/24 for generalized pain.) Clinical information provided by:: patient Social determinants that could affect healthcare access:: none Patient has the following chronic illnesses:: DVT, asthma How is presenting disease/condition affected by chronic disease/condition?: uneffected by Evaluation data The following diagnostics were reviewed and interpreted by me:: radiology exam(s) Lab and/or radiology exams considered but not ordered:: none Interpretation Summary: Upper extremity DVT and high BP Medications / Prescriptions Medications or Prescriptions considered but not ordered:: none Medication administrations:: Medication Administration History Discontinued Medications Acetaminophen/Codeine Phosphate (Acetaminophen W/Cod 300-30 Tablet) 2 tab PO X1 ONE Stop: 09/11/24 23:21 Last Admin: 09/11/24 23:33 Dose: 2 tab Documented By: CVL Clonidine (Clonidine Hcl 0.1 Mg Tablet) 0.2 mg PO X1 ONE Stop: 09/11/24 20:17 Last Admin: 09/11/24 20:19 Dose: 0.2 mg Documented By: CVL Clonidine and two Tylenol #3 Consultations Consultation(s) initiated? (list below): No Diagnosis Extremity Problem Differential Diagnosis: superficial thrombophlebitis and deep venous thrombosis of upper extremity Most likely diagnosis given after review of the tests above:: DVT, Hypertension Admission Indicated Admission indicated?: not indicated Explain why admission is indicated or not indicated:: No criteria for admission. Admission Request Was there a request for admission?: No Disposition Plan Disposition Plan: Discharge Discharge Attestation Discharge Attestation: The patient and all family members were given an opportunity to ask questions and understood the discharge instructions. Discharge instructions specifically effects, indications for sooner follow up or return to the emergency department, and the expected course of current diagnosis. Patient condition: Stable Discharge Plan Plan Patient Disposition: HOME (Self Care) Prescriptions/Referrals Prescriptions/Med Rec: New acetaminophen-codeine 300-30 mg tablet 2 tab PO Q8H MDD 6 PRN (Reason: pain) Qty: 20 0RF clonidine HCl 0.1 mg tablet 0.1 mg PO BID Qty: 60 0RF No Action cephalexin 500 mg capsule 500 mg PO BID Qty: 10 0RF ibuprofen 800 mg tablet 800 mg PO TID PRN (Reason: pain) Qty: 30 0RF tramadol 50 mg tablet 50 mg PO BID PRN (Reason: pain) Qty: 4 0RF acetaminophen-codeine 300-30 mg tablet 1 tab PO TID PRN (Reason: pain) Qty: 20 0RF diphenhydramine HCl 50 mg capsule 50 mg PO BID Qty: 10 0RF dexamethasone 6 mg tablet 6 mg PO BID Qty: 14 0RF tramadol 50 mg tablet 50 mg PO TID PRN (Reason: pain) Qty: 20 0RF meloxicam 15 mg tablet 15 mg PO QDAY Qty: 20 0RF Referrals: Alex Boswell MD [Primary Care Provider] - In 1 week Problem List Clinical Impression: DVT (deep venous thrombosis), Hypertension Patient/Caregiver Discharge Instructions Discharge Activity: activity as tolerated Education Materials: ED Deep Vein Thrombosis (DVT), ED Hypertension, New (Begin Treatment) Additional Instructions: Discharge Instructions from Dr. Belle printed for you: 1. Continue Eliquis for your blood clots. 2. Tylenol with codeine for severe pain. 3. Clonidine as prescribed for high BP. 4. See a private doctor on 09/14/2024 for recheck and further care. Ask to review the official radiology report of your ultrasound today. Ask for help for your blood clots and high BP. 5. Seek immediate medical care with worsening, chest pain, shortness of breath, or with any concerns. Print Language: Icelandic Stand Alone Forms: Sabrina Award Info., Patient Portal Info Letter
--- NOTE | 2024-09-11 20:16 | XR_ITS ---
Examination: Venous duplex upper extremity sonogram, bilateral. Date and time of exam: September 11, 2024 10:40 PM INDICATIONS: Bilateral arm pain and difficulty moving arms one week Technique: Multiple sonographic images of the deep venous system have been obtained. B-mode/2-D grayscale imaging of vascular structures and Doppler spectral analysis (waveforms) and color performed Both legs are examined. Findings: Positive for deep vein thrombus involving the left internal jugular vein The remaining left arm deep venous system unremarkable Right arm deep venous system normal IMPRESSION: Positive for thrombus in the left internal jugular vein
[2024-09-11 20:19] VITALS: BP 201/83; PULSE 64
[2024-09-11] MEDS: cloNIDine HCL 0.1 MG TABLET 0.2 MG PO (20:19)
[2024-09-11 21:44] VITALS: BP 126/75; PULSE 53; RESP 18; O2SAT 96
[2024-09-11] MEDS: ACETAMINOPHEN w/COD 300-30 TABLET 2 TAB PO (23:33)
[2024-09-12 00:01] VITALS: RESP 18
== END 2024-09-12 00:01 | disposition home or self-care (01) ==
PROVIDERS: Emergency Provider Emergency Medicine; PCP Student in an Organized Health Care Education/Training Program
DX: I82.C12 Acute embolism and thrombosis of left internal jugular vein (principal); M79.601 Pain in right arm; I10 Essential (primary) hypertension; Z87.891 Personal history of nicotine dependence
CPT/HCPCS: 93970; 99284; A9270

== ENCOUNTER 2024-09-14 22:31 | Emergency (ER) | payer MEDICARE, MEDICAID, SELFPAY ==
[2024-09-14 22:41] VITALS: BP 181/93; PULSE 67; RESP 18; TEMP 36.7; O2SAT 97; BMI 25.2
--- NOTE | 2024-09-14 23:01 | PD.EDADULT ---
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 Patient reports that she is pending an outpatient procedure with her vascular surgeon which was delayed due to lapse in insurance. She denies change in her symptoms, fever, chills, chest pain, shortness of breath, hemoptysis, neck pain, weakness, tingling, numbness. Patient reports taking ibuprofen at approximately 0900 today. Onset (ago): month(s) Quality: sharp Related Data Previous Rx's ?Medication ?Instructions ?Recorded cephalexin 500 mg capsule 500 mg PO BID #10 caps 01/18/23 ibuprofen 800 mg tablet 800 mg PO TID PRN pain #30 tabs 09/12/23 tramadol 50 mg tablet 50 mg PO BID PRN pain #4 tabs 01/18/24 diphenhydramine HCl 50 mg capsule 50 mg PO BID #10 caps 02/15/24 dexamethasone 6 mg tablet 6 mg PO BID #14 tabs 04/10/24 tramadol 50 mg tablet 50 mg PO TID PRN pain #20 tabs 04/10/24 acetaminophen 300 mg-codeine 30 mg 1 tab PO TID PRN pain #20 tabs 05/22/24 tablet meloxicam 15 mg tablet 15 mg PO QDAY #20 tabs 07/09/24 acetaminophen 300 mg-codeine 30 mg 2 tab PO Q8H PRN pain #20 tabs 09/11/24 tablet clonidine HCl 0.1 mg tablet 0.1 mg PO BID #60 tabs 09/11/24 Allergies Allergy/AdvReac Type Severity Reaction Status Date / Time metronidazole Allergy Severe RASH Verified 09/14/24 22:32 povidone-iodine Allergy Severe RASH, Verified 09/14/24 22:32 SWELLING Review of Systems Constitutional Constitutional: Denies body ache(s), Denies chills, Denies night sweats and Denies weakness Eyes Eyes: Denies change in vision ENT Ears, Nose, Mouth, and Throat: Denies dizziness Cardiovascular Cardiovascular: Denies chest pain, Denies dyspnea, Denies edema and Denies irregular heart rhythm Respiratory Respiratory: Denies cough, Denies dyspnea, Denies hemoptysis, Denies pain with cough and Denies wheezing Gastrointestinal Gastrointestinal: Denies abdominal pain, Denies nausea and Denies vomiting Genitourinary Genitourinary: Denies dysuria Musculoskeletal Musculoskeletal: Denies abnormal gait, Denies muscle weakness, Denies numbness and Denies tingling Integumentary/Breasts Skin/Breast: Denies changing lesions, Denies rash and Denies skin pain Neurologic Neurologic: Denies abnormal gait, Denies dizziness, Denies numbness, Denies tingling and Denies weakness Allergic/Immunologic Allergic/Immunologic: Denies wheezing Past Medical History Past Medical History NEUROLOGIC: Negative Neurological Disorders CARDIAC: Positive Deep Vein Thrombosis; Negative Cardiac Disorders, Congestive Heart Failure or Hypertension RESPIRATORY: Positive Chronic Obstructive Pulmonary Disease (COPD) and Asthma GASTROINTESTINAL: Positive Gastrointestinal Disorders and Gall Bladder Disease GENITOURINARY: Negative Renal Disease MUSCULOSKELETAL: Positive Musculoskeletal Disorders and Arthritis ENDOCRINE: Negative Diabetes Mellitus Type 1 or Diabetes Mellitus Type 2 HEMATOLOGIC: Negative Sickle Cell Disease OTHER HISTORY: Negative Cancer Surgical History SURGICAL: Negative Cardiac Surgery Social History SMOKING STATUS: Never smoker 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) ED Exam General Limitations: Present no limitations General appearance: Present alert and in no apparent distress Head Head exam: Present atraumatic and normocephalic Eye Eye exam: Present normal appearance, PERRL and EOMI; Absent scleral icterus ENT ENT exam: Present normal exam, normal oropharynx and mucous membranes moist Neck Neck exam: Present normal inspection and full ROM Chest Chest inspection: Present normal inspection and symmetric chest wall rise; Absent tenderness Respiratory Respiratory exam: Present normal lung sounds bilaterally; Absent respiratory distress or wheezes Cardiovascular Cardiovascular exam: Present regular rate and +S1 Abdominal Exam Abdominal exam: Present soft; Absent distention Extremities Exam Extremities exam: Present normal inspection Back Exam Back exam: Present normal inspection and full ROM Neurological Exam Neurological exam: Present alert, oriented X3 and normal gait Psychiatric Psychiatric exam: Present normal affect Skin Skin exam: Present warm, dry and normal color Course Quality Measures none Orders Category Date Time Status ACETAMINOPHEN w/COD 300-30 [Tylenol w/Cod #3] Med 09/14/24 22:57 Discontinued 1 tab PO X1 ONE Vital Signs Vital signs: Vital Signs Temperature 98.1 F 09/14/24 22:41 Pulse Rate 67 09/14/24 22:41 Respiratory Rate 18 09/14/24 22:41 Blood Pressure 181/93 H 09/14/24 22:41 Pulse Oximetry (%) 97 09/14/24 22:41 Oxygen Delivery Method Room Air 09/14/24 22:41 Pulse ox 97% on room air, within normal limits. MDM Patient data External records reviewed:: [facility] previous records Clinical information provided by:: patient Social determinants that could affect healthcare access:: other (specify) Patient has the following chronic illnesses:: Insurance lapse, substance misuse. How is presenting disease/condition affected by chronic disease/condition?: caused by Evaluation data The following diagnostics were reviewed and interpreted by me:: other (specify) Lab and/or radiology exams considered but not ordered:: Considered not ordered. Interpretation Summary: Considered not ordered. Medications Medications considered but not ordered:: Rx given. Medication administrations:: Medication Administration History Discontinued Medications Acetaminophen/Codeine Phosphate (Acetaminophen W/Cod 300-30 Tablet) 1 tab PO X1 ONE Stop: 09/14/24 22:58 Last Admin: 09/14/24 23:06 Dose: 1 tab Documented By: PINOR Rx given. Consultations Consultation(s) initiated? (list below): No Diagnosis Differential Diagnosis ED Complaint MDM: Chronic pain, upper extremity DVT, ACS, drug-seeking behavior. Most likely diagnosis given after review of the tests above:: Chronic left arm pain. Admission Indicated Admission indicated?: not indicated Explain why admission is indicated or not indicated:: Patient vital signs stable and presenting with a known chronic DVT for which she is currently on Eliquis. Patient reports compliance with Eliquis at home. Patient has outpatient follow-up and is pending a surgical intervention when her insurance restarts. Stable for outpatient follow-up. Admission Request Was there a request for admission?: No Disposition Plan Disposition Plan: Discharge Discharge Attestation Discharge Attestation: The patient and all family members were given an opportunity to ask questions and understood the discharge instructions. Discharge instructions specifically effects, indications for sooner follow up or return to the emergency department, and the expected course of current diagnosis. Patient condition: Stable Medical Decision Making MDM Narrative MDM Narrative: 64-year-old female presented with chronic left upper extremity pain in the setting of known left IJ DVT. Patient reports compliance with her Eliquis. Vital signs stable. Unremarkable physical exam. Patient denied chest pain and neck pain therefore less concerned for dissection at this time. Considered imaging however given patient presentation and stable vital signs deferred. Medical record review shows that she has a Tylenol No. 3 prescription pending, and when I discussed this with the patient she said she was waiting for delivery of her prescription. I advised her to take Tylenol and ibuprofen every 6 hours until her Tylenol 3 prescription is delivered. Patient was amenable with this plan and was grateful for the time spent discussing her current presentation. Ultimately patient was discharged with plan to continue follow-up outpatient. Differential Diagnosis Differential Diagnosis: Chronic pain, upper extremity DVT, ACS, drug-seeking behavior. Discharge Plan Plan Patient Disposition: HOME (Self Care) Disposition Comment: stable Prescriptions/Referrals Prescriptions/Med Rec: No Action cephalexin 500 mg capsule 500 mg PO BID Qty: 10 0RF ibuprofen 800 mg tablet 800 mg PO TID PRN (Reason: pain) Qty: 30 0RF tramadol 50 mg tablet 50 mg PO BID PRN (Reason: pain) Qty: 4 0RF acetaminophen-codeine 300-30 mg tablet 1 tab PO TID PRN (Reason: pain) Qty: 20 0RF acetaminophen-codeine 300-30 mg tablet 2 tab PO Q8H MDD 6 PRN (Reason: pain) Qty: 20 0RF clonidine HCl 0.1 mg tablet 0.1 mg PO BID Qty: 60 0RF diphenhydramine HCl 50 mg capsule 50 mg PO BID Qty: 10 0RF dexamethasone 6 mg tablet 6 mg PO BID Qty: 14 0RF tramadol 50 mg tablet 50 mg PO TID PRN (Reason: pain) Qty: 20 0RF meloxicam 15 mg tablet 15 mg PO QDAY Qty: 20 0RF Problem List Clinical Impression: Chronic pain of left upper extremity Patient/Caregiver Discharge Instructions Other Activity Instructions:: Continue to take Eliquis as prescribed. Fill Tylenol No. 3 prescription and take as needed for pain not exceeding the maximum daily dose. You may take ibuprofen as needed for pain but do not exceed the maximum daily dose. Follow-up with primary care as planned tomorrow and ask about plan for vascular surgery. Return to the ED if your symptoms worsen or change. Education Materials: ED Chronic Pain Print Language: Irish Stand Alone Forms: [employer] Info., Patient Portal Info Letter PA/PLASTIC PARTS DESIGNER Supervising Physician PA/PLASTIC PARTS DESIGNER Supervising Physician: Dr. Belle
[2024-09-14] MEDS: ACETAMINOPHEN w/COD 300-30 TABLET 1 TAB PO (23:06)
[2024-09-15 00:04] VITALS: RESP 18
== END 2024-09-15 00:06 | disposition home or self-care (01) ==
LOC: SERX 23:11
PROVIDERS: Emergency Provider Emergency Medicine
DX: M79.602 Pain in left arm (principal); G89.29 Other chronic pain
CPT/HCPCS: 99282; A9270

== ENCOUNTER 2024-10-04 18:29 | Emergency (ER) | payer MEDICARE, MEDICAID, SELFPAY ==
[2024-10-04 18:30] VITALS: BMI 24.5
[2024-10-04 18:52] VITALS: BP 142/80; PULSE 78; RESP 20; TEMP 37.9; O2SAT 95
--- NOTE | 2024-10-04 18:56 | XR_ITS ---
Examination: CT brain head without contrast. 2-D sagittal coronal reconstructions Date and time of exam:October 04, 2024 at 1904 hours INDICATIONS: Severe head pain today CTDI: vol (mGy):47.2 DLP: (mGycm):1011 Technique: Multiple CT axial sections of the brain have been obtained, 5 mm slice thickness. Contrast has not been administered. 2-D sagittal, coronal reconstructions have been obtained Low dose protocols were performed. One or more of the following dose reduction techniques were used; automated exposure control, adjustment of the mA and/or KV according to patient size, use of iterative reconstruction technique. Findings: No significant ventricular enlargement. Intra-axial or extra-axial hemorrhage density is not seen. No mass effect or midline shift Basal cisterns are not remarkable. Fourth ventricle is midline. Cranial vault intact. Impression: Negative for acute hemorrhage, mass effect or midline shift
--- NOTE | 2024-10-04 19:01 | PD.EDRME ---
Rapid Medical Screening Exam RME Arrival date/time: 10/04/24 18:29 64 yo f present to ED for c/o of headache, diarrhea, vomiting I have greeted and performed a focused initial assessment of this patient. A comprehensive ED assessment and evaluation of the patient, analysis of all test results, and completion of the medical decision making process will be conducted by additional ED providers. Chief Complaint: Headache Time Seen by Provider: 10/04/24 18:36 Vital signs: Vital Signs Temperature 100.2 F 10/04/24 18:52 Pulse Rate 78 10/04/24 18:52 Respiratory Rate 20 10/04/24 18:52 Blood Pressure 142/80 H 10/04/24 18:52 Pulse Oximetry (%) 95 10/04/24 18:52 Oxygen Delivery Method Room Air 10/04/24 18:52
[2024-10-04 19:23] LABS: Basophils % (Auto) 0 % (0-2.5); Eosinophils % (Auto) 0 % (0-10); Hematocrit 44.2 % (36.0-46.0); Hemoglobin 14.9 g/dL (12.0-16.0); Immature Granulocytes % (Auto) 0 % (0-0); Immature Granulocytes Auto 0.03 Thou/mm3 (0.00-0.00); Lymphocytes # (Auto) 0.5 Thou/mm3 (1.0-4.8); Lymphocytes % (Auto) 7 % (10-50); Mean Corpuscular HGB Conc 33.7 g/dl (31.0-37.0); Mean Corpuscular Hemoglobin 30.7 pg (25.0-35.0); Mean Corpuscular Volume 91 fL (80-100); Monocytes # (Auto) 0.4 Thou/mm3 (0.0-0.8); Monocytes % (Auto) 6 % (0-12); Neutrophils # (Auto) 5.8 Thou/mm3 (1.8-7.7); Neutrophils % (Auto) 86 % (37-80); Nucleated Red Blood Cell % 0 /100 WBC (0); Platelet Count 186 Thou/mm3 (140-440); Red Blood Count 4.86 Miln/mm3 (4.00-5.20); White Blood Count 6.8 Thou/mm3 (3.6-11.0)
[2024-10-04] MEDS: ONDANSETRON ODT 4 MG TABRAP PO (19:24)
[2024-10-04] MEDS: ACETAMINOPHEN 500 MG TABLET 1000 MG PO (19:24)
[2024-10-04 19:54] LABS: Sed Rate (ESR) 34 mm/hr (0-30)
[2024-10-04 20:20] LABS: Alanine Aminotransferase 8 U/L (10-49); Albumin, Serum 4.2 gm/dL (3.4-4.8); Albumin/Globulin Ratio 1.4 (1.2-2.2); Alkaline Phosphatase 82 U/L (46-116); Anion Gap 7 (7-16); Aspartate Amino Transferase 15 U/L (0-34); BUN/Creatinine Ratio 9 Ratio (12-20); Bilirubin,Total 0.9 mg/dL (0.3-1.2); Blood Urea Nitrogen 12 mg/dL (9-23); C-Reactive Protein 5.2 mg/dL (0.0-0.9); Calcium 9.2 mg/dL (8.3-10.6); Calcium (Corrected) 9.2 mg/dL (8.5-10.1); Carbon Dioxide 26.6 mMol/L (20.0-31.0); Chloride 103 mMol/L (98-107); Creatinine (Component) 1.3 mg/dL (0.6-1.3); Estimated Creatinine Clearance 37.3 mL/min (>60); Globulin 2.9 gm/dL (2.3-3.5); Glucose 123 mg/dL (74-106); Osmolality,Calculated 274 (275-295); Potassium 3.5 mMol/L (3.4-5.1); Sodium 137 mMol/L (136-145); Total Protein 7.1 gm/dL (5.7-8.2); Troponin I < 0.020 ng/mL (0.0-0.045); eGFR 46 See Note
--- NOTE | 2024-10-04 22:06 | PRELIM_ITS ---
CT scan of the head without intravenous contrast (axial sections with sagittal and coronal reformats) October 04, 2024 1904 hours Clinical History: Headache Comparison: No prior study is available for comparison. Findings: There is no evidence of intracranial hemorrhage, mass effect or midline shift. There is mild volume loss. The calvarium is unremarkable. The mastoid air cells and the visualized paranasal sinuses are clear. Impression: No evidence of intracranial hemorrhage, mass effect or midline shift. Mild volume loss. Report Electronically Signed By: Checo Shah 10/04/2024 10:05:19 PM [EST]
--- NOTE | 2024-10-04 22:52 | PC.NURSE ---
Radiology called patient. no answer x 1 at 2250. checked outside and lobby.
--- NOTE | 2024-10-04 23:38 | PC.NURSE ---
[facility] CALLED PT AND THEY DID NOT ANSWER.
--- NOTE | 2024-10-04 23:41 | PC.NURSE ---
NO ANSWER FOR MAIN ED
== END 2024-10-04 23:44 | disposition left against medical advice (07) ==
LOC: SERX 19:15
PROVIDERS: Physician Assistant; Emergency Provider Emergency Medicine; PCP Student in an Organized Health Care Education/Training Program
DX: R51.9 Headache, unspecified (principal); R19.7 Diarrhea, unspecified; R11.10 Vomiting, unspecified; Z53.29 Procedure and treatment not carried out because of patient's decision for other reasons
CPT/HCPCS: 36415; 70450; 80053; 84484; 85025; 85652; 86140; 99281; Q0162; A9270

== ENCOUNTER 2024-11-05 08:25 | Emergency (ER) | payer MEDICARE, MEDICAID, SELFPAY ==
[2024-11-05 08:25] VITALS: BMI 24.9
[2024-11-05 08:35] VITALS: BP 130/83; PULSE 64; RESP 18; TEMP 36.4; O2SAT 97
--- NOTE | 2024-11-05 08:40 | XR_ITS ---
Examination: Cervical spine 4 views TECHNIQUE: AP, lateral, swimmer's lateral, coned AP odontoid cervical spine 4 views Date and time: November 05, 2024 0848 hours INDICATIONS: Neck pain this week. FINDINGS: Straightening normal cervical lordosis. No cervical fracture. Moderate to advanced degenerative disc disease C5-C6, C6-C7 Prominent cervical spondylosis IMPRESSION: Moderate to advanced degenerative disc disease C5-C6, C6-C7
--- NOTE | 2024-11-05 08:40 | EDNOTE_ITS ---
<Statement entered by Stephanie Ward MD - 11/05/24 10:57> As co-signing physician, I was present and available for consult prn. I concur with the plan and care as documented by the midlevel provider. ED Neck Injury Pain RME/HPI General Chief Complaint: Extremity Problem,Nontraumatic Stated Complaint: UPPER NECK/BACK/RIGHT ARM PAIN Time Seen by Provider: 11/05/24 08:43 Source: patient Arrival date/time: 11/05/24 08:25 64-year-old female with no known medical history presents to the emergency room with a chief complaint of upper back and neck pain x 1 month Mode of arrival: ambulatory Limitations: no limitations Related Data Previous Rx's ?Medication ?Instructions ?Recorded cephalexin 500 mg capsule 500 mg PO BID #10 caps 01/18 ibuprofen 800 mg tablet 800 mg PO TID PRN pain #30 t abs 09/12/23 tramadol 50 mg tablet 50 mg PO BID PRN pain #4 tab s 01/18/24 diphenhydramine HCl 50 mg capsule 50 mg PO BID #10 cap s 02/15/24 dexamethasone 6 mg tablet 6 mg PO BID #14 tabs 04/10/ 4 tramadol 50 mg tablet 50 mg PO TID PRN pain #20 ta bs 04/10/24 acetaminophen 300 mg-codeine 30 mg 1 tab PO TID PRN pa in #20 tabs 05/22/24 tablet meloxicam 15 mg tablet 15 mg PO QDAY #20 tabs 07/09 acetaminophen 300 mg-codeine 30 mg 2 tab PO Q8H PRN pa in #20 tabs 09/11/24 tablet clonidine HCl 0.1 mg tablet 0.1 mg PO BID #60 tabs Allergies Allergy/AdvReac Type Severity Reaction Status Date / Time metronidazole Allergy Severe RASH Verified 11/05/24 08:28 povidone-iodine Allergy Severe RASH, Verified 11/05/24 08:28 SWELLING Review of Systems Review of Systems Systems Reviewed: All systems reviewed, normal except as documented Constitutional Constitutional: Reports system reviewed and no additional complaints, except as documented, Denies fatigue, Denies fever(s), Denies headache(s) and Denies weakness Eyes Eyes: Reports system reviewed and no additional complaints, except as documented, Denies blurry vision and Denies change in vision ENT Ears, Nose, Mouth, and Throat: Reports system reviewed and no additional complaints, except as documented, Denies otalgia, Denies headache(s), Denies nasal congestion, Denies throat swelling and Denies vertigo Cardiovascular Cardiovascular: Reports system reviewed and no additional complaints, except as documented, Denies chest pain, Denies dyspnea and Denies dyspnea on exertion Respiratory Respiratory: Reports system reviewed and no additional complaints, except as documented, Denies chest congestion, Denies cough, Denies dyspnea, Denies dyspnea on exertion and Denies wheezing Gastrointestinal Gastrointestinal: Reports system reviewed and no additional complaints, except as documented, Denies abdominal pain, Denies cramping, Denies nausea and Denies vomiting Genitourinary Genitourinary: Reports system reviewed and no additional complaints, except as documented Musculoskeletal Musculoskeletal: Reports system reviewed and no additional complaints, except as documented, Reports arthralgias and Denies back pain Integumentary/Breasts Skin/Breast: Reports system reviewed and no additional complaints, except as documented and Denies wounds Neurologic Neurologic: Reports system reviewed and no additional complaints, except as documented, Denies confusion, Denies headache(s), Denies lack of coordination, Denies vertigo and Denies weakness Psychiatric Psychiatric: Reports system reviewed and no additional complaints, except as documented, Denies anxiety, Denies confusion, Denies depression, Denies paranoia, Denies suicidal ideation and Denies tactile hallucinations Endocrine Endocrine: Reports system reviewed and no additional complaints, except as documented and Denies fatigue Hematologic/Lymphatic Hematologic/Lymphatic: Reports system reviewed and no additional complaints, except as documented and Denies lymphadenopathy Allergic/Immunologic Allergic/Immunologic: Reports system reviewed and no additional complaints, exce pt as documented, Denies throat swelling, Denies urticaria and Denies wheezing ED Exam General Limitations: Present no limitations General appearance: Present alert and in no apparent distress Head Head exam: Present atraumatic, normocephalic and normal inspection Eye Eye exam: Present normal appearance, PERRL and EOMI ENT ENT exam: Present normal exam, normal oropharynx and mucous membranes moist Neck Neck exam: Present normal inspection, full ROM, trachea midline and tenderness; Absent meningismus, lymphadenopathy or thyromegaly Expanded Neck Exam Neck exam focused ED: Present midline tenderness; Absent paraspinal tenderness, tenderness (other), tracheal deviation, anterior neck swelling, thyroid enlargement, JVD or carotid bruit Chest Chest inspection: Present normal inspection and symmetric chest wall rise Respiratory Respiratory exam: Present normal lung sounds bilaterally Cardiovascular Cardiovascular exam: Present regular rate, normal rhythm and normal heart sounds Abdominal Exam Abdominal exam: Present soft and normal bowel sounds Extremities Exam Extremities exam: Present normal inspection and full ROM Back Exam Back exam: Present normal inspection and full ROM Neurological Exam Neurological exam: Present alert, oriented X3 and CN II-XII intact Psychiatric Psychiatric exam: Present normal affect and normal mood Skin Skin exam: Present warm, dry, intact and normal color Course Quality Measures none Orders Category Date Time Status XR cervical spine 2-3V Stat Exams 11/05/24 08:40 Completed Ketorolac Inj [Toradol Inj] Med 11/05/24 08:40 Discontinued 30 mg IM X1 ONE Vital Signs Vital signs: Vital Signs Temperature 97.6 F 11/05/24 08:35 Pulse Rate 64 11/05/24 08:35 Respiratory Rate 18 11/05/24 08:35 Blood Pressure 130/83 11/05/24 08:35 Pulse Oximetry (%) 97 11/05/24 08:35 Oxygen Delivery Method Room Air 11/05/24 08:35 O2 saturation 97% within normal limits Neck Pain MDM Narrative MDM Narrative:: 64-year-old female with no known medical history presents to the emergency room with a chief complaint of upper back and neck pain x 1 month Patient is hemodynamically stable and in no apparent distress Physical examination shows tenderness with palpation of her cervical neck area patient states that radiates down to her upper back. Patient states this pain has been going on for 1 month. Patient has an outpatient plan with her primary care provider and has a referral to a thoracic medicine specialist later this month. X-ray of the cervical spine was completed and was negative for any acute fracture or dislocation. The x-ray did show some degenerative disc disease of the cervical spine. Patient was discharged and educated to follow-up with primary care provider in the next 24 to 48 hours and return to the emergency room for any evidence of worsening signs or symptoms Patient data External records reviewed:: [facility] previous records Clinical information provided by:: patient Social determinants that could affect healthcare access:: none Patient has the following chronic illnesses:: No chronic illness How is presenting disease/condition affected by chronic disease/condition?: no chronic disease Evaluation data The following diagnostics were reviewed and interpreted by me:: lab results and radiology exam(s) Lab and/or radiology exams considered but not ordered:: Labs and radiology exams considered and ordered Interpretation Summary: Cervical spine [id number]: Straightening normal cervical lordosis. No cervical fracture. Moderate to advanced degenerative disc disease C5-C6, C6-C7 Prominent cervical spondylosis IMPRESSION: Moderate to advanced degenerative disc disease C5-C6, C6-C7 Medications / Prescriptions Medications or Prescriptions considered but not ordered:: Medication given Medication administrations:: Medication Administration History Discontinued Medications Ketorolac Tromethamine (Ketorolac Inj 60 Mg/2 Ml Vial) 30 mg IM X1 ONE Stop: 11/05/24 08:41 Last Admin: 11/05/24 09:00 Dose: 30 mg Documented By: Medication given Consultations Consultation(s) initiated? (list below): No Diagnosis Neck Differential Diagnosis: disc disorder of cervical region, torticollis, strain of neck muscle and other Most likely diagnosis given after review of the tests above:: Degenerative disc disease Admission Indicated Admission indicated?: not indicated Admission Request Was there a request for admission?: No Disposition Plan Disposition Plan: Discharge Discharge Attestation Discharge Attestation: The patient and all family members were given an opportunity to ask questions and understood the discharge instructions. Discharge instructions specifically effects, indications for sooner follow up or return to the emergency department, and the expected course of current diagnosis. Patient condition: Stable Discharge Plan Plan Patient Disposition: HOME (Self Care) Discharge Disposition comment: Stable Prescriptions/Referrals Prescriptions/Med Rec: No Action cephalexin 500 mg capsule 500 mg PO BID Qty: 10 0RF ibuprofen 800 mg tablet 800 mg PO TID PRN (Reason: pain) Qty: 30 0RF tramadol 50 mg tablet 50 mg PO BID PRN (Reason: pain) Qty: 4 0RF acetaminophen-codeine 300-30 mg tablet 1 tab PO TID PRN (Reason: pain) Qty: 20 0RF acetaminophen-codeine 300-30 mg tablet 2 tab PO Q8H MDD 6 PRN (Reason: pain) Qty: 20 0RF clonidine HCl 0.1 mg tablet 0.1 mg PO BID Qty: 60 0RF diphenhydramine HCl 50 mg capsule 50 mg PO BID Qty: 10 0RF dexamethasone 6 mg tablet 6 mg PO BID Qty: 14 0RF tramadol 50 mg tablet 50 mg PO TID PRN (Reason: pain) Qty: 20 0RF meloxicam 15 mg tablet 15 mg PO QDAY Qty: 20 0RF Referrals: No Primary/Family,Physician [Primary Care Provider] - In 1 week Problem List Clinical Impression: Degenerative disc disease Patient/Caregiver Discharge Instructions Education Materials: ED Degenerative Disk Disease Additional Instructions: Please follow-up with your primary care provider in the next 24 to 48 hours. X-rays were completed and were negative for any acute fracture or dislocation and showed degenerative disc disease. This is the breaking down of the cartilage in between your vertebrae. Please follow-up with your primary care provider for further management. For any evidence of worsening signs or symptoms return to the emergency room immediately Print Language: Arabic Stand Alone Forms: Sabrina Award Info., Patient Portal Info Letter PA/ASSET MANAGER Supervising Physician ELAN/GABRIELA Supervising Physician: Dr. WARD
[2024-11-05] MEDS: KETOROLAC INJ 60 MG/2 ML VIAL 30 MG IM (09:00)
== END 2024-11-05 09:29 | disposition home or self-care (01) ==
PROVIDERS: Emergency Provider Emergency Medicine
DX: M50.322 Other cervical disc degeneration at C5-C6 level (principal); M47.812 Spondylosis without myelopathy or radiculopathy, cervical region
CPT/HCPCS: 72040; 96372; 99283; J1885

== ENCOUNTER 2024-11-27 13:17 | Emergency (ER) | payer MEDICARE, MEDICAID, SELFPAY ==
[2024-11-27 13:17] VITALS: BMI 24.5
[2024-11-27 13:56] VITALS: BP 150/89; PULSE 84; RESP 20; TEMP 37.1; O2SAT 96
--- NOTE | 2024-11-27 14:02 | XR_ITS ---
Examination: PA lateral chest 2 views TECHNIQUE: Upright PA lateral chest 2 views Date and time: November 27, 2024 1416 hours INDICATIONS: Difficulty breathing one week. FINDINGS: Normal heart size. No pneumonia or pulmonary edema Moderate thoracic spondylosis IMPRESSION: No pneumonia or pulmonary edema
--- NOTE | 2024-11-27 14:03 | PD.EDCHEST ---
ED Chest Pain RME/HPI General Chief Complaint: Chest Pain Stated Complaint: LUNGS HURT Time Seen by Provider: 11/27/24 17:10 Source: patient Arrival date/time: 11/27/24 13:17 64-year-old female with no known medical history presents to the emergency room with a chief complaint of cough, phlegm, difficulty breathing x 1 week Mode of arrival: ambulatory Limitations: no limitations Related Data Previous Rx's ?Medication ?Instructions ?Recorded cephalexin 500 mg capsule 500 mg PO BID #10 caps 01/18/23 ibuprofen 800 mg tablet 800 mg PO TID PRN pain #30 tabs 09/12/23 tramadol 50 mg tablet 50 mg PO BID PRN pain #4 tabs 01/18/24 diphenhydramine HCl 50 mg capsule 50 mg PO BID #10 caps 02/15/24 dexamethasone 6 mg tablet 6 mg PO BID #14 tabs 04/10/24 tramadol 50 mg tablet 50 mg PO TID PRN pain #20 tabs 04/10/24 acetaminophen 300 mg-codeine 30 mg 1 tab PO TID PRN pain #20 tabs 05/22/24 tablet meloxicam 15 mg tablet 15 mg PO QDAY #20 tabs 07/09/24 acetaminophen 300 mg-codeine 30 mg 2 tab PO Q8H PRN pain #20 tabs 09/11/24 tablet clonidine HCl 0.1 mg tablet 0.1 mg PO BID #60 tabs 09/11/24 Allergies Allergy/AdvReac Type Severity Reaction Status Date / Time metronidazole Allergy Severe RASH Verified 11/27/24 13:19 povidone-iodine Allergy Severe RASH, Verified 11/27/24 13:19 SWELLING Review of Systems Review of Systems Systems Reviewed: All systems reviewed, normal except as documented Constitutional Constitutional: Reports system reviewed and no additional complaints, except as documented, Denies fatigue, Denies fever(s), Denies headache(s) and Denies weakness Eyes Eyes: Reports system reviewed and no additional complaints, except as documented, Denies blurry vision and Denies change in vision ENT Ears, Nose, Mouth, and Throat: Reports system reviewed and no additional complaints, except as documented, Denies otalgia, Denies headache(s), Denies nasal congestion, Denies throat swelling and Denies vertigo Cardiovascular Cardiovascular: Reports system reviewed and no additional complaints, except as documented, Denies chest pain, Reports dyspnea and Denies dyspnea on exertion Respiratory Respiratory: Reports system reviewed and no additional complaints, except as documented, Reports chest congestion, Reports cough, Reports dyspnea, Denies dyspnea on exertion and Denies wheezing Gastrointestinal Gastrointestinal: Reports system reviewed and no additional complaints, except as documented, Denies abdominal pain, Denies cramping, Denies nausea and Denies vomiting Genitourinary Genitourinary: Reports system reviewed and no additional complaints, except as documented Musculoskeletal Musculoskeletal: Reports system reviewed and no additional complaints, except as documented and Denies back pain Integumentary/Breasts Skin/Breast: Reports system reviewed and no additional complaints, except as documented and Denies wounds Neurologic Neurologic: Reports system reviewed and no additional complaints, except as documented, Denies confusion, Denies headache(s), Denies lack of coordination, Denies vertigo and Denies weakness Psychiatric Psychiatric: Reports system reviewed and no additional complaints, except as documented, Denies anxiety, Denies confusion, Denies depression, Denies paranoia, Denies suicidal ideation and Denies tactile hallucinations Endocrine Endocrine: Reports system reviewed and no additional complaints, except as documented and Denies fatigue Hematologic/Lymphatic Hematologic/Lymphatic: Reports system reviewed and no additional complaints, except as documented and Denies lymphadenopathy Allergic/Immunologic Allergic/Immunologic: Reports system reviewed and no additional complaints, except as documented, Denies throat swelling, Denies urticaria and Denies wheezing Past Medical History Past Medical History NEUROLOGIC: Negative Neurological Disorders CARDIAC: Positive Deep Vein Thrombosis; Negative Cardiac Disorders, Congestive Heart Failure or Hypertension RESPIRATORY: Positive Chronic Obstructive Pulmonary Disease (COPD) and Asthma GASTROINTESTINAL: Positive Gastrointestinal Disorders and Gall Bladder Disease GENITOURINARY: Negative Renal Disease MUSCULOSKELETAL: Positive Musculoskeletal Disorders and Arthritis ENDOCRINE: Negative Diabetes Mellitus Type 1 or Diabetes Mellitus Type 2 HEMATOLOGIC: Negative Sickle Cell Disease OTHER HISTORY: Negative Cancer Surgical History SURGICAL: Negative Cardiac Surgery Social History SMOKING STATUS: Current every day smoker 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) ED Exam General Limitations: Present no limitations General appearance: Present alert and in no apparent distress Head Head exam: Present atraumatic Eye Eye exam: Present normal appearance, PERRL and EOMI ENT ENT exam: Present normal exam, normal oropharynx and mucous membranes moist Neck Neck exam: Present normal inspection, full ROM and trachea midline Chest Chest inspection: Present normal inspection and symmetric chest wall rise Respiratory Respiratory exam: Present normal lung sounds bilaterally; Absent respiratory distress, wheezes, stridor, accessory muscle use or prolonged expiratory phase Cardiovascular Cardiovascular exam: Present regular rate, normal rhythm and normal heart sounds Abdominal Exam Abdominal exam: Present soft and normal bowel sounds Extremities Exam Extremities exam: Present normal inspection and full ROM Back Exam Back exam: Present normal inspection and full ROM Neurological Exam Neurological exam: Present alert, oriented X3 and CN II-XII intact Psychiatric Psychiatric exam: Present normal affect and normal mood Skin Skin exam: Present warm, dry, intact and normal color Course Quality Measures none Orders Category Date Time Status Bedside COVID-19 Antigen Test NOW Care 11/27/24 14:02 Completed Bedside Influenza A&B Antigen Test NOW Care 11/27/24 14:02 Completed XR chest 2V Stat Exams 11/27/24 14:02 Completed Dexamethasone Inj [Decadron Inj] Med 11/27/24 14:02 Discontinued 10 mg PO X1 ONE Vital Signs Vital signs: Vital Signs Temperature 98.7 F 11/27/24 13:56 Pulse Rate 84 11/27/24 13:56 Respiratory Rate 20 11/27/24 13:56 Blood Pressure 150/89 H 11/27/24 13:56 Pulse Oximetry (%) 96 11/27/24 13:56 Oxygen Delivery Method Room Air 11/27/24 13:56 O2 saturation 96% within normal limits Chest Pain MDM Narrative MDM Narrative:: 64-year-old female with no known medical history presents to the emergency room with a chief complaint of cough, phlegm, difficulty breathing x 1 week Patient is hemodynamically stable and in no apparent distress Physical examination shows clear bilateral lung sounds with no wheezing stridor or any abnormal breath sounds Patient is afebrile not tachycardic not tachypneic and O2 saturation to 99% on room air Chest x-ray was negative for any acute findings or any pneumonic infiltrates. Patient was discharged and educated to follow-up with primary care provider in the next 24 to 48 hours and return to the emergency room for any evidence of worsening signs or symptoms Patient data External records reviewed:: [facility] previous records Clinical information provided by:: patient Social determinants that could affect healthcare access:: none Patient has the following chronic illnesses:: No chronic illness How is presenting disease/condition affected by chronic disease/condition?: no chronic disease Evaluation data The following diagnostics were reviewed and interpreted by me:: lab results and radiology exam(s) Lab and/or radiology exams considered but not ordered:: Labs and radiology exams considered and ordered Interpretation Summary: Chest [id number]: Normal heart size. No pneumonia or pulmonary edema Moderate thoracic spondylosis IMPRESSION: No pneumonia or pulmonary edema Medications / Prescriptions Medications or Prescriptions considered but not ordered:: Medication given Medication administrations:: Medication Administration History Discontinued Medications Dexamethasone Sodium Phosphate (Dexamethasone Sod Phos Inj 10 Mg/Ml Vial) 10 mg PO X1 ONE Stop: 11/27/24 14:03 Last Admin: 11/27/24 14:35 Dose: 10 mg Documented By: OA Comments: given po Medication given Consultations Consultation(s) initiated? (list below): No Diagnosis Chest Pain Differential Diagnosis: costochondritis, chest pain and other (Community-acquired pneumonia/upper respiratory infection) Most likely diagnosis given after review of the tests above:: Upper respiratory infection Admission Indicated Admission indicated?: not indicated Admission Request Was there a request for admission?: No Disposition Plan Disposition Plan: Discharge Discharge Attestation Discharge Attestation: The patient and all family members were given an opportunity to ask questions and understood the discharge instructions. Discharge instructions specifically effects, indications for sooner follow up or return to the emergency department, and the expected course of current diagnosis. Patient condition: Stable Discharge Plan Plan Patient Disposition: HOME (Self Care) Discharge Disposition comment: Stable Prescriptions/Referrals Prescriptions/Med Rec: No Action cephalexin 500 mg capsule 500 mg PO BID Qty: 10 0RF ibuprofen 800 mg tablet 800 mg PO TID PRN (Reason: pain) Qty: 30 0RF tramadol 50 mg tablet 50 mg PO BID PRN (Reason: pain) Qty: 4 0RF acetaminophen-codeine 300-30 mg tablet 1 tab PO TID PRN (Reason: pain) Qty: 20 0RF acetaminophen-codeine 300-30 mg tablet 2 tab PO Q8H MDD 6 PRN (Reason: pain) Qty: 20 0RF clonidine HCl 0.1 mg tablet 0.1 mg PO BID Qty: 60 0RF diphenhydramine HCl 50 mg capsule 50 mg PO BID Qty: 10 0RF dexamethasone 6 mg tablet 6 mg PO BID Qty: 14 0RF tramadol 50 mg tablet 50 mg PO TID PRN (Reason: pain) Qty: 20 0RF meloxicam 15 mg tablet 15 mg PO QDAY Qty: 20 0RF Referrals: No Primary/Family,Physician [Primary Care Provider] - In 1 week Problem List Clinical Impression: Upper respiratory infection, viral Patient/Caregiver Discharge Instructions Education Materials: ED URI, Viral, No Abx (Adult) Additional Instructions: Please follow-up with your primary care provider in the next 24 to 48 hours Your x-ray was negative for any pneumonic infiltrates For any evidence of worsening signs or symptoms return to the emergency room immediately Print Language: Kiswahili Stand Alone Forms: Sabrina Award Info., Patient Portal Info Letter PA/ARTS EDUCATION TEACHER Supervising Physician PA/ARTS EDUCATION TEACHER Supervising Physician: Dr. Zavala
[2024-11-27] MEDS: DEXAMETHASONE SOD PHOS INJ 10 MG/ML VIAL PO (14:35)
--- NOTE | 2024-11-27 17:30 | PC.NURSE ---
PT CALLED; NO RESPONSE
[2024-11-27 18:25] VITALS: PULSE 78; O2SAT 99
== END 2024-11-27 18:26 | disposition home or self-care (01) ==
PROVIDERS: Emergency Provider Emergency Medicine
DX: J06.9 Acute upper respiratory infection, unspecified (principal); F17.210 Nicotine dependence, cigarettes, uncomplicated
CPT/HCPCS: 71046; 87400; 87811; 99283; J1100

== ENCOUNTER 2024-11-30 16:19 | Emergency (ER) | payer MEDICARE, MEDICAID, SELFPAY ==
[2024-11-30 16:20] VITALS: BMI 25.7
[2024-11-30 17:02] VITALS: BP 149/71; PULSE 70; RESP 18; TEMP 36.5; O2SAT 97
--- NOTE | 2024-11-30 17:07 | XR_ITS ---
Examination: PA lateral chest 2 views TECHNIQUE: Upright PA and lateral chest 2 views Date and time: November 30, 2024 1718 hours INDICATIONS: Chest pain beginning 4 weeks ago FINDINGS: Pneumonia right base obscuring detail right hemidiaphragm Normal heart size No pulmonary edema IMPRESSION: Right base pneumonia
--- NOTE | 2024-11-30 17:07 | PD.EDRME ---
Rapid Medical Screening Exam RME Arrival date/time: 11/30/24 16:19 64-year-old female with no known medical history presents to the emergency room with a chief complaint of cough, phlegm, congestion x 4 days I have greeted and performed a focused initial assessment of this patient. A comprehensive ED assessment and evaluation of the patient, analysis of all test results, and completion of the medical decision making process will be conducted by additional ED providers. Chief Complaint: Shortness of Breath/Dyspnea Vital signs: Vital Signs Temperature 97.7 F 11/30/24 17:02 Pulse Rate 70 11/30/24 17:02 Respiratory Rate 18 11/30/24 17:02 Blood Pressure 149/71 H 11/30/24 17:02 Pulse Oximetry (%) 97 11/30/24 17:02 Oxygen Delivery Method Room Air 11/30/24 17:02 Vital signs reviewed by provider: Yes
[2024-11-30] MEDS: DEXAMETHASONE SOD PHOS INJ 10 MG/ML VIAL PO (17:31)
[2024-11-30] MEDS: ALBUTEROL/IPRATROPIUM (Duoneb) RT SOL 3 ML NEBU INH ×2 (17:55→21:45)
[2024-11-30 17:56] VITALS: PULSE 66; RESP 18; O2SAT 99
--- NOTE | 2024-11-30 21:28 | PD.EDSOB ---
ED SOB =RME/HPI General Chief Complaint: Shortness of Breath/Dyspnea Stated Complaint: LUNG PAIN x 4 WEEKS Arrival date/time: 11/30/24 16:19 RME / HPI RME / HPI Narrative: 11/30/24 16:19 64-year-old female with no known medical history presents to the emergency room with a chief complaint of cough, phlegm, congestion x 4 days I have greeted and performed a focused initial assessment of this patient. A comprehensive ED assessment and evaluation of the patient, analysis of all test results, and completion of the medical decision making process will be conducted by additional ED providers. -------- Dr. Ward?s Main ED Evaluation: 64yo female with a history of COPD presents to the ED for a chief complaint of lung pain x 4 weeks. Patien endorses having a productive cough with green phlegm, shortness of breath, sweating, and fatigue for the last 4 weeks. Patient has been using her inhaler at home without any improvement, so she came in for evaluation. Patient denies any fever, chills or any other associated symptoms. She is a former tobacco smoker. Related Data Previous Rx's ?Medication ?Instructions ?Recorded cephalexin 500 mg capsule 500 mg PO BID #10 caps 01/18/23 ibuprofen 800 mg tablet 800 mg PO TID PRN pain #30 tabs 09/12/23 tramadol 50 mg tablet 50 mg PO BID PRN pain #4 tabs 01/18/24 diphenhydramine HCl 50 mg capsule 50 mg PO BID #10 caps 02/15/24 dexamethasone 6 mg tablet 6 mg PO BID #14 tabs 04/10/24 tramadol 50 mg tablet 50 mg PO TID PRN pain #20 tabs 04/10/24 acetaminophen 300 mg-codeine 30 mg 1 tab PO TID PRN pain #20 tabs 05/22/24 tablet meloxicam 15 mg tablet 15 mg PO QDAY #20 tabs 07/09/24 acetaminophen 300 mg-codeine 30 mg 2 tab PO Q8H PRN pain #20 tabs 09/11/24 tablet clonidine HCl 0.1 mg tablet 0.1 mg PO BID #60 tabs 09/11/24 doxycycline monohydrate 100 mg 100 mg PO BID #14 caps 11/30/24 capsule Allergies Allergy/AdvReac Type Severity Reaction Status Date / Time metronidazole Allergy Severe RASH Verified 11/30/24 16:22 povidone-iodine Allergy Severe RASH, Verified 11/30/24 16:22 SWELLING Review of Systems Review of Systems Systems Reviewed: All systems reviewed, normal except as documented Past Medical History Past Medical History NEUROLOGIC: Negative Neurological Disorders CARDIAC: Positive Deep Vein Thrombosis; Negative Cardiac Disorders, Congestive Heart Failure or Hypertension RESPIRATORY: Positive Chronic Obstructive Pulmonary Disease (COPD) and Asthma GASTROINTESTINAL: Positive Gastrointestinal Disorders and Gall Bladder Disease GENITOURINARY: Negative Renal Disease MUSCULOSKELETAL: Positive Musculoskeletal Disorders and Arthritis ENDOCRINE: Negative Diabetes Mellitus Type 1 or Diabetes Mellitus Type 2 HEMATOLOGIC: Negative Sickle Cell Disease OTHER HISTORY: Negative Cancer Surgical History SURGICAL: Negative Cardiac Surgery Social History SMOKING STATUS: Current every day smoker 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 HEENT: Normocephalic, atraumatic; pupils equal, round, reactive to light; EOMI; mucous membranes pink, moist; oropharynx clear NECK: Supple LUNGS: mildly decreased air movement at the right base, mild wheezing bilaterally, mild rhonchi at the left base HEART: Regular rate, regular rhythm; normal S1, S2; no murmurs ABDOMEN: non distended; normal BS; soft, no tenderness, no guarding, no rebound; no masses, no organomegaly, no hernia BACK: no CVA tenderness EXTREMITIES: atraumatic; no edema NEUROLOGIC: awake; alert and oriented x4; cranial nerves II-XII grossly intact; no focal sensory or motor deficits PSYCHIATRIC: appropriate mood and affect SKIN: warm, dry, normal color; no rashes Course Course Course Narrative: CXR is ordered for determining the etiology of cough. Quality Measures none Orders Category Date Time Status XR chest 2V Stat Exams 11/30/24 17:07 Completed Albuterol/Ipratr Rt Susu [Duoneb Rt Susu] Med 11/30/24 17:07 Discontinued 3 ml INH X1 ONE Albuterol/Ipratr Rt Susu [Duoneb Rt Susu] Med 11/30/24 21:29 Discontinued 3 ml INH X1 ONE Dexamethasone Inj [Decadron Inj] Med 11/30/24 17:07 Discontinued 10 mg PO X1 ONE Doxycycline [Vibramycin] Med 11/30/24 21:29 Discontinued 100 mg PO X1 ONE HYDROcodone*/APAP 5/325 [[place] 5/325] Med 11/30/24 21:35 Once 1 tab PO X1 ONE Vital Signs Vital signs: Vital Signs Temperature 97.7 F 11/30/24 17:02 Pulse Rate 70 11/30/24 17:02 Respiratory Rate 18 11/30/24 17:02 Blood Pressure 149/71 H 11/30/24 17:02 Pulse Oximetry (%) 97 11/30/24 17:02 Oxygen Delivery Method Room Air 11/30/24 17:02 Shortness of Breath / Dyspnea MDM Narrative MDM Narrative:: Scribe Attestation: 11/30/24 - Juju Javier am scribing for and in the presence of Dr. Ward. 2128: Patient was seen here 3 days ago. She had a chest x-ray, along with COVID and Influenza swabs, which were all negative. CXR today shows right base pneumonia. Patient received a Duoneb and Dexamethasone earlier today here in the ED. I ordered another duoneb and doxycycline. Her vital signs are within normal limits. Patient is stable to be discharged home after she receives the medications. Patient data External records reviewed:: [facility] previous records (Per chart review, patient was seen here on 11/27/24 for URI.) Clinical information provided by:: patient Social determinants that could affect healthcare access:: substance use (former tobacco smoker) Patient has the following chronic illnesses:: COPD How is presenting disease/condition affected by chronic disease/condition?: exacerbated by Evaluation data The following diagnostics were reviewed and interpreted by me:: radiology exam(s) Lab and/or radiology exams considered but not ordered:: none Interpretation Summary: [facility] Report Signed Patient: GUY SANABRIA [facility]. Record#: [id number] Birthdate: 1960 Age/Sex: 64 / F Location: [facility] Attending Dr: Ordering Physician: Jorge Rodriguez Date of Service: 11/30/24 Procedure(s): XR chest 2V Accession Number(s): [id number] cc: Jorge Rodriguez; Fabiano Herbert MD~ Examination: PA lateral chest 2 views TECHNIQUE: Upright PA and lateral chest 2 views Date and time: November 30, 2024 1718 hours INDICATIONS: Chest pain beginning 4 weeks ago FINDINGS: Pneumonia right base obscuring detail right hemidiaphragm Normal heart size No pulmonary edema IMPRESSION: Right base pneumonia Dictated By: Fabiano Herbert MD Signed By: <Electronically signed by Fabiano Herbert MD in OV> 11/30/24 1804 Medications / Prescriptions Medications or Prescriptions considered but not ordered:: none Medication administrations:: Medication Administration History Hydrocodone Bitart/Acetaminophen (Hydrocodone/Apap 5/325 Tablet) 1 tab PO X1 ONE Stop: 11/30/24 21:36 Discontinued Medications Albuterol/Ipratropium (Albuterol/Ipratropium (Duoneb) Rt Susu 3 Ml Nebu) 3 ml INH X1 ONE Stop: 11/30/24 17:08 Last Admin: 11/30/24 17:55 Dose: 3 ml Documented By: Albuterol/Ipratropium (Albuterol/Ipratropium (Duoneb) Rt Susu 3 Ml Nebu) 3 ml INH X1 ONE Stop: 11/30/24 21:30 Dexamethasone Sodium Phosphate (Dexamethasone Sod Phos Inj 10 Mg/Ml Vial) 10 mg PO X1 ONE Stop: 11/30/24 17:08 Last Admin: 11/30/24 17:31 Dose: 10 mg Documented By: [facility] Comments: MED GIVEN ORALL, HAD TO CHART IV WHEN THERE IS NO IV Doxycycline Hyclate (Doxycycline 100 Mg Tablet) 100 mg PO X1 ONE Stop: 11/30/24 21:30 see above Consultations Consultation(s) initiated? (list below): No Diagnosis Shortness of Breath Differential Diagnosis: congestive heart failure, community acquired pneumonia, asthma with exacerbation and other (Influenza, COVID) Most likely diagnosis given after review of the tests above:: see clinical impression below Admission Indicated Admission indicated?: not indicated Explain why admission is indicated or not indicated:: Patient is stable for outpatient antibiotic management. Admission Request Was there a request for admission?: No Disposition Plan Disposition Plan: Discharge Discharge Attestation Discharge Attestation: The patient and all family members were given an opportunity to ask questions and understood the discharge instructions. Discharge instructions specifically effects, indications for sooner follow up or return to the emergency department, and the expected course of current diagnosis. Patient condition: Stable Discharge Plan Plan Patient Disposition: HOME (Self Care) Prescriptions/Referrals Prescriptions/Med Rec: New doxycycline monohydrate 100 mg capsule 100 mg PO BID Qty: 14 0RF No Action cephalexin 500 mg capsule 500 mg PO BID Qty: 10 0RF ibuprofen 800 mg tablet 800 mg PO TID PRN (Reason: pain) Qty: 30 0RF tramadol 50 mg tablet 50 mg PO BID PRN (Reason: pain) Qty: 4 0RF acetaminophen-codeine 300-30 mg tablet 1 tab PO TID PRN (Reason: pain) Qty: 20 0RF acetaminophen-codeine 300-30 mg tablet 2 tab PO Q8H MDD 6 PRN (Reason: pain) Qty: 20 0RF clonidine HCl 0.1 mg tablet 0.1 mg PO BID Qty: 60 0RF diphenhydramine HCl 50 mg capsule 50 mg PO BID Qty: 10 0RF dexamethasone 6 mg tablet 6 mg PO BID Qty: 14 0RF tramadol 50 mg tablet 50 mg PO TID PRN (Reason: pain) Qty: 20 0RF meloxicam 15 mg tablet 15 mg PO QDAY Qty: 20 0RF Referrals: Elbert (Referring),lAex Sharpe MD [Primary Care Provider] - In 1 week Problem List Clinical Impression: Pneumonia Patient/Caregiver Discharge Instructions Education Materials: ED Pneumonia (Adult), ED How to Quit Smoking Print Language: Thai Stand Alone Forms: Sabrina Award Info., Patient Portal Info Letter
[2024-11-30 21:45] VITALS: PULSE 72; RESP 18; O2SAT 99
[2024-11-30] MEDS: HYDROcodone/APAP 5/325 TABLET 1 TAB PO (21:59)
[2024-11-30] MEDS: DOXYCYCLINE 100 MG TABLET PO (22:00)
[2024-11-30 22:20] VITALS: BP 134/82; PULSE 70; RESP 16; TEMP 36.4; O2SAT 96
[2024-11-30 22:29] VITALS: RESP 16
== END 2024-11-30 22:30 | disposition home or self-care (01) ==
PROVIDERS: Emergency Provider Emergency Medicine; PCP Student in an Organized Health Care Education/Training Program
DX: J44.0 Chronic obstructive pulmonary disease with (acute) lower respiratory infection (principal); J18.9 Pneumonia, unspecified organism; Z87.891 Personal history of nicotine dependence
CPT/HCPCS: 71046; 94640; 96374; 99284; A9270; J1100

== ENCOUNTER 2024-12-02 11:26 | Emergency (ER) | payer MEDICARE, MEDICAID, SELFPAY ==
[2024-12-02 11:27] VITALS: BMI 25.4
[2024-12-02 12:06] VITALS: BP 141/62; PULSE 60; RESP 19; TEMP 36.8; O2SAT 92
--- NOTE | 2024-12-02 12:14 | PD.EDSOB ---
ED SOB =RME/HPI General Chief Complaint: Shortness of Breath/Dyspnea Stated Complaint: PT STATES SHE HAS PNA AND IT IS GETTING WORSE; SOB Time Seen by Provider: 12/02/24 11:37 Arrival date/time: 12/02/24 11:26 RME / HPI RME / HPI Narrative: 64-year-old female patient with significant history of COPD, came in for evaluation regarding worsening shortness of breath. Patient was diagnosed with pneumonia 2 days ago and came to the emergency room, and was prescribed doxycycline. Patient continued to have shortness of breath. Been using ProAir with no relief. Currently patient is satting 92% on room air. Denies any fever. Denies any chest pain. Denies any other complaints. Related Data Previous Rx's ?Medication ?Instructions ?Recorded cephalexin 500 mg capsule 500 mg PO BID #10 caps 01/18/23 ibuprofen 800 mg tablet 800 mg PO TID PRN pain #30 tabs 09/12/23 tramadol 50 mg tablet 50 mg PO BID PRN pain #4 tabs 01/18/24 diphenhydramine HCl 50 mg capsule 50 mg PO BID #10 caps 02/15/24 dexamethasone 6 mg tablet 6 mg PO BID #14 tabs 04/10/24 tramadol 50 mg tablet 50 mg PO TID PRN pain #20 tabs 04/10/24 acetaminophen 300 mg-codeine 30 mg 1 tab PO TID PRN pain #20 tabs 05/22/24 tablet meloxicam 15 mg tablet 15 mg PO QDAY #20 tabs 07/09/24 acetaminophen 300 mg-codeine 30 mg 2 tab PO Q8H PRN pain #20 tabs 09/11/24 tablet clonidine HCl 0.1 mg tablet 0.1 mg PO BID #60 tabs 09/11/24 doxycycline monohydrate 100 mg 100 mg PO BID #14 caps 11/30/24 capsule albuterol sulfate 2.5 mg/3 mL 2.5 mg (3 mL) inhalation QID PRN 12/02/24 (0.083 %) solution for nebulization shortness of breath or wheezing #90 mL albuterol sulfate 90 mcg/actuation 2 inh inhalation QID PRN shortness 12/02/24 breath activated powder inhaler of breath or wheezing #1 ea (ProAir RespiClick) amoxicillin 875 mg-potassium 1 tab PO BID #14 tabs 12/02/24 clavulanate 125 mg tablet prednisone 50 mg tablet 50 mg PO QDAY #5 tabs 12/02/24 Allergies Allergy/AdvReac Type Severity Reaction Status Date / Time metronidazole Allergy Severe RASH Verified 12/02/24 11:30 povidone-iodine Allergy Severe RASH, Verified 12/02/24 11:30 SWELLING Review of Systems Review of Systems Narrative Review of Systems: Review of system reviewed and within normal limits except mentioned in HPI ED Exam Narrative Physical exam: VITAL SIGNS: Reviewed. GENERAL APPEARANCE: Alert and interactive, follows commands, no acute distress, HEAD AND FACE: Non-traumatic. ENT: PERRL, pink conjunctivitis, eyelid no trauma, Mucous membrane moist. NECK: Supple, nontender, no nuchal rigidity. CHEST: No tenderness, no crepitus, no paradoxical movement, no retractions. LUNGS: Clear, well ventilated, symmetric, no rales, no wheezing, no ronchi, no stridor, good breath sounds bilaterally. HEART: Regular rate, regular rhythm, no murmur, no gallops. ABDOMEN: Soft, positive bowel sounds, nondistended, no guarding, nontender, no rebound, no masses, RECTAL: Deferred. GENITAL: Deferred. NEUROLOGICAL: Gross motor function intact sensory function intact, Appropriate for age. MUSCULOSKELETAL: low back nontender, full range of motion. EXTREMITIES: Nontender, full range of motion. SKIN: Color pink, dry, no rash, no lacerations, no abrasions, no contusions. LYMPHATICS: Deferred. Course Quality Measures none Orders Category Date Time Status Albuterol/Ipratr Rt Susu [Duoneb Rt Susu] Med 12/02/24 12:14 Discontinued 3 ml INH X1 ONE Dexamethasone Inj [Decadron Inj] Med 12/02/24 12:14 Discontinued 10 mg IM X1 ONE Vital Signs Vital signs: Vital Signs Temperature 98.2 F 12/02/24 12:06 Pulse Rate 60 12/02/24 12:06 Respiratory Rate 19 12/02/24 12:06 Blood Pressure 141/62 H 12/02/24 12:06 Pulse Oximetry (%) 92 L 12/02/24 12:06 Oxygen Delivery Method Room Air 12/02/24 12:06 Shortness of Breath / Dyspnea MDM Narrative MDM Narrative:: 64-year-old female patient with significant history of COPD, came in for evaluation regarding worsening shortness of breath. Patient was diagnosed with pneumonia 2 days ago and came to the emergency room, and was prescribed doxycycline. Patient continued to have shortness of breath. Been using ProAir with no relief. Currently patient is satting 92% on room air. Denies any fever. Denies any chest pain. Denies any other complaints. Patient was given Decadron and breathing treatment with significant improvement of symptoms. I reviewed patient's chest x-ray that was done 2 days ago. I added Augmentin. Was starting 98% on room air. Patient data External records reviewed:: None Clinical information provided by:: patient Social determinants that could affect healthcare access:: none Patient has the following chronic illnesses:: Diabetes mellitus How is presenting disease/condition affected by chronic disease/condition?: exacerbated by Evaluation data The following diagnostics were reviewed and interpreted by me:: lab results, radiology exam(s) and EKG tracing(s) Lab and/or radiology exams considered but not ordered:: None Interpretation Summary: None Medications / Prescriptions Medications or Prescriptions considered but not ordered:: none Medication administrations:: Medication Administration History Discontinued Medications Albuterol/Ipratropium (Albuterol/Ipratropium (Duoneb) Rt Susu 3 Ml Nebu) 3 ml INH X1 ONE Stop: 12/02/24 12:15 Last Admin: 12/02/24 12:31 Dose: 3 ml Documented By: CATERINA Dexamethasone Sodium Phosphate (Dexamethasone Sod Phos Inj 10 Mg/Ml Vial) 10 mg IM X1 ONE Stop: 12/02/24 12:15 Last Admin: 12/02/24 12:28 Dose: 10 mg Documented By: MELITON Comments: unable to bypass IV portion, given IM Decadron and DuoNeb Consultations Consultation(s) initiated? (list below): No Diagnosis Shortness of Breath Differential Diagnosis: acute exacerbation of chronic obstructive airways disease, community acquired pneumonia and asthma with exacerbation Most likely diagnosis given after review of the tests above:: COPD exacerbation, history recent pneumonia Admission Indicated Admission indicated?: not indicated Admission Request Was there a request for admission?: No Disposition Plan Disposition Plan: Discharge Discharge Attestation Discharge Attestation: The patient was given an opportunity to ask questions and understood the discharge instructions. Discharge instructions specifically effects, indications for sooner follow up or return to the emergency department, and the expected course of current diagnosis. Patient condition: Stable Discharge Plan Plan Patient Disposition: HOME (Self Care) Discharge Disposition comment: Stable Prescriptions/Referrals Prescriptions/Med Rec: New amoxicillin-pot clavulanate 875-125 mg tablet 1 tab PO BID Qty: 14 0RF prednisone 50 mg tablet 50 mg PO QDAY Qty: 5 0RF albuterol sulfate 2.5 mg /3 mL (0.083 %) solution for nebulization 2.5 mg inhalation QID PRN (Reason: shortness of breath or wheezing) Qty: 90 0RF ProAir RespiClick 90 mcg/actuation aerosol powdr breath activated 2 inh inhalation QID PRN (Reason: shortness of breath or wheezing) Qty: 1 0RF No Action cephalexin 500 mg capsule 500 mg PO BID Qty: 10 0RF ibuprofen 800 mg tablet 800 mg PO TID PRN (Reason: pain) Qty: 30 0RF tramadol 50 mg tablet 50 mg PO BID PRN (Reason: pain) Qty: 4 0RF acetaminophen-codeine 300-30 mg tablet 1 tab PO TID PRN (Reason: pain) Qty: 20 0RF acetaminophen-codeine 300-30 mg tablet 2 tab PO Q8H MDD 6 PRN (Reason: pain) Qty: 20 0RF clonidine HCl 0.1 mg tablet 0.1 mg PO BID Qty: 60 0RF diphenhydramine HCl 50 mg capsule 50 mg PO BID Qty: 10 0RF dexamethasone 6 mg tablet 6 mg PO BID Qty: 14 0RF tramadol 50 mg tablet 50 mg PO TID PRN (Reason: pain) Qty: 20 0RF meloxicam 15 mg tablet 15 mg PO QDAY Qty: 20 0RF doxycycline monohydrate 100 mg capsule 100 mg PO BID Qty: 14 0RF Referrals: Elbert (Referring),Alex Sharpe MD [Primary Care Provider] - In 1 week Problem List Clinical Impression: Acute exacerbation of chronic obstructive airways disease, Pneumonia Patient/Caregiver Discharge Instructions Discharge Activity: activity as tolerated Education Materials: COPD Meds Additional Instructions: Thank you for the opportunity for serving you today. You are stable for discharged . You are advised to: Follow-up with your PCP in 1 to 2 days Return to ED for worsening of symptoms Increase oral fluids Take medication as prescribed Print Language: Armenian Stand Alone Forms: Sabrina Award Info., Patient Portal Info Letter PA/PARALEGAL LEGAL SECRETARY Supervising Physician PA/PARALEGAL LEGAL SECRETARY Supervising Physician: MD Sally
[2024-12-02] MEDS: DEXAMETHASONE SOD PHOS INJ 10 MG/ML VIAL IM (12:28)
[2024-12-02] MEDS: ALBUTEROL/IPRATROPIUM (Duoneb) RT SOL 3 ML NEBU INH (12:31)
[2024-12-02 12:33] VITALS: PULSE 63; RESP 16; O2SAT 98
== END 2024-12-02 13:42 | disposition home or self-care (01) ==
PROVIDERS: Emergency Provider Emergency Medicine; PCP Student in an Organized Health Care Education/Training Program
DX: J44.1 Chronic obstructive pulmonary disease with (acute) exacerbation (principal); J44.0 Chronic obstructive pulmonary disease with (acute) lower respiratory infection; J18.9 Pneumonia, unspecified organism
CPT/HCPCS: 94640; 96372; 99283; A9270; J1100

== ENCOUNTER 2024-12-04 19:53 | Inpatient (IN) | payer MEDICARE, MEDICAID, SELFPAY ==
[2024-12-04] VITALS (7 sets, daily range): BP systolic 148–194; BP diastolic 85–91; PULSE 51–60; RESP 16–91; TEMP 36.7–36.9; O2SAT 94–100; BMI 25.4
--- NOTE | 2024-12-04 19:59 | EKG_ITS ---
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1960 Requested By: Stephanie Mcdonnell Order Number: [id number] Reading MD: Stephanie Mcdonnell Measurements Intervals Mobile Rate: 52 P: 62 MT: 157 QRS: 81 QRSD: 86 T: 37 QT: 437 QTc: 410 Interpretive Statements SINUS BRADYCARDIA LOW QRS VOLTAGE IN PRECORDIAL LEADS [QRS DEFLECTION < 1.0 mV IN CHEST LEADS] PATTERN CONSISTENT WITH PULMONARY DISEASE POSSIBLE RIGHT VENTRICULAR CONDUCTION DELAY [RSR (QR) IN V1/V2] MODERATE T-WAVE ABNORMALITY, CONSIDER ANTERIOR ISCHEMIA [-0.1+ mV T-WAVE IN V3/V4] Compared to ECG 07/09/2024 13:19:52 Possible ischemia now present Sinus rhythm no longer present Right-axis deviation no longer present T-wave abnormality still present /store/S0/[id number]/ecg/[id number].pdf
--- NOTE | 2024-12-04 19:59 | XR_ITS ---
Examination: AP chest single view TECHNIQUE: AP portable upright chest single view Date and time: December 04, 20242035 hours Comparison November 30, 2024 INDICATIONS: Chest pain shortness of breath today FINDINGS: Normal heart size No lobar pneumonia or pulmonary edema Moderate osteopenia IMPRESSION: No active disease
--- NOTE | 2024-12-04 20:16 | PD.EDSOB ---
ED SOB =RME/HPI General Chief Complaint: Shortness of Breath/Dyspnea Stated Complaint: SOB Time Seen by Provider: 12/04/24 19:56 Arrival date/time: 12/04/24 19:53 RME / HPI RME / HPI Narrative: DR WARD MAIN ED EVALUATION: 64 y/o female with Hx of COPD, Asthma, DVT and smoking presents to ED BIBA from home c/o shortness of breath and wheezing x 5 weeks but the last couple of days has gotten worse. Patient used Albuterol nebulizer which caused facial and BL hand swelling. She reports not being able to smoke, chest pain with inhalation, and denies any improvement with wheezing. Patient denies any other associated symptoms or aggravating factors. No modifying factors, no radiation, no migration. No pain reported overall. Related Data Home Medications ?Medication ?Instructions ?Recorded ?Confirmed apixaban 5 mg tablet (Eliquis) 5 mg PO 2XD 12/05/24 12/05/24 escitalopram oxalate 10 mg tablet 10 mg PO 1XD 12/05/24 12/05/24 quetiapine 300 mg tablet 300 mg PO 1XD 12/05/24 12/05/24 rivaroxaban 15 mg tablet (Xarelto) 15 mg PO Q24H 12/05/24 12/05/24 Previous Rx's ?Medication ?Instructions ?Recorded tramadol 50 mg tablet 50 mg PO BID PRN pain #4 tabs 01/18/24 diphenhydramine HCl 50 mg capsule 50 mg PO BID #10 caps 02/15/24 dexamethasone 6 mg tablet 6 mg PO BID #14 tabs 04/10/24 tramadol 50 mg tablet 50 mg PO TID PRN pain #20 tabs 04/10/24 meloxicam 15 mg tablet 15 mg PO QDAY #20 tabs 07/09/24 clonidine HCl 0.1 mg tablet 0.1 mg PO BID #60 tabs 09/11/24 doxycycline monohydrate 100 mg 100 mg PO BID #14 caps 11/30/24 capsule albuterol sulfate 2.5 mg/3 mL 2.5 mg (3 mL) inhalation QID PRN 12/02/24 (0.083 %) solution for nebulization shortness of breath or wheezing #90 mL albuterol sulfate 90 mcg/actuation 2 inh inhalation QID PRN shortness 12/02/24 breath activated powder inhaler of breath or wheezing #1 ea (ProAir RespiClick) amoxicillin 875 mg-potassium 1 tab PO BID #14 tabs 12/02/24 clavulanate 125 mg tablet prednisone 50 mg tablet 50 mg PO QDAY #5 tabs 12/02/24 Allergies Allergy/AdvReac Type Severity Reaction Status Date / Time metronidazole Allergy Severe RASH Verified 12/04/24 19:56 povidone-iodine Allergy Severe RASH, Verified 12/04/24 19:56 SWELLING albuterol Allergy Verified 12/04/24 20:14 Review of Systems Review of Systems Systems Reviewed: All systems reviewed, normal except as documented Past Medical History Past Medical History CARDIAC: Positive Deep Vein Thrombosis RESPIRATORY: Positive Chronic Obstructive Pulmonary Disease (COPD) and Asthma GASTROINTESTINAL: Positive Gastrointestinal Disorders and Gall Bladder Disease MUSCULOSKELETAL: Positive Musculoskeletal Disorders and Arthritis Surgical History SURGICAL: Positive of Back Surgery Social History SMOKING STATUS: Current some day smoker 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 HEENT: Normocephalic, atraumatic; pupils equal, round, reactive to light; EOMI; mucous membranes pink, moist; oropharynx clear NECK: Supple LUNGS: Wheezing and decreased air movement throughout, no rales, no rhonchi HEART: Regular rate, regular rhythm; normal S1, S2; no murmurs ABDOMEN: non distended; normal BS; soft, no tenderness, no guarding, no rebound; no masses, no organomegaly, no hernia BACK: no CVA tenderness EXTREMITIES: atraumatic; no edema NEUROLOGIC: awake; alert and oriented x4; cranial nerves II-XII grossly intact; no focal sensory or motor deficits PSYCHIATRIC: appropriate mood and affect SKIN: warm, dry, normal color; no rashes Course Course Course Narrative: CXR is ordered for determining the etiology of shortness of breath. 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 NOW Care 12/04/24 19:59 Active EKG (ED ONLY) *Do not use* NOW Care 12/04/24 19:59 Completed Insert IV NOW Care 12/04/24 20:15 Active EKG (ED Only) Stat Exams 12/04/24 19:59 Draft XR chest 1V portable Stat Exams 12/04/24 19:59 Completed B-Type Natriuretic Peptide Stat Lab 12/04/24 20:25 Completed CBC Stat Lab 12/04/24 20:25 Completed Comprehensive Metabolic Panel Stat Lab 12/04/24 20:25 Completed Lipase Stat Lab 12/04/24 20:25 Completed Magnesium Stat Lab 12/04/24 20:25 Completed Partial Thromboplastin Time Stat Lab 12/04/24 20:25 Completed Prothrombin Time with INR Stat Lab 12/04/24 20:25 Completed Troponin I Stat Lab 12/04/24 20:25 Completed ALBUTEROL RT 0.5ml [Proventil Rt 0.5ml] Med 12/04/24 19:59 Discontinued 10 mg INH X1 ONE Acetaminophen Tab [Tylenol ES Tab] Med 12/04/24 21:55 Discontinued 1,000 mg PO X1 ONE Ipratropium Strabane Rt Susu [Atrovent Rt Susu] Med 12/04/24 19:59 Discontinued 0.5 mg INH X1 ONE Levalbuterol Rt [Xopenex Rt Susu] Med 12/04/24 20:16 Discontinued 1.25 mg INH X1 ONE Levalbuterol Rt [Xopenex Rt Susu] Med 12/04/24 21:33 Discontinued 1.25 mg INH X1 ONE MethylPREDNISolone.* [SoluMEDROL Inj] Med 12/04/24 19:59 Discontinued 125 mg IVP X1 ONE Sodium Chloride Rt Susu 0.9% [NS Rt Susu 0.9%] Med 12/04/24 19:59 Active 3 ml INH PRN PRN Sodium Chloride Rt Susu 0.9% [NS Rt Susu 0.9%] Med 12/04/24 19:59 Discontinued 3 ml INH PRN PRN Sodium Chloride Rt Susu 0.9% [NS Rt Susu 0.9%] Med 12/04/24 21:33 Active 3 ml INH PRN PRN Oxygen Delivery NOW RT 12/04/24 22:00 Active Vital Signs Vital signs: Vital Signs Temperature 98.1 F 12/04/24 19:56 Pulse Rate 60 12/04/24 19:56 Respiratory Rate 20 12/04/24 19:56 Blood Pressure 194/91 H 12/04/24 19:56 Pulse Oximetry (%) 95 12/04/24 19:56 Oxygen Delivery Method Room Air 12/04/24 19:56 Shortness of Breath / Dyspnea MDM Narrative MDM Narrative:: Scribe Attestation: I, Kristine Leslie, am scribing for and in the presence of Dr. Ward. Provider Notation: Although this document has been carefully reviewed, there may still be some phonetic and other typographical errors.? These errors are purely grammatical due to imperfections in the software program and should not be construed in any way to? compromise the substance of the patient's medical care during this visit. Patient data External records reviewed:: [facility] previous records (Reviewed prior ED records from 12/02/24. Patient was seen for Acute exacerbation of chronic obstructive airways disease.) and EMS form Clinical information provided by:: patient and EMS Social determinants that could affect healthcare access:: substance use (Methamphetamine) Patient has the following chronic illnesses:: Deep Vein Thrombosis, Chronic Obstructive Pulmonary Disease, Asthma, Gall Bladder Disease, Arthritis How is presenting disease/condition affected by chronic disease/condition?: exacerbated by Evaluation data The following diagnostics were reviewed and interpreted by me:: lab results, radiology exam(s) and EKG tracing(s) (EKG manual reading, my interpretation: sinus rhythm, rate: 52 bpm, T-wave inversion in V1-V4, notch in P-wave possible atrial enlargement, pattern consistent with pulmonary disease.) Lab and/or radiology exams considered but not ordered:: None Interpretation Summary: RADIOLOGY Chest X-Ray: Patient: GUY SANABRIA [facility]. Record#: [id number] Birthdate: 1960 Age/Sex: 64 / F Location: [facility] Attending Dr: Ordering Physician: Stephanie Ward MD Date of Service: 12/04/24 Procedure(s): XR chest 1V portable Accession Number(s): [id number] cc: Alex Boswell MD; Fabiano Herbert MD; Stephanie Ward MD~ Examination: AP chest single view TECHNIQUE: AP portable upright chest single view Date and time: December 04, 20242035 hours Comparison November 30, 2024 INDICATIONS: Chest pain shortness of breath today FINDINGS: Normal heart size No lobar pneumonia or pulmonary edema Moderate osteopenia IMPRESSION: No active disease Dictated By: Fabiano Herbert MD Signed By: <Electronically signed by Fabiano Herbert MD in OV> 12/04/242049 Medications / Prescriptions Medications or Prescriptions considered but not ordered:: None Medication administrations:: Medication Administration History Acetaminophen (Acetaminophen 325 Mg Tablet) 650 mg PO Q6H PRN PRN Reason: PAIN SCALE 1-3 (mild Stop: 01/04/25 00:47 Apixaban (Apixaban 2.5 Mg Tablet) 5 mg PO BID ON LICENSE OF [facility] Stop: 01/04/25 08:59 Azithromycin 250 mg/ Sodium (Chloride) 250 mls @ 250 mls/hr IV QDAY@2100 ON LICENSE OF [facility] Stop: 12/08/24 20:59 Levalbuterol HCl (Levalbuterol Rt 0.63 Mg/3 Ml Nebu) 0.63 mg INH Q4HR GÉNESIS Stop: 01/04/25 01:59 Last Admin: 12/05/24 02:53 Dose: 0.63 mg Documented By: YAN Methylprednisolone Sodium Succinate (Methylprednisolone Sod Succ 40 Mg Vial) 40 mg IVP QDAY ON LICENSE OF [facility] Stop: 12/12/24 08:59 Ondansetron HCl (Ondansetron Inj 2 Mg/Ml Inj 2 Ml) 4 mg IVP Q6H PRN; Protocol PRN Reason: NAUSEA OR VOMITING Stop: 01/04/25 00:47 Oxycodone/Acetaminophen (Oxycodone/Apap 5/325 Tablet) 1 tab PO Q6H PRN PRN Reason: PAIN SCALE 4-6 (Moderate Stop: 12/10/24 00:47 Fluticasone/Salmeterol (Fluticasone/Salmeterol 250/50 14 Dose Inh) 1 puff INH BIDRT ON LICENSE OF [facility] Stop: 01/04/25 06:59 Sennosides (Senna Tablet) 1 tab PO QDAY PRN; Protocol PRN Reason: constipation Stop: 01/04/25 00:47 Sodium Chloride (Sodium Chloride Rt Susu 0.9% 3 Ml Nebu) 3 ml INH PRN PRN PRN Reason: SOLN Stop: 01/03/25 19:58 Last Admin: 12/04/24 22:37 Dose: 3 ml Documented By: Admin: 12/04/24 20:22 Dose: 3 ml Documented By: JAZMYN Sodium Chloride (Sodium Chloride Rt Susu 0.9% 3 Ml Nebu) 3 ml INH PRN PRN PRN Reason: SOLN Stop: 01/03/25 21:32 Discontinued Medications Acetaminophen (Acetaminophen 500 Mg Tablet) 1,000 mg PO X1 ONE Stop: 12/04/24 21:56 Last Admin: 12/04/24 21:59 Dose: 1,000 mg Documented By: BD Albuterol (Albuterol Rt 2.5 Mg/0.5 Ml Nebu) 10 mg INH X1 ONE Stop: 12/04/24 20:00 Last Admin: 12/04/24 20:28 Dose: Not Given Documented By: BD Non-Admin Reason: Cancelled by Provider Comments: ALLERGY Azithromycin 250 mg/ Sodium (Chloride) 250 mls @ 250 mls/hr IV X1 ONE Stop: 12/05/24 01:59 Last Infusion: 12/05/24 03:33 Dose: Infused Documented By: Admin: 12/05/24 01:12 Dose: 250 mls/hr Documented By: BD Ipratropium Strabane (Ipratropium Rt 0.5 Mg/ 2.5 Ml Nebu) 0.5 mg INH X1 ONE Stop: 12/04/24 20:00 Last Admin: 12/04/24 21:22 Dose: Not Given Documented By: BD Non-Admin Reason: Cancelled by Provider Levalbuterol HCl (Levalbuterol Rt 1.25 Mg/0.5 Ml Nebu) 1.25 mg INH X1 ONE Stop: 12/04/24 20:17 Last Admin: 12/04/24 20:21 Dose: 1.25 mg Documented By: JAZMYN Levalbuterol HCl (Levalbuterol Rt 1.25 Mg/0.5 Ml Nebu) 1.25 mg INH X1 ONE Stop: 12/04/24 21:34 Last Admin: 12/04/24 22:37 Dose: 1.25 mg Documented By: JAZMYN Methylprednisolone Sodium Succinate (Methylprednisolone Sod Succ 62.5 Mg/Ml 2ml Vial) 125 mg IVP X1 ONE Stop: 12/04/24 20:00 Last Admin: 12/04/24 20:27 Dose: 125 mg Documented By: BD Methylprednisolone Sodium Succinate (Methylprednisolone Sod Succ 40 Mg Vial) 40 mg IVP BID GÉNESIS Stop: 12/12/24 08:59 Sodium Chloride (Sodium Chloride Rt Susu 0.9% 3 Ml Nebu) 3 ml INH PRN PRN PRN Reason: SOLN Stop: 01/03/25 19:58 See above if any Consultations Consultation(s) initiated? (list below): Yes Consultation #1 (Physician, Specialty, Details): Discussed with Dr. Noland for admission. Reviewed the patient?s HPI, PMHx, lab and/or radiology results. Discussed treatment plan. Accepts patient for admission. Time: 00:11 Diagnosis Shortness of Breath Differential Diagnosis: acute exacerbation of chronic obstructive airways disease, congestive heart failure, community acquired pneumonia, asthma with exacerbation and pulmonary embolism Most likely diagnosis given after review of the tests above:: Hypoxia, COPD exacerbation Admission Indicated Admission indicated?: indicated Explain why admission is indicated or not indicated:: Hypoxia, COPD exacerbation Admission Request Was there a request for admission?: Yes Admission Attestation Admission request attestation: Discussed case with [] from Hospitalist service regarding admission. Discussed patients ED course, exam findings, labs, and radiology results. The Hospitalist [agrees,declines] to accept the patient for admission. Disposition Plan Disposition Plan: Admit Discharge Plan Plan Patient Disposition: Admit Acute Care w/in Hospital Problem List Clinical Impression: COPD exacerbation, Hypoxia
[2024-12-04] MEDS: LEVALBUTEROL RT 1.25 MG/0.5 ML NEBU INH ×2 (20:21→22:37)
[2024-12-04] MEDS: SODIUM CHLORIDE RT SOL 0.9% 3 ML NEBU INH ×2 (20:22→22:37)
[2024-12-04] MEDS: MethylPREDNISolone SOD SUCC 62.5 MG/ML 2ML VIAL 125 MG IVP (20:27)
[2024-12-04 20:36] LABS: Basophils % (Auto) 0 % (0-2.5); Eosinophils # (Auto) 0.2 Thou/mm3 (0.0-0.5); Eosinophils % (Auto) 3 % (0-10); Hematocrit 38.1 % (36.0-46.0); Hemoglobin 12.7 g/dL (12.0-16.0); Immature Granulocytes % (Auto) 1 % (0-0); Immature Granulocytes Auto 0.09 Thou/mm3 (0.00-0.00); Lymphocytes # (Auto) 2.5 Thou/mm3 (1.0-4.8); Lymphocytes % (Auto) 35 % (10-50); Mean Corpuscular HGB Conc 33.3 g/dl (31.0-37.0); Mean Corpuscular Hemoglobin 31.4 pg (25.0-35.0); Mean Corpuscular Volume 94 fL (80-100); Monocytes # (Auto) 0.5 Thou/mm3 (0.0-0.8); Monocytes % (Auto) 7 % (0-12); Neutrophils # (Auto) 3.9 Thou/mm3 (1.8-7.7); Neutrophils % (Auto) 54 % (37-80); Nucleated Red Blood Cell % 0 /100 WBC (0); Platelet Count 286 Thou/mm3 (140-440); RDW Standard Deviation 47.7 fL (36.4-46.3); Red Blood Count 4.05 Miln/mm3 (4.00-5.20); White Blood Count 7.2 Thou/mm3 (3.6-11.0)
[2024-12-04 20:51] LABS: Partial Thromboplastin Time 24.2 Seconds (22.0-36.0); Prothrombin Time 10.6 Seconds (9.0-12.2)
[2024-12-04 20:53] LABS: B-Type Natriuretic Peptide 76 pg/mL (0-100)
[2024-12-04 20:56] LABS: Alanine Aminotransferase 19 U/L (10-49); Albumin, Serum 3.9 gm/dL (3.4-4.8); Alkaline Phosphatase 62 U/L (46-116); Anion Gap 9 (7-16); Aspartate Amino Transferase 14 U/L (0-34); BUN/Creatinine Ratio 12 Ratio (12-20); Bilirubin,Total 0.4 mg/dL (0.3-1.2); Blood Urea Nitrogen 13 mg/dL (9-23); Calcium 9.2 mg/dL (8.3-10.6); Calcium (Corrected) 9.3 mg/dL (8.5-10.1); Carbon Dioxide 27.5 mMol/L (20.0-31.0); Chloride 105 mMol/L (98-107); Creatinine (Component) 1.1 mg/dL (0.6-1.3); Glucose 98 mg/dL (74-106); Lipase 26 U/L (12-53); Magnesium 1.9 mg/dL (1.6-2.6); Osmolality,Calculated 281 (275-295); Potassium 3.5 mMol/L (3.4-5.1); Sodium 141 mMol/L (136-145); Total Protein 5.9 gm/dL (5.7-8.2); Troponin I < 0.020 ng/mL (0.0-0.045); eGFR 56 See Note
[2024-12-04] MEDS: ACETAMINOPHEN 500 MG TABLET 1000 MG PO (21:59)
[2024-12-05] VITALS (10 sets, daily range): BP systolic 121–155; BP diastolic 63–88; PULSE 50–84; RESP 16–20; TEMP 36.1–36.9; O2SAT 91–99; BMI 25.9
--- NOTE | 2024-12-05 00:47 | PD.RESHP ---
Documentation for date of: 12/05/24 HPI History of Present Illness Chief complaint: Shortness of breath History of present illness: 64-year-old female with past medical history of asthma, COPD not on any home oxygen, remote history of meth use disorder, active smoker but has quit about 3 days ago, roughly [id number] history, history of clot in internal jugular on Eliquis presenting to the ED on 12/05 with increased shortness of breath after a breathing treatment. Patient has been feeling short of breath for about 5 weeks now and states that she was seen by PCP about 2 days ago at which point she was started on amoxicillin, doxycycline and prednisone but has not improved. Patient denies any sick contacts, recent travel and states that she has been having a nonproductive cough. Patient uses 3 different inhalers including (albuterol, Advair and a third unknown inhaler) for COPD/asthma. Patient also apparently had a clot in her internal jugular diagnosed about a year ago and has been on Eliquis since that time. Patient denies having any other concerning symptoms at this time. Medical history: As stated above Surgical history: Back surgery, cholecystectomy Allergies: Metronidazole causes rash, povidone iodine causes rash/swelling, albuterol? Medications: Pending med rec Family history: Noncontributory Social history: Patient is an active smoker with roughly 72-[id number] history, remote meth use disorder, denies any alcohol use ROS: All 12 systems assessed and the patient denies unless otherwise stated in HPI In the ED, patient presented in hypertensive urgency 194/91, heart rate 60, respiratory rate 20, afebrile satting 95 on room air but has since required 2 L of supplemental oxygen saturating in the low 90s. Pertinent lab findings include WBC of 7.2, creatinine 1.1, BUN 13, troponin within normal limits, BNP of 76, chest x-ray shows no active disease and EKG shows sinus bradycardia. Patient will be admitted for likely COPD exacerbation versus asthma exacerbation and started on IV steroids, IV antibiotics and breathing treatments. Exam Vital Signs Temp Pulse Resp BP Pulse Ox O2 Del Method O2 Flow Rate 98.4 F 51 L 16 121/63 91 L Nasal Cannula 2 12/05/24 00:00 12/05/24 00:00 12/05/24 00:00 12/05/24 00:00 12/05/24 00:00 12/05/24 00:00 12/05/24 00:00 Narrative Exam Physical Exam: GENERAL: Somnolent but answering questions appropriately in Urdu, appears stated age HEENT: NC/AT. Moist mucosa. PERRLA/EOMI. CARDIO: Heart RRR, no obvious murmurs, no JVD. PULM: No coughing or visible SOB but continues to be on 2 L saturating in the low 90s. Patient has coarse rhonchi auscultated on bilateral lung ross GI: Abdomen soft, NT/ND, +BS. SKIN/MSK/EXT: No wounds/discoloration/rashes/edema/amputations. +Pedal pulses present B/L. NEURO: Oriented x3, Moves extremities x4, no focal neurologic deficits noted Results: Labs 12/05/24 01:15 12/05/24 01:15 Labs: Short CBC 12/04/24 Range/Units 20:25 WBC 7.2 (3.6-11.0) Thou/mm3 Hgb 12.7 (12.0-16.0) g/dL Hct 38.1 (36.0-46.0) % Plt Count 286 (140-440) Thou/mm3 BMP 12/04/24 20:25 Sodium 141 Potassium 3.5 Chloride 105 Carbon Dioxide 27.5 BUN 13 Creatinine 1.1 Glucose 98 Calcium 9.2 Cardiac Enzymes 12/04/24 Range/Units 20:25 Troponin I < 0.020 (0.0-0.045) ng/mL Liver Function 12/04/24 Range/Units 20:25 Total Bilirubin 0.4 (0.3-1.2) mg/dL AST 14 (0-34) U/L ALT 19 (10-49) U/L Alkaline Phosphatase 62 (46-116) U/L Albumin 3.9 (3.4-4.8) gm/dL Quality Measures Quality Measures none Advance care planning discussed with:: patient Medications Home Medications and Allergies Home Medications ?Medication ?Instructions ?Recorded ?Confirmed ?Type apixaban 5 mg tablet (Eliquis) 5 mg PO 2XD 12/05/24 12/05/24 History escitalopram oxalate 10 mg tablet 10 mg PO 1XD 12/05/24 12/05/24 History quetiapine 300 mg tablet 300 mg PO 1XD 12/05/24 12/05/24 History rivaroxaban 15 mg tablet (Xarelto) 15 mg PO Q24H 12/05/24 12/05/24 History Allergies Allergy/AdvReac Type Severity Reaction Status Date / Time metronidazole Allergy Severe RASH Verified 12/04/24 19:56 povidone-iodine Allergy Severe RASH, Verified 12/04/24 19:56 SWELLING albuterol Allergy Verified 12/04/24 20:14 Visit Medications Sodium Chloride (Sodium Chloride Rt Susu 0.9% 3 Ml Nebu) 3 ml INH PRN PRN PRN Reason: SOLN Stop: 01/03/25 19:58 Last Admin: 12/04/24 22:37 Dose: 3 ml Sodium Chloride (Sodium Chloride Rt Susu 0.9% 3 Ml Nebu) 3 ml INH PRN PRN PRN Reason: SOLN Stop: 01/03/25 21:32 Discontinued Medications Acetaminophen (Acetaminophen 500 Mg Tablet) 1,000 mg PO X1 ONE Stop: 12/04/24 21:56 Last Admin: 12/04/24 21:59 Dose: 1,000 mg Albuterol (Albuterol Rt 2.5 Mg/0.5 Ml Nebu) 10 mg INH X1 ONE Stop: 12/04/24 20:00 Last Admin: 12/04/24 20:28 Dose: Not Given Ipratropium [place] (Ipratropium Rt 0.5 Mg/ 2.5 Ml Nebu) 0.5 mg INH X1 ONE Stop: 12/04/24 20:00 Last Admin: 12/04/24 21:22 Dose: Not Given Levalbuterol HCl (Levalbuterol Rt 1.25 Mg/0.5 Ml Nebu) 1.25 mg INH X1 ONE Stop: 12/04/24 20:17 Last Admin: 12/04/24 20:21 Dose: 1.25 mg Levalbuterol HCl (Levalbuterol Rt 1.25 Mg/0.5 Ml Nebu) 1.25 mg INH X1 ONE Stop: 12/04/24 21:34 Last Admin: 12/04/24 22:37 Dose: 1.25 mg Methylprednisolone Sodium Succinate (Methylprednisolone Sod Succ 62.5 Mg/Ml 2ml Vial) 125 mg IVP X1 ONE Stop: 12/04/24 20:00 Last Admin: 12/04/24 20:27 Dose: 125 mg Sodium Chloride (Sodium Chloride Rt Susu 0.9% 3 Ml Nebu) 3 ml INH PRN PRN PRN Reason: SOLN Stop: 01/03/25 19:58 Assessment & Plan Plan 64-year-old female with past medical history of asthma, COPD not on any home oxygen, remote history of meth use disorder, active smoker but has quit about 3 days ago, roughly 50-qqth-[id number] history, history of clot in internal jugular on Eliquis presenting to the ED with increased shortness of breath after a breathing treatment will be admitted for likely COPD exacerbation versus asthma exacerbation and started on IV steroids, IV antibiotics and breathing treatments. #COPD exacerbation #Asthma #Tobacco use disorder As stated above, patient has been having shortness of breath for about 5 weeks, has history of COPD and asthma not on any oxygen Was seen by PCP about 2 days ago and was started on amoxicillin, doxycycline and prednisone with minimal improvement Patient presented to the ED actively short of breath and is now requiring 2 L of oxygen In the ED, patient was given breathing treatments, IV methylprednisolone Chest x-ray showed no active disease On examination, patient has coarse rhonchi heard on bilateral lung ross Plan: IV azithromycin 200 mg daily IV methylprednisolone 40 mg daily Levalbuterol breathing treatments every 4 hours Restart patient's Advair, pending official med rec will restart other inhaler Consider nicotine 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 #Hypertensive urgency Patient has known history of high blood pressure, pending med rec regarding antihypertensive use Presented with blood pressure systolic in the 190s which self resolved and is now currently normotensive Patient's troponin and BNP within normal limits EKG shows sinus bradycardia with some possible T wave abnormalities patient denies having any active chest pain Plan: Monitor for any acute changes Lipid panel and A1c ordered #History of thrombus in IJ #Sinus bradycardia #Meth use disorder #Chronic pain Chronic medical conditions, not pertinent to current findings Plan: Pending official med rec restart home medications Health Maintenance: Lines: PIV Diet: Cardiac Bowel: Not needed GI prophylaxis: Not needed DVT prophylaxis: On Eliquis 5 mg twice daily Dispo: Treating for COPD exacerbation with IV steroids, antibiotics and breathing treatments Code: Full Patient seen and examined with attending Dr. Ludin Sage, DO PGY-1 Internal Medicine - GME Attending Provider Attestation/Addendum I reviewed labs, imaging, EKG, home medications and prior available records. Face to face evaluation was performed by me. I have personally examined the patient and discussed assessment and plan with the IM team. I reviewed the resident note and agree with the plan with exceptions as below. Acute hypoxic respiratory failure COPD exacerbation History of tobacco use Essential hypertension Start DuoNebs Start IV corticosteroids Wean off oxygen as tolerated Avoid tobacco exposure
[2024-12-05] MEDS: AZITHROMYCIN INJ 250 MG in SODIUM CHLORIDE 0.9% 250 ML 250 ML IV (01:12)
[2024-12-05 01:25] LABS: Basophils % (Auto) 0 % (0-2.5); Eosinophils % (Auto) 1 % (0-10); Hematocrit 38.7 % (36.0-46.0); Hemoglobin 13.3 g/dL (12.0-16.0); Immature Granulocytes % (Auto) 1 % (0-0); Immature Granulocytes Auto 0.07 Thou/mm3 (0.00-0.00); Lymphocytes # (Auto) 0.8 Thou/mm3 (1.0-4.8); Lymphocytes % (Auto) 13 % (10-50); Mean Corpuscular HGB Conc 34.4 g/dl (31.0-37.0); Mean Corpuscular Hemoglobin 31.4 pg (25.0-35.0); Mean Corpuscular Volume 91 fL (80-100); Monocytes # (Auto) 0.1 Thou/mm3 (0.0-0.8); Monocytes % (Auto) 1 % (0-12); Neutrophils # (Auto) 5.4 Thou/mm3 (1.8-7.7); Neutrophils % (Auto) 84 % (37-80); Nucleated Red Blood Cell % 0 /100 WBC (0); Platelet Count 264 Thou/mm3 (140-440); RDW Standard Deviation 46.6 fL (36.4-46.3); Red Blood Count 4.24 Miln/mm3 (4.00-5.20); White Blood Count 6.4 Thou/mm3 (3.6-11.0)
[2024-12-05 01:37] LABS: Glucose Estimated Average 108 mg/dL (80-131); Hemoglobin A1C 5.4 % Hgb (4.8-6.0)
[2024-12-05 01:45] LABS: Alanine Aminotransferase 21 U/L (10-49); Albumin, Serum 3.8 gm/dL (3.4-4.8); Albumin/Globulin Ratio 1.7 (1.2-2.2); Alkaline Phosphatase 65 U/L (46-116); Anion Gap 11 (7-16); Aspartate Amino Transferase 18 U/L (0-34); BUN/Creatinine Ratio 9 Ratio (12-20); Bilirubin,Total 0.4 mg/dL (0.3-1.2); Blood Urea Nitrogen 11 mg/dL (9-23); Calcium 8.6 mg/dL (8.3-10.6); Calcium (Corrected) 8.8 mg/dL (8.5-10.1); Cardiac Risk Estimate 2.7 RATIO (3.7-5.6); Chloride 108 mMol/L (98-107); Cholesterol 206 mg/dL (132-200); Creatinine (Component) 1.2 mg/dL (0.6-1.3); Globulin 2.3 gm/dL (2.3-3.5); Glucose 160 mg/dL (74-106); HDL Cholesterol 77 mg/dL (40-60); LDL Cholesterol,Calculated 115 mg/dL (0-130); Osmolality,Calculated 289 (275-295); Potassium 3.5 mMol/L (3.4-5.1); Sodium 144 mMol/L (136-145); Total Protein 6.1 gm/dL (5.7-8.2); Triglycerides 69 mg/dL (30-150); eGFR 50 See Note
[2024-12-05] MEDS: LEVALBUTEROL RT 0.63 MG/3 ML NEBU INH ×3 (02:53→10:09)
[2024-12-05] MEDS: APIXABAN 2.5 MG TABLET 5 MG PO (09:20)
--- NOTE | 2024-12-05 09:44 | PC.SS ---
Patient Adela Miranda is a 64 Year old female admitted for ASthma,COPD Exacerbation. SS met with patient at bedside to discuss discharge plan and verify demographic information. Patient appeared to be alert and oriented. Patient reports she lives at home alone. Patient reports her surrogate decision maker is her, Sister, Antonietta Quarles, [phone]. Patient reports prior to admission she did not utilize any source of DME to assist with ambulation, patient is able to complete all ADL's independently. At time of discharge patient reports she will return back home family will provide transportation. Next of kin: surrogate decision maker, Sister Antonietta Quarles [phone] Discharge plan: Home
[2024-12-05] MEDS: Lisinopril 20 MG TABLET PO (10:07)
--- NOTE | 2024-12-05 10:24 | PD.RESDS ---
Planned Discharge Date 12/05/24 DS: Providers Provider Date of admission: 12/05/24 00:48 Primary care physician: Alex Boswell MD Admitting Provider: Heber Noland MD Attending Provider on Admission: Heber Noland MD Attending Provider on DC: Elfego Armando MD Discharging Provider: Elfego Armando MD DS: Diagnosis Problem List Completed Was Problem List Reviewed/Reconciled?: Yes Hospital Course Hospital Course Hospital course: Adela Singh is a 64-year-old female with a past medical history of COPD (not on home O2), asthma, remote history of meth use, current smoker, history of clot and right IJ who presented to the ED on 12/05 with increased shortness of breath after breathing treatment. She had been feeling short of breath for approximately 5 weeks up until admission and went to her PCP for which she was prescribed amoxicillin, doxycycline, and steroids but did not experience improvement and thus presented to the ED. Admitted for management of COPD exacerbation with IV methylprednisolone 40 mg, azithromycin, and levalbulterol. Only required minimal oxygen while in the hospital and upon evaluation, she was able to saturate 95% on room air. Given that vital signs stable and patient satruating well on room air, CBC and chem panel largely unremarkable, patient was thus stable for discharge. Will prescribe nicotine patches as she is interested in cessation of tobacco use, azithromycin and prednisone for 3 and 5 days respectively, and trelegy ellipta for further management of her COPD. Additionally, change clonidine to lisinopril for blood pressure management. Diagnoses during admission: #COPD exacerbation #Asthma #Tobacco use disorder #Hypertensive urgency #History of thrombus in IJ #Sinus bradycardia #Meth use disorder #Chronic pain Discharge instructions: ? Take azithromycin for 3 more days ? Take prednisone for 5 more days ? You've been prescribed trelegy ellipta for your COPD ? Your clonidine was switched to lisinopril and continue until you follow-up with your PCP ? Stop taking amoxicillin, doxycycline, dexamethasone, eliquis, and clonidine until you follow-up with your PCP ? Continue taking all other home medications as prescribed ? Follow-up with PCP within 1-2 weeks of discharge ? Return to ED if symptoms worsen or recur ----- Plan discussed with attending physician Dr. Radha Armando MD PGY-1 Internal Medicine Time Spent with Patient Time attestation: Total time spent providing and/or coordinating discharge services: Time spent: Greater than 30 minutes Exam Vital Signs Temp Pulse Resp BP Pulse Ox O2 Del Method O2 Flow Rate 97.4 F 69 18 141/85 H 99 Nasal Cannula 1 12/05/24 07:51 12/05/24 10:11 12/05/24 10:11 12/05/24 10:07 12/05/24 10:11 12/05/24 07:51 12/05/24 10:11 Narrative Exam General: AOx3, no acute distress, able to speak full sentences HEENT: NC/AT, mucous membranes moist, bilateral sclera anicteric Cardiovascular: regular rate and rhythm, S1/S2 present, no murmurs appreciated Pulmonary: mild wheezing appreciated bilaterally, not in respiratory distress Abdominal: soft, non-tender, non-distended, no rebound/guarding, normal bowel sounds present Musculoskeletal: normal ROM, no peripheral edema Skin: warm and dry, intact, no rashes Neuro: CN II-XII intact, no focal deficits Discharge Plan Plan Patient Disposition: HOME (Self Care) Care Plan Goals: ? Take azithromycin for 3 more days ? Take prednisone for 5 more days ? You've been prescribed trelegy ellipta for your COPD ? Your clonidine was switched to lisinopril and continue until you follow-up with your PCP ? Stop taking amoxicillin, doxycycline, dexamethasone, eliquis, and clonidine until you follow-up with your PCP ? Continue taking all other home medications as prescribed ? Follow-up with PCP within 1-2 weeks of discharge ? Return to ED if symptoms worsen or recur Prescriptions/Referrals Prescriptions/Med Rec: New azithromycin 500 mg tablet 500 mg PO QDAY 3 Days Qty: 3 0RF lisinopril 20 mg tablet 20 mg PO QDAY Qty: 30 0RF prednisone 20 mg tablet 20 mg PO QDAY Qty: 5 0RF nicotine 14 mg/24 hr patch 24 hour 14 mg topical DAILY Qty: 14 0RF Trelegy Ellipta 100-62.5-25 mcg blister with device 1 inh inhalation QDAY Qty: 28 0RF Continued albuterol sulfate 2.5 mg /3 mL (0.083 %) solution for nebulization 2.5 mg inhalation QID PRN (Reason: shortness of breath or wheezing) Qty: 90 0RF ProAir RespiClick 90 mcg/actuation aerosol powdr breath activated 2 inh inhalation QID PRN (Reason: shortness of breath or wheezing) Qty: 1 0RF diphenhydramine HCl 50 mg capsule 50 mg PO BID Qty: 10 0RF meloxicam 15 mg tablet 15 mg PO QDAY Qty: 20 0RF quetiapine 300 mg tablet 300 mg PO 1XD escitalopram oxalate 10 mg tablet 10 mg PO 1XD Xarelto 15 mg tablet 15 mg PO Q24H Discontinued tramadol 50 mg tablet 50 mg PO BID PRN (Reason: pain) Qty: 4 0RF clonidine HCl 0.1 mg tablet 0.1 mg PO BID Qty: 60 0RF amoxicillin-pot clavulanate 875-125 mg tablet 1 tab PO BID Qty: 14 0RF prednisone 50 mg tablet 50 mg PO QDAY Qty: 5 0RF dexamethasone 6 mg tablet 6 mg PO BID Qty: 14 0RF tramadol 50 mg tablet 50 mg PO TID PRN (Reason: pain) Qty: 20 0RF doxycycline monohydrate 100 mg capsule 100 mg PO BID Qty: 14 0RF Eliquis 5 mg tablet 5 mg PO 2XD Referrals: Alex Boswell MD [Primary Care Provider] - Patient/Caregiver Discharge Instructions Discharge Activity: activity as tolerated Education Materials: Asthma and COPD Print Language: Pashto Stand Alone Forms: Sabrina Award Info., Patient Portal Info Letter Discharge Order Discharge Orders: Discharge (Routine); Ordered 12/05/24 Ordered By: Elfego Wilson [facility] Quality Discharge Quality Measures VTE prophylaxis Attestestation Attestation I have examined the patient, reviewed labs and imaging findings, discussed the case with the resident(s), and reviewed entered orders. I agree with the plan of care as outlined in this note. Time Spent: [address] Radha MD
--- NOTE | 2024-12-05 11:15 | PC.NURSE ---
Pt states she is waiting for her ride home from family
--- NOTE | 2024-12-05 13:09 | PC.SS ---
SS set up transportation through [place] [facility]. Patient will be transported back home.
== END 2024-12-05 13:12 | disposition home or self-care (01) | DRG 192 ==
LOC: SERX 20:42 → S3NX 12-05 09:49 → SERHOLD 12-07 05:52
PROVIDERS: Admitting Provider Student in an Organized Health Care Education/Training Program; Emergency Provider Emergency Medicine; PCP Student in an Organized Health Care Education/Training Program; Visit Provider Student in an Organized Health Care Education/Training Program
DX: J44.1 Chronic obstructive pulmonary disease with (acute) exacerbation (principal); I16.0 Hypertensive urgency; I10 Essential (primary) hypertension; G89.29 Other chronic pain; F15.90 Other stimulant use, unspecified, uncomplicated; F17.210 Nicotine dependence, cigarettes, uncomplicated; R00.1 Bradycardia, unspecified; Z86.718 Personal history of other venous thrombosis and embolism; F17.200 Nicotine dependence, unspecified, uncomplicated; Z71.6 Tobacco abuse counseling
CPT/HCPCS: 36415; 71045; 80053; 80061; 83036; 83690; 83735; 83880; 84484; 85025; 85610; 85730; 87811; 93005; 93225; 94640; 94664; 96365; 96366; 96375; 99285; J0456; J2919; J7050; A9270

== ENCOUNTER 2024-12-06 22:56 | Inpatient (IN) | payer MEDICARE, MEDICAID, SELFPAY ==
--- NOTE | 2024-12-06 22:59 | PD.EDSOB ---
ED SOB =RME/HPI General Chief Complaint: Shortness of Breath/Dyspnea Stated Complaint: SOB Time Seen by Provider: 12/06/24 23:06 Arrival date/time: 12/06/24 22:56 RME / HPI RME / HPI Narrative: This section includes all my notes and documentations, including HPI, PE, and ED course. Hans Belle MD HPI: 64yo female with a history of COPD, asthma, current smoker BIBA from home presents to the ED for worsening cough, productive cough, purulent sputum, and dyspnea. No chest pain. No fever. Was discharged from our hospital service yesterday. No other complaints. ROS: All negative except as documented in HPI. Physical Exam: General: Alert and oriented. In moderate respiratory distress. Hypoxia noted. Eyes: Conjunctivae and lids clear. ENT: No nasal congestion. Neck: Supple. Heart: RRR. Lungs: In moderate respiratory distress. Moderately decreased air movement with rhonchi and rails. Abdomen: Soft and nontender. Back: No CVA tenderness. Skin: Warm and dry. Neuro: Alert and oriented X 3. I reviewed EMS notes. I reviewed all diagnostic test results. My interpretation of the EKG is NSR with nonspecific ST-T changes. My interpretation of the chest x-ray is infiltrates. Blood tests unremarkable. COVID/Influenza negative. At this point, diagnoses include acute respiratory failure and pneumonia and COPD exacerbation. Treatment here included oxygen, Tylenol with Codeine, Xopenex, Solumedrol, Levaquin, and Zofran. No significant improvement noted. I discussed the case with our hospitalist. About the presentation and exam and diagnostics and treatments here. And need of further care in the hospital. Will accept the patient. Hans Belle MD Related Data Home Medications ?Medication ?Instructions ?Recorded ?Confirmed escitalopram oxalate 10 mg tablet 10 mg PO 1XD 12/05/24 12/05/24 quetiapine 300 mg tablet 300 mg PO 1XD 12/05/24 12/05/24 rivaroxaban 15 mg tablet (Xarelto) 15 mg PO Q24H 12/05/24 12/05/24 Previous Rx's ?Medication ?Instructions ?Recorded diphenhydramine HCl 50 mg capsule 50 mg PO BID #10 caps 02/15/24 meloxicam 15 mg tablet 15 mg PO QDAY #20 tabs 07/09/24 albuterol sulfate 2.5 mg/3 mL 2.5 mg (3 mL) inhalation QID PRN 12/02/24 (0.083 %) solution for nebulization shortness of breath or wheezing #90 mL albuterol sulfate 90 mcg/actuation 2 inh inhalation QID PRN shortness 12/02/24 breath activated powder inhaler of breath or wheezing #1 ea (ProAir RespiClick) azithromycin 500 mg tablet 500 mg PO QDAY 3 days #3 tabs 12/05/24 fluticasone fur. 100 mcg-umeclid 1 inh inhalation QDAY #28 ea 12/05/24 62.5 mcg-vilant 25 mcg inhalat.powder (Trelegy Ellipta) lisinopril 20 mg tablet 20 mg PO QDAY #30 tabs 12/05/24 nicotine 14 mg/24 hr daily 14 mg topical DAILY #14 ea 12/05/24 transdermal patch prednisone 20 mg tablet 20 mg PO QDAY #5 tabs 12/05/24 Allergies Allergy/AdvReac Type Severity Reaction Status Date / Time metronidazole Allergy Severe RASH Verified 12/04/24 19:56 povidone-iodine Allergy Severe RASH, Verified 12/04/24 19:56 SWELLING albuterol Allergy Verified 12/04/24 20:14 Review of Systems Review of Systems Systems Reviewed: All systems reviewed, normal except as documented ED Exam Narrative Physical exam: As noted in HPI. Course Course Course Narrative: CXR is ordered for determining the etiology of shortness of breath. Quality Measures none Orders Category Date Time Status Bedside COVID-19 Antigen Test NOW Care 12/07/24 00:18 Active Bedside Influenza A&B Antigen Test NOW Care 12/07/24 00:18 Completed COVID-19 Screening Questionnaire NOW Care 12/07/24 00:51 Active Decision to Admit X1 Care 12/07/24 00:51 Active EKG (ED ONLY) *Do not use* NOW Care 12/06/24 23:10 Completed Saline [Insert IV] NOW Care 12/06/24 23:08 Active Straight [In and Out Catheter] X1 Care 12/06/24 23:08 Active EKG (ED Only) Stat Exams 12/06/24 23:10 Ordered XR chest 1V portable Stat Exams 12/06/24 23:10 Completed ABG [Arterial Blood Gas] Stat Lab 12/07/24 00:50 Ordered BNP [B-Type Natriuretic Peptide] Stat Lab 12/06/24 23:20 Completed Bilirubin,Direct Stat Lab 12/06/24 23:20 Completed CBC Stat Lab 12/06/24 23:20 Completed CMP [Comprehensive Metabolic Panel] Stat Lab 12/06/24 23:20 Completed Free T4 (Free Thyroxine) Stat Lab 12/06/24 23:20 Completed Magnesium Stat Lab 12/06/24 23:20 Completed TSH [Thyroid Stimulating Hormone] Stat Lab 12/06/24 23:20 Completed Troponin I Stat Lab 12/06/24 23:20 Completed UA, C/S IF [Urinalysis, C/S if Indicated] Stat Lab 12/06/24 23:10 Ordered ACETAMINOPHEN w/COD 300-30 [Tylenol w/Cod #3] Med 12/06/24 23:08 Discontinued 2 tab PO X1 ONE Levalbuterol Rt [Xopenex Rt Susu] Med 12/06/24 23:08 Discontinued 2.5 mg INH X1 ONE Levofloxacin/D5w 500 mg Ivpb [Levaquin Ivpb] Med 12/07/24 00:50 Ordered 500 mg in 100 ml IV X1 MethylPREDNISolone.* [SoluMEDROL Inj] Med 12/06/24 23:08 Discontinued 125 mg IVP X1 ONE Ondansetron Inj [Zofran Inj] Med 12/06/24 23:08 Discontinued 4 mg IVP X1 ONE Sodium Chloride Rt Susu 0.9% [NS Rt Susu 0.9%] Med 12/06/24 23:08 Active 3 ml INH PRN PRN Vital Signs Vital signs: Vital Signs Pulse Rate 60 12/06/24 23:03 Respiratory Rate 25 H 12/06/24 23:03 Blood Pressure 155/89 H 12/06/24 23:03 Pulse Oximetry (%) 97 12/06/24 23:03 Oxygen Delivery Method Nasal Cannula 12/06/24 23:03 Oxygen Flow Rate 6 12/06/24 23:03 Shortness of Breath / Dyspnea MDM Narrative MDM Narrative:: Scribe Attestation: 12/06/24 - Juju Javier am scribing for and in the presence of Dr. Belle. 64yo female with a history of COPD, asthma, current smoker BIBA from home presents to the ED for worsening cough, productive cough, purulent sputum, and dyspnea. No chest pain. No fever. Was discharged from our hospital service yesterday. No other complaints. Patient data External records reviewed:: [facility] previous records (Per chart review, patient was admitted here on 12/04/24 for COPD exacerbation.) Clinical information provided by:: patient and EMS Social determinants that could affect healthcare access:: none Patient has the following chronic illnesses:: COPD, asthma How is presenting disease/condition affected by chronic disease/condition?: exacerbated by Evaluation data The following diagnostics were reviewed and interpreted by me:: lab results, radiology exam(s) and EKG tracing(s) (My interpretation of the EKG is: Sinus rhythm (54 bpm) with nonspecific ST-T changes. Hans Belle MD) Lab and/or radiology exams considered but not ordered:: none Interpretation Summary: I reviewed all diagnostic test results. My interpretation of the EKG is NSR with nonspecific ST-T changes. My interpretation of the chest x-ray is infiltrates. Blood tests unremarkable. COVID/Influenza negative. Medications / Prescriptions Medications or Prescriptions considered but not ordered:: none Medication administrations:: Medication Administration History Levofloxacin/Dextrose (Levaquin Ivpb) 500 mg in 100 mls @ 100 mls/hr IV X1 ONE Stop: 12/07/24 01:49 Sodium Chloride (Sodium Chloride Rt Susu 0.9% 3 Ml Nebu) 3 ml INH PRN PRN PRN Reason: SOLN Stop: 01/05/25 23:07 Last Admin: 12/06/24 23:45 Dose: 3 ml Documented By: BROOKLYNN Discontinued Medications Acetaminophen/Codeine Phosphate (Acetaminophen W/Cod 300-30 Tablet) 2 tab PO X1 ONE Stop: 12/06/24 23:09 Last Admin: 12/06/24 23:23 Dose: 2 tab Documented By: WALTER Levalbuterol HCl (Levalbuterol Rt 1.25 Mg/0.5 Ml Nebu) 2.5 mg INH X1 ONE Stop: 12/06/24 23:09 Last Admin: 12/06/24 23:44 Dose: 2.5 mg Documented By: BROOKLYNN Methylprednisolone Sodium Succinate (Methylprednisolone Sod Succ 62.5 Mg/Ml 2ml Vial) 125 mg IVP X1 ONE Stop: 12/06/24 23:09 Last Admin: 12/06/24 23:21 Dose: 125 mg Documented By: WALTER Ondansetron HCl (Ondansetron Inj 2 Mg/Ml Inj 2 Ml) 4 mg IVP X1 ONE; Protocol Stop: 12/06/24 23:09 Last Admin: 12/06/24 23:22 Dose: 4 mg Documented By: WALTER Tylenol with Codeine, Xopenex, Solumedrol, Zofran, Levaquin Consultations Consultation(s) initiated? (list below): No Diagnosis Shortness of Breath Differential Diagnosis: acute exacerbation of chronic obstructive airways disease, congestive heart failure, community acquired pneumonia, asthma with exacerbation, pulmonary embolism and other (COVID/influenza) Most likely diagnosis given after review of the tests above:: Respiratory failure, pneumonia, and COPD exacerbation. Admission Indicated Admission indicated?: indicated Explain why admission is indicated or not indicated:: Respiratory failure, pneumonia, and COPD exacerbation. Admission Request Was there a request for admission?: Yes Admission Attestation Admission request attestation: Discussed case with Hospitalist service regarding admission. Discussed patients ED course, exam findings, labs, and radiology results. The Hospitalist [agrees] to accept the patient for admission. Disposition Plan Disposition Plan: Admit Discharge Plan Plan Patient Disposition: Admit Acute Care w/in Hospital Prescriptions/Referrals Prescriptions/Med Rec: No Action albuterol sulfate 2.5 mg /3 mL (0.083 %) solution for nebulization 2.5 mg inhalation QID PRN (Reason: shortness of breath or wheezing) Qty: 90 0RF ProAir RespiClick 90 mcg/actuation aerosol powdr breath activated 2 inh inhalation QID PRN (Reason: shortness of breath or wheezing) Qty: 1 0RF diphenhydramine HCl 50 mg capsule 50 mg PO BID Qty: 10 0RF meloxicam 15 mg tablet 15 mg PO QDAY Qty: 20 0RF quetiapine 300 mg tablet 300 mg PO 1XD escitalopram oxalate 10 mg tablet 10 mg PO 1XD Xarelto 15 mg tablet 15 mg PO Q24H azithromycin 500 mg tablet 500 mg PO QDAY 3 Days Qty: 3 0RF lisinopril 20 mg tablet 20 mg PO QDAY Qty: 30 0RF prednisone 20 mg tablet 20 mg PO QDAY Qty: 5 0RF nicotine 14 mg/24 hr patch 24 hour 14 mg topical DAILY Qty: 14 0RF Trelegy Ellipta 100-62.5-25 mcg blister with device 1 inh inhalation QDAY Qty: 28 0RF Referrals: No Primary/Family,Physician [Primary Care Provider] - In 1 week Problem List Clinical Impression: Acute respiratory failure with hypoxia, Pneumonia, COPD exacerbation Patient/Caregiver Discharge Instructions Print Language: Albanian Stand Alone Forms: Sabrina Award Info., Patient Portal Info Letter
[2024-12-06 23:00] VITALS: PULSE 82; RESP 26; O2SAT 98; BMI 25.9
[2024-12-06 23:03] VITALS: BP 155/89; PULSE 60; RESP 25; O2SAT 97
--- NOTE | 2024-12-06 23:10 | XR_ITS ---
Examination: AP chest single view TECHNIQUE: AP portable upright chest single view Date and time: December 06, 2024 11:24 PM Comparison December 04, 2024 INDICATIONS: Shortness of breath coughing today. FINDINGS: Early pneumonia right base Normal heart size Osseous structures are intact IMPRESSION: Early pneumonia right base
[2024-12-06 23:11] VITALS: TEMP 37
[2024-12-06] MEDS: MethylPREDNISolone SOD SUCC 62.5 MG/ML 2ML VIAL 125 MG IVP (23:21)
[2024-12-06] MEDS: ONDANSETRON INJ 2 MG/ML INJ 2 ML 4 MG IVP (23:22)
[2024-12-06] MEDS: ACETAMINOPHEN w/COD 300-30 TABLET 2 TAB PO (23:23)
[2024-12-06 23:26] LABS: Basophils % (Auto) 0 % (0-2.5); Eosinophils # (Auto) 0.2 Thou/mm3 (0.0-0.5); Eosinophils % (Auto) 2 % (0-10); Hematocrit 41.5 % (36.0-46.0); Hemoglobin 13.9 g/dL (12.0-16.0); Immature Granulocytes % (Auto) 1 % (0-0); Lymphocytes # (Auto) 3.4 Thou/mm3 (1.0-4.8); Lymphocytes % (Auto) 38 % (10-50); Mean Corpuscular HGB Conc 33.5 g/dl (31.0-37.0); Mean Corpuscular Volume 92 fL (80-100); Monocytes # (Auto) 0.6 Thou/mm3 (0.0-0.8); Monocytes % (Auto) 6 % (0-12); Neutrophils # (Auto) 4.7 Thou/mm3 (1.8-7.7); Neutrophils % (Auto) 53 % (37-80); Nucleated Red Blood Cell % 0 /100 WBC (0); Platelet Count 315 Thou/mm3 (140-440); RDW Standard Deviation 47.7 fL (36.4-46.3); Red Blood Count 4.49 Miln/mm3 (4.00-5.20); White Blood Count 8.9 Thou/mm3 (3.6-11.0)
[2024-12-06] MEDS: LEVALBUTEROL RT 1.25 MG/0.5 ML NEBU 2.5 MG INH (23:44)
[2024-12-06 23:45] LABS: B-Type Natriuretic Peptide 35 pg/mL (0-100)
[2024-12-06] MEDS: SODIUM CHLORIDE RT SOL 0.9% 3 ML NEBU INH (23:45)
[2024-12-06 23:46] VITALS: PULSE 56; RESP 22; O2SAT 92
[2024-12-06 23:50] LABS: Alanine Aminotransferase 23 U/L (10-49); Albumin/Globulin Ratio 1.7 (1.2-2.2); Alkaline Phosphatase 67 U/L (46-116); Anion Gap 8 (7-16); Aspartate Amino Transferase 15 U/L (0-34); BUN/Creatinine Ratio 14 Ratio (12-20); Bilirubin,Direct 0.1 mg/dL (0.0-0.3); Bilirubin,Total 0.4 mg/dL (0.3-1.2); Blood Urea Nitrogen 17 mg/dL (9-23); Calcium 8.8 mg/dL (8.3-10.6); Calcium (Corrected) 8.8 mg/dL (8.5-10.1); Carbon Dioxide 26.9 mMol/L (20.0-31.0); Chloride 108 mMol/L (98-107); Creatinine (Component) 1.2 mg/dL (0.6-1.3); Estimated Creatinine Clearance 44.4 mL/min (>60); Free T4 (Free Thyroxine) 1.32 ng/dL (0.89-1.76); Globulin 2.3 gm/dL (2.3-3.5); Glucose 108 mg/dL (74-106); Magnesium 2.1 mg/dL (1.6-2.6); Osmolality,Calculated 287 (275-295); Potassium 3.9 mMol/L (3.4-5.1); Sodium 143 mMol/L (136-145); Total Protein 6.3 gm/dL (5.7-8.2); Troponin I < 0.020 ng/mL (0.0-0.045); eGFR 50 See Note
[2024-12-07] VITALS (18 sets, daily range): BP systolic 103–143; BP diastolic 60–73; PULSE 45–76; RESP 15–96; TEMP 36.1–36.6; O2SAT 90–98; BMI 31.9
[2024-12-07] MEDS: LEVOFLOXACIN/D5W 500 MG IVPB 500 MG/100 ML BAG 100 MG IV (01:15)
[2024-12-07 01:21] LABS: Base Excess 1 (-3-3); HCO3 27 mEq/L (20-26); Inspired Oxygen, FIO2 21 %; O2 Saturation 96 % (91-98); PCO2 47 mmHg (32.0-48.0); PO2 78 mmHg (83-108); pH, Arterial 7.37 (7.35-7.45)
--- NOTE | 2024-12-07 01:32 | PD.RESHP ---
Documentation for date of: 12/07/24 HPI History of Present Illness Chief complaint: Shortness of breath History of present illness: 64-year-old female with past medical history of asthma, COPD not on any home oxygen, remote history of meth use disorder, active smoker but has quit about 3 days ago, roughly 33-exbw-ynan history, history of clot in internal jugular on Xarelto presenting to the ED with increased shortness of breath. Patient was recently discharged on 12/05/2024 for COPD exacerbation, however patient states that as soon as she got home she started feeling short of breath again and became lethargic and slept throughout the whole day. She also states some cough with productive phlegm although unable to expectorate for the past couple of weeks with no improvement. Patient also states some subjective chills but no fevers. At this time patient denies fever, chest pain, palpitations, nausea, vomiting, recent travel, sick contacts, orthopnea, PND. ED course: ED vitals: BP 155/89, HR 60, respiratory rate 25, O2 sat 97% on 6 L nasal cannula ED labs: CBC unremarkable, ABG unremarkable, CHEM panel unremarkable, chest x-ray shows some early pneumonia in the right base. In the ED patient received Solu-Medrol, levofloxacin, Zofran and breathing treatments PMHx: As above SX Hx: Back surgery, cholecystectomy Social Hx: Patient is an active smoker with roughly 23-dwan-gqng history, remote meth use disorder states she has been clean for the past 18 months, denies any alcohol use Allergies: Metronidazole causes rash, povidone iodine causes rash/swelling, albuterol??? Medications: Pending med rec FH X: Unknown Review of Systems Review of Systems Systems Reviewed: All systems reviewed, normal except as documented Narrative Review of Systems: All 12 systems reviewed and found negative unless otherwise stated in the HPI Exam Vital Signs Temp Pulse Resp BP Pulse Ox O2 Del Method O2 Flow Rate 97.8 F 51 L 17 103/62 94 L Oxy Mask 5 12/07/24 00:50 12/07/24 01:21 12/07/24 01:21 12/07/24 00:50 12/07/24 01:21 12/07/24 00:50 12/07/24 01:21 Narrative Exam Physical Exam GENERAL: NAD, AAOx3 HEENT: Moist mucosa. Eyes open, symmetrical, & clear CARDIO: Heart RRR, no obvious murmurs PULM: Coughing and dyspnea, bilateral wheezing GI: Abdomen soft, nondistended, no pain on palpation. BSx4 SKIN/MSK/EXT: No wounds/rashes/edema/amputations, no pain on palpation. Pedal pulses present B/L NEURO: AAOx3, no focal neuro deficits, able to move all 4 extremities Results: Labs 12/07/24 04:09 12/07/24 04:09 Labs: Short CBC 12/06/24 Range/Units 23:20 WBC 8.9 (3.6-11.0) Thou/mm3 Hgb 13.9 (12.0-16.0) g/dL Hct 41.5 (36.0-46.0) % Plt Count 315 D (140-440) Thou/mm3 BMP 12/06/24 23:20 Sodium 143 Potassium 3.9 Chloride 108 H Carbon Dioxide 26.9 BUN 17 Creatinine 1.2 Glucose 108 H D Calcium 8.8 Cardiac Enzymes 12/06/24 Range/Units 23:20 Troponin I < 0.020 (0.0-0.045) ng/mL Liver Function 12/06/24 Range/Units 23:20 Total Bilirubin 0.4 (0.3-1.2) mg/dL Direct Bilirubin 0.1 (0.0-0.3) mg/dL AST 15 (0-34) U/L ALT 23 (10-49) U/L Alkaline Phosphatase 67 (46-116) U/L Albumin 4.0 (3.4-4.8) gm/dL Quality Measures Quality Measures none Advance care planning discussed with:: patient Medications Home Medications and Allergies Home Medications ?Medication ?Instructions ?Recorded ?Confirmed ?Type escitalopram oxalate 10 mg tablet 10 mg PO 1XD 12/05/24 12/07/24 History quetiapine 300 mg tablet 300 mg PO 1XD 12/05/24 12/07/24 History rivaroxaban 15 mg tablet (Xarelto) 15 mg PO Q24H 12/05/24 12/07/24 History Allergies Allergy/AdvReac Type Severity Reaction Status Date / Time metronidazole Allergy Severe RASH Verified 12/04/24 19:56 povidone-iodine Allergy Severe RASH, Verified 12/04/24 19:56 SWELLING albuterol Allergy Verified 12/04/24 20:14 Visit Medications Levofloxacin/Dextrose (Levaquin Ivpb) 500 mg in 100 mls @ 100 mls/hr IV X1 ONE Stop: 12/07/24 01:49 Last Admin: 12/07/24 01:15 Dose: 100 mls/hr Sodium Chloride (Sodium Chloride Rt Susu 0.9% 3 Ml Nebu) 3 ml INH PRN PRN PRN Reason: SOLN Stop: 01/05/25 23:07 Last Admin: 12/06/24 23:45 Dose: 3 ml Discontinued Medications Acetaminophen/Codeine Phosphate (Acetaminophen W/Cod 300-30 Tablet) 2 tab PO X1 ONE Stop: 12/06/24 23:09 Last Admin: 12/06/24 23:23 Dose: 2 tab Levalbuterol HCl (Levalbuterol Rt 1.25 Mg/0.5 Ml Nebu) 2.5 mg INH X1 ONE Stop: 12/06/24 23:09 Last Admin: 12/06/24 23:44 Dose: 2.5 mg Methylprednisolone Sodium Succinate (Methylprednisolone Sod Succ 62.5 Mg/Ml 2ml Vial) 125 mg IVP X1 ONE Stop: 12/06/24 23:09 Last Admin: 12/06/24 23:21 Dose: 125 mg Ondansetron HCl (Ondansetron Inj 2 Mg/Ml Inj 2 Ml) 4 mg IVP X1 ONE; Protocol Stop: 12/06/24 23:09 Last Admin: 12/06/24 23:22 Dose: 4 mg Assessment & Plan Plan 64-year-old female with past medical history as stated above who presented to the ED after recent discharge due to increased shortness of breath. Here of the admitted for acute hypoxic respiratory failure likely secondary to COPD exacerbation and pneumonia. #Acute hypoxic respiratory failure likely secondary to #COPD exacerbation/asthma #Community-acquired pneumonia Patient was recently discharged on 12/05/2024 for COPD exacerbation, however patient states that as soon as she got home she started feeling short of breath again and became lethargic and slept throughout the whole day. She also states some cough with productive phlegm although unable to expectorate for the past couple of weeks with no improvement. Patient also states some subjective chills but no fevers In the ER she was unable to be weaned off oxygen she started to desat in the low 80s Cardinal symptoms (dyspnea, increased sputum production, wheezing) Chest x-ray shows right-sided pneumonia ? Ceftriaxone ? Azithromycin ? Breathing treatments as needed and scheduled ? Solu-Medrol 40 mg IV daily ? Chest physiotherapy ? Follow-up cultures ? Keep oxygen levels at goal 88-92% saturation ? Consider home oxygen as patient desats here in the ER #History of clot in IJ #Hypertension #Nicotine use ? Resume Xarelto as taken at home ? Med rec ordered ? Nicotine patch provided Health Maintenance: Disposition: Med telemetry Fluids: None Feeding: Regular Thrombo prophylaxis: Xarelto Gastric Ulcer prophylaxis: Not indicated CODE STATUS: Full code Case discussed with my attending Dr. Ludin Sanders MD PGY-1 Disclaimer: Despite multiple revisions, due to the dictation software being used, the document bellow may not be free of grammatical errors including phonetic/typographic errors. However, this does not deter from our commitment to providing health care in the patient's best interest in mind. Attending Provider Attestation/Addendum I reviewed labs, imaging, EKG, home medications and prior available records. Face to face evaluation was performed by me. I have personally examined the patient and discussed assessment and plan with the IM team. I reviewed the resident note and agree with the plan with exceptions as below. Productive cough Right lower lobe pneumonia COPD Acute versus chronic hypoxic respiratory failure Started IV ceftriaxone Resume azithromycin Continue DuoNebs Continue oxygen as needed. She may need home oxygen in setting of COPD
[2024-12-07 01:38] LABS: Allen Test Performed/OK; Puncture Site Right Radial
[2024-12-07] MEDS: ACETAMINOPHEN 325 MG TABLET 1000 MG PO (01:58)
[2024-12-07 02:11] LABS: Collection Type, Urine Clean Catch
[2024-12-07 02:20] LABS: Bilirubin,Urine Negative (Negative); Blood,Urine Trace (Negative); Clarity,Urine Clear (Clear/Hazy); Color,Urine Colorless (Lt Yel-Yel); Culture Indicated,Urine Not Indicated; Glucose, Urine Negative (Negative); Ketones,Urine Negative (Negative); Leukocyte Esterase,Urine Negative (Negative); Nitrite,Urine Negative (Negative); PH,Urine 5.5 (5.0-7.0); Protein,Urine Negative (Neg - Trace); RBC,Urine 3 /hpf (0-3); Specific Gravity,Urine 1.013 (1.001-1.035); Squamous Epithelial Cell,Urine < 1 /hpf (0-5); Urobilinogen,Urine Negative mg/dL (0.0-1.0); WBC,Urine < 1 /hpf (0-5)
[2024-12-07] MEDS: MORPHINE SULF INJ 10 MG/ML VIAL IVP (02:26)
[2024-12-07] MEDS: ONDANSETRON INJ 2 MG/ML INJ 2 ML 4 MG IVP (02:27)
[2024-12-07] MEDS: cefTRIAXone/D5w 1gm IV premix 1 GM/50 ML BAG IV ×2 (02:27→20:35)
[2024-12-07] MEDS: SODIUM CL RT SOL 3% 4 ML NEBU (NON-FORMULARY) INH (03:27)
[2024-12-07] MEDS: SODIUM CHLORIDE RT 10% 15 ML NEBU 5 ML INH (03:39)
[2024-12-07 04:49] LABS: Basophils % (Auto) 0 % (0-2.5); Eosinophils % (Auto) 0 % (0-10); Hematocrit 38.7 % (36.0-46.0); Hemoglobin 12.7 g/dL (12.0-16.0); Immature Granulocytes % (Auto) 1 % (0-0); Immature Granulocytes Auto 0.09 Thou/mm3 (0.00-0.00); Lymphocytes # (Auto) 0.6 Thou/mm3 (1.0-4.8); Lymphocytes % (Auto) 7 % (10-50); Mean Corpuscular HGB Conc 32.8 g/dl (31.0-37.0); Mean Corpuscular Volume 94 fL (80-100); Monocytes # (Auto) 0.2 Thou/mm3 (0.0-0.8); Monocytes % (Auto) 3 % (0-12); Neutrophils # (Auto) 7.3 Thou/mm3 (1.8-7.7); Neutrophils % (Auto) 89 % (37-80); Nucleated Red Blood Cell % 0 /100 WBC (0); Platelet Count 244 Thou/mm3 (140-440); RDW Standard Deviation 48.3 fL (36.4-46.3); White Blood Count 8.2 Thou/mm3 (3.6-11.0)
[2024-12-07] MEDS: HYDROcodone/APAP 5/325 TABLET 1 TAB PO (05:15)
[2024-12-07 05:17] LABS: Alanine Aminotransferase 159 U/L (10-49); Albumin, Serum 3.6 gm/dL (3.4-4.8); Albumin/Globulin Ratio 1.7 (1.2-2.2); Alkaline Phosphatase 68 U/L (46-116); Anion Gap 9 (7-16); Aspartate Amino Transferase 411 U/L (0-34); BUN/Creatinine Ratio 16 Ratio (12-20); Bilirubin,Total 0.5 mg/dL (0.3-1.2); Blood Urea Nitrogen 19 mg/dL (9-23); Calcium 8.2 mg/dL (8.3-10.6); Calcium (Corrected) 8.5 mg/dL (8.5-10.1); Carbon Dioxide 25.8 mMol/L (20.0-31.0); Chloride 106 mMol/L (98-107); Creatinine (Component) 1.2 mg/dL (0.6-1.3); Estimated Creatinine Clearance 49.1 mL/min (>60); Globulin 2.1 gm/dL (2.3-3.5); Glucose 205 mg/dL (74-106); Magnesium 2.1 mg/dL (1.6-2.6); Osmolality,Calculated 289 (275-295); Potassium 4.1 mMol/L (3.4-5.1); Sodium 141 mMol/L (136-145); Total Protein 5.7 gm/dL (5.7-8.2); eGFR 50 See Note
[2024-12-07] MEDS: LEVALBUTEROL RT 1.25 MG/0.5 ML NEBU INH ×3 (06:43→18:11)
[2024-12-07] MEDS: AZITHROMYCIN 250 MG TABLET PO (08:47)
[2024-12-07] MEDS: RIVAROXABAN 10 MG, RIVAROXABAN 5 MG 15 MG PO (08:47)
[2024-12-07] MEDS: SENNA TABLET 1 TAB PO (08:47)
[2024-12-07] MEDS: NICOTINE PATCH 21 MG/24 HR PATCH.TD24 TOP (08:48)
--- NOTE | 2024-12-07 09:06 | EKG_ITS ---
[facility] Test Date: 2024-12-07 Pat Name: GUY SANABRIA [facility] Hand Thermal Cutter: FAHAD : 1960 Requested By: Elfego Armando Order Number: [id number] Reading MD: Elfego Armando Measurements Intervals [place] Rate: 46 P: 64 [place]: 168 QRS: 64 QRSD: 73 T: 18 QT: 506 QTc: 447 Interpretive Statements SINUS BRADYCARDIA LOW QRS VOLTAGE IN PRECORDIAL LEADS POSSIBLE RIGHT VENTRICULAR CONDUCTION DELAY PROLONGED QT INTERVAL Compared to ECG 12/04/2024 20:03:40 Prolonged QT interval now present T-wave abnormality no longer present Possible ischemia no longer present /store/S0/[id number].pdf
--- NOTE | 2024-12-07 09:17 | ESPR_ITS ---
<Statement entered by Eduarda Soto MD - 12/07/24 13:45> 34-year-old female with past medical history of COPD, asthma was admitted for acute hypoxic respiratory failure secondary to COPD exacerbation in the setting of community-acquired pneumonia The patient was seen and examined at the bedside. No acute events were reported overnight. The patient is saturating at 99% on 2 L of oxygen. CBC and CMP are unremarkable. The current management plan includes continuation of azithromycin and ceftriaxone, ongoing breathing treatments, and steroids. Due to persistent bradycardia, an echocardiogram will be obtained. Last echo from 2016, which showed mild mitral stenosis. EF of approximately 50 to 55%. Close monitoring will continue. I personally saw and examined the patient and discussed the assessment and plan with the entire medicine team, including my attending , Eduarda Soto M.D. PGY-2 Disclaimer: Despite multiple revisions, due to the dictation software being used, the document bellow may not be free of grammatical errors including phonetic/typographic errors. However, this does not deter from our commitment to providing health care in the patient's best interest in mind. Documentation for date of: 12/07/24 Subjective Subjective Interval history: Overnight admission. Seen and examined at bedside and patient states that she had been experiencing chest discomfort that she describes at pressure/tightness that was associated with activity but on night she presented to ED was significant and have been associated with shortness of breath. She also endorses orthopnea and PND for the last 5 weeks but no significant lower extremity edema, will order echo. BNP and troponins negative. Saturating 99% on 3 L nasal cannula and heart rate noted to be in 50s while sleeping but other vital signs stable. CBC unremarkable, chem panel showed transaminitis that may be due to steroids but will continue to monitor. Exam Vital Signs Temp Pulse Resp BP Pulse Ox O2 Del Method O2 Flow Rate 96.9 F 67 18 121/60 97 Nasal Cannula 3 12/07/24 08:00 12/07/24 08:00 12/07/24 08:00 12/07/24 08:00 12/07/24 08:00 12/07/24 08:00 12/07/24 08:00 Narrative Exam General: AOx3, no acute distress, able to speak full sentences HEENT: NC/AT, mucous membranes moist, bilateral sclera anicteric Cardiovascular: regular rate and rhythm, S1/S2 present, no murmurs appreciated Pulmonary: saturating well on room air, does not appear to be in respiratory distress, wheezing appreciated bilaterally Abdominal: soft, non-tender, non-distended, no rebound/guarding, normal bowel sounds present Musculoskeletal: normal ROM, no peripheral edema Skin: warm and dry, intact, no rashes Neuro: CN II-XII intact, no focal deficits Objective Labs 12/07/24 04:09 12/07/24 04:09 Labs: Laboratory Results - last 24 hr 12/06/24 12/07/24 12/07/24 23:20 01:13 02:02 WBC 8.9 RBC 4.49 Hgb 13.9 Hct 41.5 MCV 92 MCH 31.0 MCHC 33.5 RDW Std Deviation 47.7 H Plt Count 315 D Neut % (Auto) 53 Lymph % (Auto) 38 [place] % (Auto) 6 Eos % (Auto) 2 Baso % (Auto) 0 Neut # (Auto) 4.7 Lymph # (Auto) 3.4 [place] # (Auto) 0.6 Eos # (Auto) 0.2 Baso # (Auto) 0.0 Immature Gran # (Auto) 0.10 H Absolute Nucleated RBC 0.00 Immature Gran % 1 H Nucleated RBC % 0 Puncture Site Right Radial ABG pH 7.37 ABG pCO2 47 ABG pO2 78 L ABG HCO3 27 H ABG O2 Saturation 96 ABG Base Excess 1 FiO2 21 Sodium 143 Potassium 3.9 Chloride 108 H Carbon Dioxide 26.9 Anion Gap 8 BUN 17 Creatinine 1.2 Estim Creat Clear Calc 44.4 L eGFR 50 L BUN/Creatinine Ratio 14 Glucose 108 H D Calculated Osmolality 287 Calcium 8.8 Corrected Calcium 8.8 Magnesium 2.1 Total Bilirubin 0.4 Direct Bilirubin 0.1 AST 15 ALT 23 Alkaline Phosphatase 67 Troponin I < 0.020 B-Natriuretic Peptide 35 Total Protein 6.3 Albumin 4.0 Globulin 2.3 Albumin/Globulin Ratio 1.7 TSH 10.60 H Free T4 1.32 Ur Collection Type Clean Catch Urine Color Colorless A Urine Clarity Clear Urine pH 5.5 Ur Specific [place] 1.013 Urine Protein Negative Urine Glucose (UA) Negative Urine Ketones Negative Urine Blood Trace Urine Nitrite Negative Urine Bilirubin Negative Urine Urobilinogen (Auto) Negative Ur Leukocyte Esterase Negative Urine RBC 3 Urine WBC < 1 Ur Squamous Epith Cells < 1 Urine Bacteria None Ur Culture Indicated? Not Indicated 12/07/24 04:09 WBC 8.2 RBC 4.10 Hgb 12.7 Hct 38.7 MCV 94 MCH 31.0 MCHC 32.8 RDW Std Deviation 48.3 H Plt Count 244 D Neut % (Auto) 89 H Lymph % (Auto) 7 L [place] % (Auto) 3 Eos % (Auto) 0 Baso % (Auto) 0 Neut # (Auto) 7.3 Lymph # (Auto) 0.6 L [place] # (Auto) 0.2 Eos # (Auto) 0.0 Baso # (Auto) 0.0 Immature Gran # (Auto) 0.09 H Absolute Nucleated RBC 0.00 Immature Gran % 1 H Nucleated RBC % 0 Puncture Site ABG pH ABG pCO2 ABG pO2 ABG HCO3 ABG O2 Saturation ABG Base Excess FiO2 Sodium 141 Potassium 4.1 Chloride 106 Carbon Dioxide 25.8 Anion Gap 9 BUN 19 Creatinine 1.2 Estim Creat Clear Calc 49.1 L eGFR 50 L BUN/Creatinine Ratio 16 Glucose 205 H D Calculated Osmolality 289 Calcium 8.2 L Corrected Calcium 8.5 Magnesium 2.1 Total Bilirubin 0.5 Direct Bilirubin AST 411 H ALT 159 H Alkaline Phosphatase 68 Troponin I B-Natriuretic Peptide Total Protein 5.7 Albumin 3.6 Globulin 2.1 L Albumin/Globulin Ratio 1.7 TSH Free T4 Ur Collection Type Urine Color Urine Clarity Urine pH Ur Specific [place] Urine Protein Urine Glucose (UA) Urine Ketones Urine Blood Urine Nitrite Urine Bilirubin Urine Urobilinogen (Auto) Ur Leukocyte Esterase Urine RBC Urine WBC Ur Squamous Epith Cells Urine Bacteria Ur Culture Indicated? ABG Interpretation ABG results: 12/07/24 01:13 ABG pH 7.37 ABG pCO2 47 ABG pO2 78 L ABG HCO3 27 H ABG O2 Saturation 96 ABG Base Excess 1 Quality Measures Quality Measures none Advance care planning discussed with:: patient, legal surragate and sibling Assessment & Plan Assessment Current Active Medications: Generic Name Dose Route Start Last Admin Trade Name Freq PRN Reason Stop Dose Admin Acetaminophen 650 mg 12/07/24 01:17 Acetaminophen 325 Mg Tablet PO 01/06/25 01:16 Q6H PRN Fever >99.5 Acetaminophen 1,000 mg 12/07/24 08:51 Acetaminophen 500 Mg Tablet PO 01/06/25 01:16 Q6H PRN PAIN SCALE 1-3 (mild Azithromycin 250 mg 12/07/24 09:00 12/07/24 08:47 Azithromycin 250 Mg Tablet PO 12/10/24 08:59 250 mg QDAY GÉNESIS Administration Ceftriaxone Sodium/Dextrose 1 gm in 50 mls @ 100 mls/hr 12/07/24 21:00 Rocephin/D5w 1gm Iv Premix IV 12/14/24 20:59 QDAY@2100 GÉNESIS Levalbuterol HCl 1.25 mg 12/07/24 07:00 12/07/24 06:43 Levalbuterol Rt 1.25 Mg/0.5 Ml Nebu INH 01/06/25 06:59 1.25 mg Q6HRRT GÉNESIS Administration Levalbuterol HCl 1.25 mg 12/07/24 01:57 Levalbuterol Rt 1.25 Mg/0.5 Ml Nebu INH 01/06/25 01:56 Q2H PRN WHEEZING Methylprednisolone Sodium Succinate 40 mg 12/07/24 09:00 12/07/24 08:47 Methylprednisolone Sod Succ 40 Mg Vial IVP 12/14/24 08:59 40 mg QDAY GÉNESIS Administration Nicotine 21 mg 12/07/24 09:00 12/07/24 08:48 Nicotine Patch 21 Mg/24 Hr Patch.Td24 TOP 01/06/25 08:59 21 mg QDAY GÉNESIS Administration Ondansetron HCl 4 mg 12/07/24 01:17 12/07/24 02:27 Ondansetron Inj 2 Mg/Ml Inj 2 Ml IVP 01/06/25 01:16 4 mg Q6H PRN Administration NAUSEA OR VOMITING Protocol Rivaroxaban 10 mg/ Rivaroxaban 15 mg 12/07/24 08:00 12/07/24 08:47 5 mg PO 12/28/24 07:59 15 mg WBR GÉNESIS Administration Sennosides 1 tab 12/07/24 09:00 12/07/24 08:47 Senna Tablet PO 01/06/25 08:59 1 tab QDAY GÉNESIS Administration Protocol Sodium Chloride 3 ml 12/07/24 01:57 Sodium Chloride Rt Susu 0.9% 3 Ml Nebu INH 01/06/25 01:56 PRN PRN SOLN Plan Adlea Singh is a 64-year-old female with a past medical history of COPD (not on home O2), asthma, remote history of meth use, current smoker, history of clot and right IJ who is admitted for acute on chronic hypoxic respiratory failure. #Acute hypoxic respiratory failure likely secondary to #COPD exacerbation/asthma #Community-acquired pneumonia Presents after recently being discharged on 12/05 for COPD exacerbation. However, as soon as she got home she states she felt short of breath, lethargic, and slept through most of the day. Has had no fever or chills but chest XR showed early pneumonia in right base. ? Azithromycin and ceftriaxone (12/07-) ? Levalbuterol and ipratropium scheduled ? Solu-Medrol 40 mg IV daily ? Follow cultures ? Keep SpO2 between 88 to 92% #? CHF Endorses orthopnea and PND but no lower extremity swelling. BNP negative, troponins negative. ? Follow-up echo #History of clot in right IJ ? Xarelto 15 mg daily Hospital management: Disposition: COPD exacerbation, echo pending Diet: Low-sodium Lines: PIV DVT prophylaxis: Xarelto CODE STATUS: full code ----- Plan discussed with attending physician Dr. Radha Armando MD PGY-1 Internal Medicine Attending Provider Attestation/Addendum I have examined the patient, reviewed labs and imaging findings, discussed the case with the resident(s), and reviewed entered orders. I agree with the plan of care as outlined in this note, with these additional summaries/recommendations: Patient seen at bedside. She reports improvement in shortness of breath. She is requiring minimal O2 with an O2 saturation 99% on 2 L nasal cannula. Continue breathing treatments, steroids, and azithromycin/Rocephin for pneumonia. Chest x-ray shows early pneumonia right base and continue antibiotics. Counseled patient on inhaler technique. Patient also endorses orthopnea and paroxysmal nocturnal dyspnea. She denies a history of heart failure but thinks she was told she has a problem with a heart valve. Order echocardiogram. Patient also noted to have sinus bradycardia which appears asymptomatic at this time. We will continue to monitor and if worsens or patient becomes symptomatic then we will consult cardiology. Continue Xarelto for history of right IJ venous thrombosis. Dr. Radha MD
[2024-12-07] MEDS: ACETAMINOPHEN 500 MG TABLET 1000 MG PO (12:04)
[2024-12-07] MEDS: IPRATROPIUM RT 0.5 MG/ 2.5 ML NEBU INH ×2 (12:17→18:11)
--- NOTE | 2024-12-07 13:22 | PC.SS ---
Walkers The diagnosis creates mobility limitation that significantly impairs ability to participate in the patients activities of daily living either in their entirety, or in a reasonable time frame. Also the patient is able to safely use the walker and the patient?s mobility is sufficiently resolved with the use of the walker and cane has been ruled out.
--- NOTE | 2024-12-07 13:51 | PC.SS ---
SS follow up note; SS was contacted by Tamanna from PT. Patient is needing a Rollator walker, Pending DME insurance verification at the time. Echo pending, patient is on IV ABX. Patient will discharge back home when medically cleared.
[2024-12-07] MEDS: traMADol HCL 50 MG TABLET PO (16:12)
[2024-12-08] VITALS (11 sets, daily range): BP systolic 105–157; BP diastolic 63–91; PULSE 50–76; RESP 14–99; TEMP 36.1–36.8; O2SAT 93–98
[2024-12-08] MEDS: IPRATROPIUM RT 0.5 MG/ 2.5 ML NEBU INH ×4 (00:49→18:22)
[2024-12-08] MEDS: LEVALBUTEROL RT 1.25 MG/0.5 ML NEBU INH ×4 (00:49→18:22)
[2024-12-08 05:14] LABS: Basophils % (Auto) 0 % (0-2.5); Eosinophils % (Auto) 0 % (0-10); Hematocrit 37.7 % (36.0-46.0); Hemoglobin 12.5 g/dL (12.0-16.0); Immature Granulocytes % (Auto) 1 % (0-0); Immature Granulocytes Auto 0.08 Thou/mm3 (0.00-0.00); Lymphocytes # (Auto) 1.1 Thou/mm3 (1.0-4.8); Lymphocytes % (Auto) 9 % (10-50); Mean Corpuscular HGB Conc 33.2 g/dl (31.0-37.0); Mean Corpuscular Hemoglobin 30.8 pg (25.0-35.0); Mean Corpuscular Volume 93 fL (80-100); Monocytes # (Auto) 0.7 Thou/mm3 (0.0-0.8); Monocytes % (Auto) 6 % (0-12); Neutrophils # (Auto) 9.6 Thou/mm3 (1.8-7.7); Neutrophils % (Auto) 84 % (37-80); Nucleated Red Blood Cell % 0 /100 WBC (0); Platelet Count 263 Thou/mm3 (140-440); RDW Standard Deviation 47.4 fL (36.4-46.3); Red Blood Count 4.06 Miln/mm3 (4.00-5.20); White Blood Count 11.4 Thou/mm3 (3.6-11.0)
[2024-12-08 05:35] LABS: Alanine Aminotransferase 253 U/L (10-49); Albumin, Serum 3.6 gm/dL (3.4-4.8); Albumin/Globulin Ratio 1.9 (1.2-2.2); Alkaline Phosphatase 75 U/L (46-116); Anion Gap 5 (7-16); Aspartate Amino Transferase 92 U/L (0-34); BUN/Creatinine Ratio 13 Ratio (12-20); Bilirubin,Total 0.2 mg/dL (0.3-1.2); Blood Urea Nitrogen 14 mg/dL (9-23); Calcium 8.7 mg/dL (8.3-10.6); Carbon Dioxide 30.6 mMol/L (20.0-31.0); Chloride 107 mMol/L (98-107); Creatinine (Component) 1.1 mg/dL (0.6-1.3); Estimated Creatinine Clearance 53.6 mL/min (>60); Globulin 1.9 gm/dL (2.3-3.5); Glucose 129 mg/dL (74-106); Magnesium 2.3 mg/dL (1.6-2.6); Osmolality,Calculated 287 (275-295); Phosphorous 3.7 mg/dL (2.4-5.1); Potassium 3.7 mMol/L (3.4-5.1); Sodium 143 mMol/L (136-145); Total Protein 5.5 gm/dL (5.7-8.2); eGFR 56 See Note
[2024-12-08] MEDS: AZITHROMYCIN 250 MG TABLET PO (08:17)
[2024-12-08] MEDS: RIVAROXABAN 10 MG, RIVAROXABAN 5 MG 15 MG PO (08:17)
[2024-12-08] MEDS: NICOTINE PATCH 21 MG/24 HR PATCH.TD24 TOP (08:18)
[2024-12-08] MEDS: SENNA TABLET 1 TAB PO (08:18)
--- NOTE | 2024-12-08 08:20 | ESPR_ITS ---
Documentation for date of: 12/08/24 Subjective Subjective Interval history: The patient was seen and examined at the bedside. No acute overnight events reported. Labs Reviewed this morning. CBC revealed mild leukocytosis, likely secondary to steroid use.The patient is hemodynamically stable, saturating at 95% on room air. Plan to initiate home Trilogy Patient is currently being treated with azithromycin and ceftriaxone for presumed community-acquired pneumonia (CAP). Patient reported a remote history of [place] Fever (coccidioidomycosis) diagnosed many years ago. She recalls being prescribed medication but is unsure if the treatment course was completed. IgM serology is pending; we will reassess based on those results. Patient remains persistently Bradicardia but is asymptomatic at this time. Echocardiogram is pending to further evaluate the etiology Plan to continue current management. PT worked with the patient and recommended home with home health. Exam Vital Signs Temp Pulse Resp BP Pulse Ox O2 Del Method O2 Flow Rate 97.2 F 66 16 105/65 94 L Room Air 3 12/08/24 08:00 12/08/24 08:00 12/08/24 08:00 12/08/24 08:00 12/08/24 08:00 12/08/24 08:00 12/08/24 00:00 Narrative Exam General: AOx3, no acute distress, able to speak full sentences HEENT: NC/AT, mucous membranes moist, bilateral sclera anicteric Cardiovascular: regular rate and rhythm, S1/S2 present, no murmurs appreciated Pulmonary: saturating well on room air, does not appear to be in respiratory distress, wheezing appreciated bilaterally Abdominal: soft, non-tender, non-distended, no rebound/guarding, normal bowel sounds present Musculoskeletal: normal ROM, no peripheral edema Skin: warm and dry, intact, no rashes Neuro: CN II-XII intact, no focal deficits Objective Labs 12/08/24 05:00 12/08/24 05:00 Labs: Laboratory Results - last 24 hr 12/08/24 05:00 WBC 11.4 H RBC 4.06 Hgb 12.5 Hct 37.7 MCV 93 MCH 30.8 MCHC 33.2 RDW Std Deviation 47.4 H Plt Count 263 Neut % (Auto) 84 H Lymph % (Auto) 9 L [place] % (Auto) 6 Eos % (Auto) 0 Baso % (Auto) 0 Neut # (Auto) 9.6 H Lymph # (Auto) 1.1 [place] # (Auto) 0.7 Eos # (Auto) 0.0 Baso # (Auto) 0.0 Immature Gran # (Auto) 0.08 H Absolute Nucleated RBC 0.00 Immature Gran % 1 H Nucleated RBC % 0 Sodium 143 Potassium 3.7 Chloride 107 Carbon Dioxide 30.6 Anion Gap 5 L BUN 14 Creatinine 1.1 Estim Creat Clear Calc 53.6 L eGFR 56 L BUN/Creatinine Ratio 13 Glucose 129 H D Calculated Osmolality 287 Calcium 8.7 Corrected Calcium 9.0 Phosphorus 3.7 Magnesium 2.3 Total Bilirubin 0.2 L AST 92 H ALT 253 H Alkaline Phosphatase 75 Total Protein 5.5 L Albumin 3.6 Globulin 1.9 L Albumin/Globulin Ratio 1.9 ABG Interpretation ABG results: 12/07/24 01:13 ABG pH 7.37 ABG pCO2 47 ABG pO2 78 L ABG HCO3 27 H ABG O2 Saturation 96 ABG Base Excess 1 Quality Measures Quality Measures none Advance care planning discussed with:: patient Assessment & Plan Assessment Current Active Medications: Generic Name Dose Route Start Last Admin Trade Name Freq PRN Reason Stop Dose Admin Acetaminophen 650 mg 12/07/24 01:17 Acetaminophen 325 Mg Tablet PO 01/06/25 01:16 Q6H PRN Fever >99.5 Acetaminophen 1,000 mg 12/07/24 08:51 12/07/24 12:04 Acetaminophen 500 Mg Tablet PO 01/06/25 01:16 1,000 mg Q6H PRN Administration PAIN SCALE 1-3 (mild Azithromycin 250 mg 12/07/24 09:00 12/07/24 08:47 Azithromycin 250 Mg Tablet PO 12/10/24 08:59 250 mg QDAY GÉNESIS Administration Ceftriaxone Sodium/Dextrose 1 gm in 50 mls @ 100 mls/hr 12/07/24 21:00 12/07/24 20:35 Rocephin/D5w 1gm Iv Premix IV 12/14/24 20:59 100 mls/hr QDAY@2100 GÉNESIS Administration Ipratropium [place] 0.5 mg 12/07/24 13:00 12/08/24 06:38 Ipratropium Rt 0.5 Mg/ 2.5 Ml Nebu INH 01/06/25 12:59 0.5 mg Q6HRRT GÉNESIS Administration Levalbuterol HCl 1.25 mg 12/07/24 07:00 12/08/24 06:39 Levalbuterol Rt 1.25 Mg/0.5 Ml Nebu INH 01/06/25 06:59 1.25 mg Q6HRRT GÉNESIS Administration Levalbuterol HCl 1.25 mg 12/07/24 01:57 Levalbuterol Rt 1.25 Mg/0.5 Ml Nebu INH 01/06/25 01:56 Q2H PRN WHEEZING Methylprednisolone Sodium Succinate 40 mg 12/07/24 09:00 12/07/24 08:47 Methylprednisolone Sod Succ 40 Mg Vial IVP 12/14/24 08:59 40 mg QDAY GÉNESIS Administration Nicotine 21 mg 12/07/24 09:00 12/07/24 08:48 Nicotine Patch 21 Mg/24 Hr Patch.Td24 TOP 01/06/25 08:59 21 mg QDAY GÉNESIS Administration Ondansetron HCl 4 mg 12/07/24 01:17 12/07/24 02:27 Ondansetron Inj 2 Mg/Ml Inj 2 Ml IVP 01/06/25 01:16 4 mg Q6H PRN Administration NAUSEA OR VOMITING Protocol Rivaroxaban 10 mg/ Rivaroxaban 15 mg 12/07/24 08:00 12/07/24 08:47 5 mg PO 12/28/24 07:59 15 mg WBR GÉNESIS Administration Sennosides 1 tab 12/07/24 09:00 12/07/24 08:47 Senna Tablet PO 01/06/25 08:59 1 tab QDAY GÉNESIS Administration Protocol Sodium Chloride 3 ml 12/07/24 01:57 Sodium Chloride Rt Susu 0.9% 3 Ml Nebu INH 01/06/25 01:56 PRN PRN SOLN Tramadol HCl 50 mg 12/07/24 15:57 12/07/24 16:12 Tramadol Hcl 50 Mg Tablet PO 12/12/24 15:56 50 mg Q6HR PRN Administration PAIN SCALE 4-10(Mod-Sev Plan Adela Singh is a 64-year-old female with a past medical history of COPD (not on home O2), asthma, remote history of meth use, current smoker, history of clot and right IJ who is admitted for acute on chronic hypoxic respiratory failure. #Acute hypoxic respiratory failure likely secondary to COPD exacerbation/asthma resolved #COPD exacerbation/asthma #Community-acquired pneumonia Presents after recently being discharged on 12/05 for COPD exacerbation. However, as soon as she got home she states she felt short of breath, lethargic, and slept through most of the day. Has had no fever or chills but chest XR showed early pneumonia in right base. ? Azithromycin and ceftriaxone (12/07-) ? Levalbuterol and ipratropium scheduled ? Trelegy restarted ? Solu-Medrol 40 mg IV daily ? Follow cultures ? Will follow-up with IgM ? Keep SpO2 between 88 to 92% #Asymptomatic bradycardia Patient denies any dizziness, shortness of breath at this point, is not on any beta-blockers EKG showed sinus bradycardia, no other abnormalities was noted ? Will follow-up with echo #History of clot in right IJ ? Xarelto 15 mg daily Hospital management: Disposition: COPD exacerbation, echo pending Diet: Low-sodium Lines: PIV DVT prophylaxis: Xarelto CODE STATUS: full code Patient care was discussed with attending physician Dr. Eric Soto MD PGY-2 Attending Provider Attestation/Addendum I attest that I was physically present for the evaluation, physical examination, lab and imaging review of the patient with the residents. I discussed the case with the residents and agree with the findings and plans of care as documented above. At bedside today, patient appears comfortable, saturating well on room air. Denies any new complaints. Noted to have bilateral wheezing on examination. Continues to be on azithromycin and Rocephin. Levalbuterol and ipratropium in place, resumed her home Trelegy. Continues to be on IV Solu-Medrol. Culture results pending. Awaiting echocardiography and cocci serology results. If completed, anticipate discharge in next 24 to 48 hours. Boubacar Reyes MD
--- NOTE | 2024-12-08 10:20 | PC.SS ---
SS follow up note; Echo pending, on IV ABX. Patient will discharge home with when medically cleared.
[2024-12-08 12:44] LABS: Cocci Serology, IgM Negative (Negative)
[2024-12-08] MEDS: TRELEGY ELLIPTA INH (14:04)
[2024-12-08] MEDS: cefTRIAXone/D5w 1gm IV premix 1 GM/50 ML BAG IV (20:40)
[2024-12-08] MEDS: traMADol HCL 50 MG TABLET PO (20:41)
[2024-12-09] VITALS (11 sets, daily range): BP systolic 109–156; BP diastolic 67–78; PULSE 45–77; RESP 12–97; TEMP 36.1–36.6; O2SAT 94–100
[2024-12-09] MEDS: IPRATROPIUM RT 0.5 MG/ 2.5 ML NEBU INH ×3 (00:46→13:26)
[2024-12-09] MEDS: LEVALBUTEROL RT 1.25 MG/0.5 ML NEBU INH ×3 (00:46→13:26)
[2024-12-09 05:12] LABS: Basophils % (Auto) 0 % (0-2.5); Eosinophils % (Auto) 0 % (0-10); Hematocrit 37.6 % (36.0-46.0); Hemoglobin 12.4 g/dL (12.0-16.0); Immature Granulocytes % (Auto) 2 % (0-0); Immature Granulocytes Auto 0.16 Thou/mm3 (0.00-0.00); Lymphocytes # (Auto) 1.8 Thou/mm3 (1.0-4.8); Lymphocytes % (Auto) 18 % (10-50); Mean Corpuscular Volume 94 fL (80-100); Monocytes # (Auto) 0.5 Thou/mm3 (0.0-0.8); Monocytes % (Auto) 5 % (0-12); Neutrophils # (Auto) 7.7 Thou/mm3 (1.8-7.7); Neutrophils % (Auto) 75 % (37-80); Nucleated Red Blood Cell % 0 /100 WBC (0); Platelet Count 249 Thou/mm3 (140-440); RDW Standard Deviation 50.5 fL (36.4-46.3); White Blood Count 10.2 Thou/mm3 (3.6-11.0)
[2024-12-09 05:59] LABS: Alanine Aminotransferase 162 U/L (10-49); Albumin, Serum 3.4 gm/dL (3.4-4.8); Albumin/Globulin Ratio 1.8 (1.2-2.2); Alkaline Phosphatase 68 U/L (46-116); Anion Gap 7 (7-16); Aspartate Amino Transferase 28 U/L (0-34); BUN/Creatinine Ratio 15 Ratio (12-20); Bilirubin,Total 0.2 mg/dL (0.3-1.2); Blood Urea Nitrogen 16 mg/dL (9-23); Calcium 8.8 mg/dL (8.3-10.6); Calcium (Corrected) 9.3 mg/dL (8.5-10.1); Carbon Dioxide 30.2 mMol/L (20.0-31.0); Chloride 106 mMol/L (98-107); Creatinine (Component) 1.1 mg/dL (0.6-1.3); Estimated Creatinine Clearance 53.6 mL/min (>60); Globulin 1.9 gm/dL (2.3-3.5); Glucose 107 mg/dL (74-106); Osmolality,Calculated 286 (275-295); Phosphorous 3.7 mg/dL (2.4-5.1); Potassium 3.7 mMol/L (3.4-5.1); Sodium 143 mMol/L (136-145); Total Protein 5.3 gm/dL (5.7-8.2); eGFR 56 See Note
--- NOTE | 2024-12-09 07:34 | ECHO_ITS ---
Transthoracic Echo Report Ht (in): 64 Wt (lb): 186 Exam Location: Echo Lab Status: Inpatient Start Up Specialist: Fany Monteiro Indications: Procedure Performed: BP: 110 / 67 HR: 49 Technical Quality: Technically Difficult Study MEASUREMENTS (Male / Female) Normal Values 2D ECHO LV Diastolic Diameter PLAX 4.3 cm 4.2 - 5.9 / 3.9 - 5.3 cm LV Systolic Diameter PLAX 2.5 cm IVS Diastolic Thickness 0.8 cm 0.6 - 1.0 / 0.6 - 0.9 cm LVPW Diastolic Thickness 0.6 cm 0.6 - 1.0 / 0.6 - 0.9 cm LV Relative Wall Thickness 0.3 LVOT Diameter 2.0 cm LA Volume Index 35.4 cm?/m? 16 - 28 cm?/m? Ascending Aorta Diameter 2.4 cm DOPPLER AV Peak Velocity 151.0 cm/s AV Peak Gradient 9.1 mmHg LVOT Peak Velocity 105.0 cm/s LVOT Peak Gradient 4.4 mmHg AV Area Cont Eq pk 2.2 cm? MV Area PHT 2.6 cm? Mitral E Point Velocity 101.0 cm/s Mitral A Point Velocity 86.9 cm/s Mitral E to A Ratio 1.2 LV E' Lateral Velocity 6.6 cm/s Mitral E to LV E' Lateral Ratio 15.2 LV E' Septal Velocity 6.0 cm/s Mitral E to LV E' Septal Ratio 16.9 TR Peak Velocity 300.0 cm/s TR Peak Gradient 36.0 mmHg PV Peak Velocity 78.2 cm/s PV Peak Gradient 2.4 mmHg FINDINGS Left Ventricle Normal left ventricular size, wall thickness, systolic function with no obvious regional wall motion abnormalities. Normal left ventricular diastolic filling pattern for age. The ejection fraction is visually estimated at 55 %. Right Ventricle The right ventricle is normal in size and systolic function. The estimated right ventricular systolic pressure, 36 mmHg. RAP 5mmHg. Echogenic structure visualized in the apex of the right ventricle. Can not rule out thrombus vs moderator band. Left Atrium The left atrium is mildly dilated. Right Atrium The right atrium is normal by two-dimensional imaging, color flow and Doppler imaging with no structural abnormalities, no thrombus formation present. Atrial Septum The interatrial septum appears normal with no evidence of a shunt. Aorta The aorta is normal by two-dimensional, color flow and Doppler interrogation. Mitral Valve The mitral valve is normal by two-dimensional, color flow and Doppler interrogation. There is no significant mitral valve regurgitation, stenosis or prolapse. Aortic Valve The aortic valve is trileaflet and normal by two-dimensional, color flow and Doppler interrogation. There is no significant aortic valve regurgitation. Tricuspid Valve The tricuspid valve is normal by two-dimensional, color flow and Doppler interrogation. There is mild to moderate tricuspid regurgitation. Pulmonic Valve The pulmonic valve is not well visualized. There is no significant pulmonic valve regurgitation. Vessels The pulmonary artery appears normal. The inferior vena cava is normal. The hepatic veins are dilated. Pericardium There is a trivial pericardial effusion. CONCLUSIONS Indications: SOB Normal LV size and function with an estimated EF of 60 to 65%. Stage I diastolic dysfunction. Normal RV size and function. Prominent moderator band noted. Mildly elevated RVSP 35-40 mmHg. Mild to moderate TR. mild aortic valve sclerosis without stenosis. Trace MR Mildly dilated LA. Trivial Pericardial Effusion. Yann Pizano (Electronically Signed) Final Date: 09 December 2024 15:43
[2024-12-09] MEDS: RIVAROXABAN 10 MG, RIVAROXABAN 5 MG 15 MG PO (08:35)
[2024-12-09] MEDS: AZITHROMYCIN 250 MG TABLET PO (08:36)
[2024-12-09] MEDS: SENNA TABLET 1 TAB PO (08:36)
[2024-12-09] MEDS: NICOTINE PATCH 21 MG/24 HR PATCH.TD24 TOP (08:37)
[2024-12-09] MEDS: TRELEGY ELLIPTA INH (09:35)
[2024-12-09 13:25] LABS: Cocci Serology, IgG Negative (Negative)
--- NOTE | 2024-12-09 14:36 | PC.SS ---
SS follow up note; Echo reading pending. Patient will discharge home with HH after Echo is read.
--- NOTE | 2024-12-09 16:37 | PD.RESDS ---
Planned Discharge Date 12/09/24 DS: Providers Provider Date of admission: 12/07/24 01:17 Primary care physician: Physician No Primary/Family Admitting Provider: Heber Noland MD Attending Provider on Admission: Boubacar Reyes MD Consults: 12/07/24 06:13 Referral Physical Therapy Routine Comment: Physician Instructions: Attending Provider on DC: Elfego Armando MD Discharging Provider: Elfego Armando MD DS: Diagnosis Problem List Completed Was Problem List Reviewed/Reconciled?: Yes Hospital Course Hospital Course Hospital course: Adela Singh is a 64-year-old female with a past medical history of COPD (not on home O2), asthma, remote history of meth use, current smoker, history of clot and right IJ who is admitted for acute on chronic hypoxic respiratory failure. She was recently discharged on 12/05 for COPD exacerbation but states that her sooner she got home she started feeling short of breath, became lethargic, and Sette but most of the day. Due to symptoms she presented to the ED. Of note, she also endorses orthopnea and PND for the last 5 weeks but no significant lower extremity edema but echo was obtained while here inpatient and showed EF 60 to 65%, stage I diastolic dysfunction. Mildly elevated RVSP at 35 to 40 mmHg. No significant valvulopathy is noted. On admission, patient was started on ceftriaxone and azithromycin as CXR showed right-sided pneumonia as well as levalbuterol and ipratropium breathing treatments due to albuterol allergy, Solu-Medrol 40 g daily. Throughout hospitalization, no acute events occurred and patient was able to be transition to room air on hospitalization day 2 saturating 99%. She developed no fevers and was hemodynamically stable. CBC showed spike and WBC of 11.4 on 12/08 but downtrended on following day, likely secondary to steroids. CHEM panel largely unremarkable other than transaminitis but was downtrending significantly on discharge, suspect to be secondary to antibiotics. Otherwise, patient will be discharged with 3 more days to finish antibiotic course for pneumonia, 3 more days of steroids, and leave albuterol given albuterol allergy with strict return precautions and recommendations to follow with PCP within 1 to 2 weeks of discharge. Diagnoses during admission: #Acute hypoxic respiratory failure likely secondary to COPD exacerbation/asthma, resolved #COPD exacerbation/asthma #Community-acquired pneumonia #Asymptomatic bradycardia #History of clot in right IJ Discharge instructions: ? Take amoxicillin-clavulanate for three more days to finish antibiotic course ? Take prednisone for 3 more days to finish steroid dose ? Take levalbuterol instead of albuterol as needed for shortness of breath or wheezing ? Continue taking all other home medications as prescribed ? Follow-up with PCP within 1-2 weeks of discharge ? If you do not have a PCP, you can follow-up at the [facility] (you can call [phone] to make an appointment) ? If you wish to follow-up with Dr. Armando, schedule appointment on Saturday afternoons ? Return to ED if symptoms worsen or recur ----- Plan discussed with attending physician Dr. Eric Armando MD PGY-1 Internal Medicine Time Spent with Patient Time attestation: Total time spent providing and/or coordinating discharge services: Time spent: Greater than 30 minutes Home Health Home Health Referral Orders: 12/08/24 09:07 Home Health Referral Routine Reason For Exam: Generalised weakness Home-Bound The patient must either because of illness or injury, need the aid of supportive devices such as crutches, canes, wheelchairs, and walkers; the use of special transportation; or the assistance of another person in order to leave their place of residence; OR have a condition such that leaving his or her home is medically contraindicated. In addition, the patient also meets the following criteria: patient is normally unable to leave the home and leaving home requires considerable taxing effort. Addendum to Home Health Certification Practitioner's Certification: I certify that the patient has been under my care in the hospital and the care of attending physician (see below). We had a [id number] encounter on (see date below). My clinical findings indicate that the patient is home bound per the above criteria and the Home Health Services noted in these orders are medically necessary. The primary reason for the [id number] encounter is related to the fact that the patient requires home health services. Date Certifying [id number] Physician Encounter: 12/07/24 Physician's Name who will Assume Oversight for HH Services: Physician No Primary/Family SUPERVISOR SMOKE CONTROL - Community Resources: No PT to Evaluate: Yes PT to evaluate and provide a treatmnet plan to increase patient's mobility and strength. Wound Care: No IV Therapy: No RN Safety Evaluation: Yes RN to evaluate and create a plan of care that will produce positive outcomes. Palliative Treatment: No Palliative treatment and evaluate the need for hospice. Home Health Aide - Personal Care: No Home Health Aide to assist with any ADL's. Exam Vital Signs Temp Pulse Resp BP Pulse Ox O2 Del Method O2 Flow Rate 97.8 F 64 13 109/67 99 Room Air 3 12/09/24 11:45 12/09/24 15:50 12/09/24 13:27 12/09/24 11:45 12/09/24 13:27 12/09/24 11:45 12/08/24 00:00 Narrative Exam General: AOx3, no acute distress, able to speak full sentences HEENT: NC/AT, mucous membranes moist, bilateral sclera anicteric Cardiovascular: regular rate and rhythm, S1/S2 present, no murmurs appreciated Pulmonary: saturating well on room air, does not appear to be in respiratory distress, no wheezing appreciated Abdominal: soft, non-tender, non-distended, no rebound/guarding, normal bowel sounds present Musculoskeletal: normal ROM, no peripheral edema Skin: warm and dry, intact, no rashes Neuro: CN II-XII intact, no focal deficits Discharge Plan Plan Patient Disposition: Home w/HOME HEALTH Patient condition on transfer: Stable Care Plan Goals: ? Take amoxicillin-clavulanate for three more days to finish antibiotic course ? Take prednisone for 3 more days to finish steroid dose ? Take levalbuterol instead of albuterol as needed for shortness of breath or wheezing ? Continue taking all other home medications as prescribed ? Follow-up with PCP within 1-2 weeks of discharge ? If you do not have a PCP, you can follow-up at the [facility] (you can call [phone] to make an appointment) ? If you wish to follow-up with Dr. Armando, schedule appointment on Saturday afternoons ? Return to ED if symptoms worsen or recur Prescriptions/Referrals Prescriptions/Med Rec: New prednisone 20 mg tablet 40 mg PO BID 3 Days Qty: 12 0RF levalbuterol tartrate 45 mcg/actuation HFA aerosol inhaler 2 inh inhalation Q6H PRN (Reason: shortness of breath or wheezing) Qty: 15 0RF azithromycin 500 mg tablet 500 mg PO QDAY 3 Days Qty: 3 0RF amoxicillin-pot clavulanate 875-125 mg tablet 1 tab PO Q12H 3 Days Qty: 6 0RF Continued quetiapine 300 mg tablet 300 mg PO 1XD escitalopram oxalate 10 mg tablet 10 mg PO 1XD Xarelto 15 mg tablet 15 mg PO Q24H lisinopril 20 mg tablet 20 mg PO QDAY Qty: 30 0RF nicotine 14 mg/24 hr patch 24 hour 14 mg topical DAILY Qty: 14 0RF Trelegy Ellipta 100-62.5-25 mcg blister with device 1 inh inhalation QDAY Qty: 28 0RF Discontinued albuterol sulfate 2.5 mg /3 mL (0.083 %) solution for nebulization 2.5 mg inhalation QID PRN (Reason: shortness of breath or wheezing) Qty: 90 0RF ProAir RespiClick 90 mcg/actuation aerosol powdr breath activated 2 inh inhalation QID PRN (Reason: shortness of breath or wheezing) Qty: 1 0RF diphenhydramine HCl 50 mg capsule 50 mg PO BID Qty: 10 0RF meloxicam 15 mg tablet 15 mg PO QDAY Qty: 20 0RF azithromycin 500 mg tablet 500 mg PO QDAY 3 Days Qty: 3 0RF prednisone 20 mg tablet 20 mg PO QDAY Qty: 5 0RF Referrals: No Primary/Family,Physician [Primary Care Provider] - Patient/Caregiver Discharge Instructions Print Language: Czech Stand Alone Forms: Sabrina Award Info., Patient Portal Info Letter Discharge Order Discharge Orders: Discharge (Routine); Ordered 12/09/24 Ordered By: Boubacar Reyes Quality Discharge Quality Measures VTE prophylaxis Attestestation Attestation I attest that I was physically present for the evaluation, physical examination, lab and imaging review of the patient with the residents. I discussed the case with the residents and agree with the findings and plans of care as documented above. Boubacar Reyes MD
--- NOTE | 2024-12-09 18:33 | PC.RT ---
tx not given pt being discharged. pt refused
== END 2024-12-09 17:56 | disposition home health service (06) | DRG 190 ==
LOC: SERX 12-07 00:52 → SERHOLD 12-07 02:16 → S3NX 12-07 06:43
PROVIDERS: Student in an Organized Health Care Education/Training Program; Admitting Provider Student in an Organized Health Care Education/Training Program; Emergency Provider Emergency Medicine; Visit Provider Student in an Organized Health Care Education/Training Program
DX: J44.1 Chronic obstructive pulmonary disease with (acute) exacerbation (principal); J18.9 Pneumonia, unspecified organism; J96.01 Acute respiratory failure with hypoxia; F17.200 Nicotine dependence, unspecified, uncomplicated; J44.0 Chronic obstructive pulmonary disease with (acute) lower respiratory infection; I10 Essential (primary) hypertension; Z79.01 Long term (current) use of anticoagulants; Z86.718 Personal history of other venous thrombosis and embolism; Z88.8 Allergy status to other drugs, medicaments and biological substances
CPT/HCPCS: 36415; 36600; 71045; 80053; 81001; 82248; 82803; 83735; 83880; 84100; 84439; 84443; 84484; 85025; 86331; 86635; 87081; 87400; 87811; 89220; 93005; 93225; 93306; 94640; 96365; 96366; 96367; 96375; 96376; 97162; 99285; J0696; J1956; J2270; J2405; J2919; A9270

== ENCOUNTER 2025-03-10 12:30 | Emergency (ER) | payer MEDICARE, MEDICAID, SELFPAY ==
[2025-03-10 12:59] VITALS: BMI 26.3
[2025-03-10 13:00] VITALS: BP 184/92; PULSE 53; RESP 18; TEMP 36.9; O2SAT 96
--- NOTE | 2025-03-10 13:04 | XR_ITS ---
Examination: Shoulder,right, 3 views Technique: Shoulder AP internal rotation, AP external rotation, Y view shoulder, 3 views Exam date and time :March 10, 2025 1304 hours INDICATIONS: Right shoulder pain beginning one week ago. FINDINGS: Moderate osteopenia. Moderate osteoarthritis glenohumeral joint and acromioclavicular joint. No shoulder fracture or dislocation IMPRESSION: Moderate osteoarthritis
[2025-03-10] MEDS: KETOROLAC INJ 30 MG/ML VIAL IM (13:20)
--- NOTE | 2025-03-10 13:57 | EDNOTE_ITS ---
<Statement entered by Stephanie Ward MD - 03/29/25 06:06> As co-signing physician, I was present and available for consult prn. I concur with the plan and care as documented by the midlevel provider. Upper Extremity Injury RME/HPI General Chief Complaint: Extremity Injury, Upper Stated Complaint: RIGHT ARM PAIN/BURNING RAD RIGHT CLAVICLE/THROAT Time Seen by Provider: 03/10/25 13:02 Arrival date/time: 03/10/25 12:30 65-year-old female presents to the emergency department complaint of right upper arm pain patient reports pain worse with movement ongoing for last couple of weeks patient reports no recent injury. Patient ports no chest pain or shortness of breath no headache dizziness or weakness. Limitations: no limitations Related Data Home Medications ?Medication ?Instructions ?Recorded ?Confirmed escitalopram oxalate 10 mg tablet 10 mg PO 1XD 5 12/07/24 quetiapine 300 mg tablet 300 mg PO 1XD 12/05/2412/07 rivaroxaban 15 mg tablet (Xarelto) 15 mg PO Q24H 12/0512/07/24 Previous Rx's ?Medication ?Instructions ?Recorded fluticasone fur. 100 mcg-umeclid 1 inh inhalation QDAY #28 ea 12/05/24 62.5 mcg-vilant 25 mcg inhalat.powder (Trelegy Ellipta) lisinopril 20 mg tablet 20 mg PO QDAY #30 tabs 12/05 nicotine 14 mg/24 hr daily 14 mg topical DAILY #14 ea 12/05/24 transdermal patch levalbuterol tartrate 45 2 inh inhalation Q6H PRN bennie rtness 12/09/24 mcg/actuation aerosol inhaler of breath or wheezing #1 5 grams cyclobenzaprine 10 mg tablet 10 mg PO TID PRN muscle s pasm 10 03/10/25 days #30 tab-caps meloxicam 7.5 mg tablet 7.5 mg PO QDAY 7 days #7 tab s 03/10/25 Allergies Allergy/AdvReac Type Severity Reaction Status Date / Time metronidazole Allergy Severe RASH Verified 12/04/24 19:56 povidone-iodine Allergy Severe RASH, Verified 12/04/24 19:56 SWELLING albuterol Allergy Verified 12/04/24 20:14 Review of Systems Review of Systems Systems Reviewed: All systems reviewed, normal except as documented Constitutional Constitutional: Reports system reviewed and no additional complaints, except as documented, Denies fever(s) and Denies headache(s) Eyes Eyes: Reports system reviewed and no additional complaints, except as documented and Denies blurry vision ENT Ears, Nose, Mouth, and Throat: Reports system reviewed and no additional complaints, except as documented, Denies headache(s), Denies nasal congestion and Denies nasal discharge Cardiovascular Cardiovascular: Reports system reviewed and no additional complaints, except as documented, Denies chest pain and Denies dyspnea Respiratory Respiratory: Reports system reviewed and no additional complaints, except as documented, Denies chest congestion, Denies cough and Denies dyspnea Gastrointestinal Gastrointestinal: Reports system reviewed and no additional complaints, except as documented and Denies abdominal pain Musculoskeletal Musculoskeletal: Reports system reviewed and no additional complaints, except as documented, Denies back pain, Reports numbness and Reports stiffness Integumentary/Breasts Skin/Breast: Reports system reviewed and no additional complaints, except as documented and Denies rash Neurologic Neurologic: Reports system reviewed and no additional complaints, except as documented, Reports as per HPI, Denies headache(s) and Reports numbness Past Medical History Past Medical History NEUROLOGIC: Negative Neurological Disorders CARDIAC: Positive Cardiac Disorders, Edema, Deep Vein Thrombosis and Hypertension; Negative Congestive Heart Failure RESPIRATORY: Positive Chronic Obstructive Pulmonary Disease (COPD) and Asthma GASTROINTESTINAL: Positive Gastrointestinal Disorders and Gall Bladder Disease GENITOURINARY: Negative Genitourinary Disorders or Renal Disease REPRODUCTIVE: Negative Pelvic Inflammatory Disease MUSCULOSKELETAL: Positive Musculoskeletal Disorders and Arthritis ENDOCRINE: Positive Endocrine Disorders; Negative Diabetes Mellitus Type 1 or Diabetes Mellitus Type 2 HEMATOLOGIC: Negative Blood Disorders or Sickle Cell Disease OTHER HISTORY: Negative Autoimmune Disease, Organ Transplant or Cancer Family History FAMILY HISTORY: Positive Family Respiratory Disorders and Family Cardiac Disorders; Negative Family Psychiatric Problems, Family Gastrointestinal Problems, Family Cancer, Family Surgery or Family Anesthesia Reaction Surgical History SURGICAL: Positive Abdominal Surgery; Negative Cardiac Surgery, Endocrine Surgery, Ear Surgery, Nephrectomy or Organ Transplant Social History SMOKING STATUS: Current every day smoker 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) ED Exam General Limitations: Present no limitations General appearance: Present alert and in no apparent distress Head Head exam: Present atraumatic, normocephalic and normal inspection Eye Eye exam: Present normal appearance, PERRL and EOMI ENT ENT exam: Present normal exam, normal oropharynx and mucous membranes moist Neck Neck exam: Present normal inspection, full ROM and trachea midline Chest Chest inspection: Present normal inspection and symmetric chest wall rise Respiratory Respiratory exam: Present normal lung sounds bilaterally Cardiovascular Cardiovascular exam: Present regular rate, normal rhythm and normal heart sounds Abdominal Exam Abdominal exam: Present soft and normal bowel sounds Extremities Exam Extremities exam: Present full ROM, tenderness and normal capillary refill; Absent joint swelling Back Exam Back exam: Present normal inspection and full ROM Neurological Exam Neurological exam: Present alert, oriented X3 and CN II-XII intact Psychiatric Psychiatric exam: Present normal affect and normal mood Skin Skin exam: Present warm, dry, intact and normal color Course Quality Measures none Orders Category Date Time Status XR shoulder RT min 2V Stat Exams 03/10/25 13:04 Completed Ketorolac Inj [Toradol Inj] Med 03/10/25 13:04 Discontinued 30 mg IM X1 ONE Vital Signs Vital signs: Vital Signs Temperature 98.4 F 03/10/25 13:00 Pulse Rate 53 L 03/10/25 13:00 Respiratory Rate 18 03/10/25 13:00 Blood Pressure 184/92 H 03/10/25 13:00 Pulse Oximetry (%) 96 03/10/25 13:00 Oxygen Delivery Method Room Air 03/10/25 13:00 O2 saturation 96% room air within the limits Extremity Injury MDM Narrative MDM Narrative:: 65-year-old female presents to the emergency department complaint of right upper arm pain patient reports pain worse with movement ongoing for last couple of weeks patient reports no recent injury. Patient ports no chest pain or shortness of breath no headache dizziness or weakness. On exam patient well-appearing patient does not appear ill or toxic no acute stress Imaging obtained no acute emergent findings noted X-ray consistent with arthritis Patient given Toradol for pain Patient discharged home in no distress to follow-up with primary care doctor in the next 24 to 48 hours and for any worsening symptoms to return to the ER immediately Patient data External records reviewed:: [facility] previous records Clinical information provided by:: patient Social determinants that could affect healthcare access:: none Patient has the following chronic illnesses:: See history How is presenting disease/condition affected by chronic disease/condition?: caused by Evaluation data The following diagnostics were reviewed and interpreted by me:: radiology exam(s) Lab and/or radiology exams considered but not ordered:: Radiology obtain Interpretation Summary: Reviewed by me Medications / Prescriptions Medications or Prescriptions considered but not ordered:: Given Medication administrations:: Medication Administration History Discontinued Medications Ketorolac Tromethamine (Ketorolac Inj 30 Mg/Ml Vial) 30 mg IM X1 ONE Stop: 03/10/25 13:05 Last Admin: 03/10/25 13:20 Dose: 30 mg Documented By: MELITON Given Consultations Consultation(s) initiated? (list below): No Diagnosis Upper Extremity Injury Differential Diagnosis: dislocation of shoulder, fracture of humerus and other Most likely diagnosis given after review of the tests above:: Pain right shoulder Admission Indicated Admission indicated?: not indicated Admission Request Was there a request for admission?: No Disposition Plan Disposition Plan: Discharge Discharge Attestation Discharge Attestation: The patient and all family members were given an opportunity to ask questions and understood the discharge instructions. Discharge instructions specifically effects, indications for sooner follow up or return to the emergency department, and the expected course of current diagnosis. Patient condition: Stable Discharge Plan Plan Patient Disposition: HOME (Self Care) Discharge Disposition comment: Stable Prescriptions/Referrals Prescriptions/Med Rec: New cyclobenzaprine 10 mg tablet 10 mg PO TID PRN (Reason: muscle spasm) 10 Days Qty: 30 0RF meloxicam 7.5 mg tablet 7.5 mg PO QDAY 7 Days Qty: 7 0RF No Action levalbuterol tartrate 45 mcg/actuation HFA aerosol inhaler 2 inh inhalation Q6H PRN (Reason: shortness of breath or wheezing) Qty: 15 0RF quetiapine 300 mg tablet 300 mg PO 1XD escitalopram oxalate 10 mg tablet 10 mg PO 1XD Xarelto 15 mg tablet 15 mg PO Q24H lisinopril 20 mg tablet 20 mg PO QDAY Qty: 30 0RF nicotine 14 mg/24 hr patch 24 hour 14 mg topical DAILY Qty: 14 0RF Trelegy Ellipta 100-62.5-25 mcg blister with device 1 inh inhalation QDAY Qty: 28 0RF Referrals: Alex Boswell MD [Primary Care Provider, Internal Medicine] - In 1 week Problem List Clinical Impression: Osteoarthritis of right shoulder Patient/Caregiver Discharge Instructions Education Materials: ED Osteoarthritis Additional Instructions: Please follow up with your primary care doctor in the next 24-48hrs for any worsening symptoms return here immediately Print Language: Bhutanese Stand Alone Forms: Sabrina Award Info., Patient Portal Info Letter PA/ASSISTANT TERMINAL MANAGER Supervising Physician PA/ASSISTANT TERMINAL MANAGER Supervising Physician: Dr. ward
== END 2025-03-10 14:08 | disposition home or self-care (01) ==
PROVIDERS: Emergency Provider Emergency Medicine; PCP Student in an Organized Health Care Education/Training Program
DX: M19.011 Primary osteoarthritis, right shoulder (principal)
CPT/HCPCS: 73030; 96372; 99283; J1885

== ENCOUNTER 2025-03-17 18:22 | Emergency (ER) | payer MEDICARE, SELFPAY ==
[2025-03-17 19:07] VITALS: BP 179/98; PULSE 72; RESP 20; TEMP 37; O2SAT 96
--- NOTE | 2025-03-17 19:11 | XR_ITS ---
Examination: Ultrasound soft tissue neck Technique: Grayscale sonographic images soft tissue neck Date and time: March 17, 2025 1934 hrs. Indications: Palpable mass lump in the right neck with difficulty breathing 3 days Findings: Right thyromegaly with lobular thyroid contour Impression: Limited study demonstrating right thyromegaly Recommend dedicated thyroid sonography follow-up
--- NOTE | 2025-03-17 19:12 | PD.EDRME ---
Rapid Medical Screening Exam [facility] Arrival date/time: 03/17/25 18:22 65F with history of drug/psych and DVT presents to ED with several days of R-sided painful neck lump. Chief Complaint: Allergic Reaction Vital signs: Vital Signs Temperature 98.6 F 03/17/25 19:07 Pulse Rate 72 03/17/25 19:07 Respiratory Rate 20 03/17/25 19:07 Blood Pressure 179/98 H 03/17/25 19:07 Pulse Oximetry (%) 96 03/17/25 19:07 Oxygen Delivery Method Room Air 03/17/25 19:07
[2025-03-17 19:26] LABS: Basophils # (Auto) 0.0 Thou/mm3 (0.0-0.2); Basophils % (Auto) 1 % (0-2.5); Eosinophils # (Auto) 0.2 Thou/mm3 (0.0-0.5); Eosinophils % (Auto) 3 % (0-10); Hematocrit 46.0 % (36.0-46.0); Hemoglobin 15.2 g/dL (12.0-16.0); Immature Granulocytes Auto 0.02 Thou/mm3 (0.00-0.00); Lymphocytes # (Auto) 1.6 Thou/mm3 (1.0-4.8); Lymphocytes % (Auto) 27 % (10-50); Mean Corpuscular HGB Conc 33.0 g/dl (31.0-37.0); Mean Corpuscular Hemoglobin 30.8 pg (25.0-35.0); Mean Corpuscular Volume 93 fL (80-100); Monocytes # (Auto) 0.3 Thou/mm3 (0.0-0.8); Monocytes % (Auto) 5 % (0-12); Neutrophils # (Auto) 3.9 Thou/mm3 (1.8-7.7); Neutrophils % (Auto) 64 % (37-80); Nucleated Red Blood Cell # 0.00 Thou/mm3 (0.00-0.00); Nucleated Red Blood Cell % 0 /100 WBC (0); Platelet Count 250 Thou/mm3 (140-440); RDW Standard Deviation 42.7 fL (36.4-46.3); Red Blood Count 4.93 Miln/mm3 (4.00-5.20); White Blood Count 6.0 Thou/mm3 (3.6-11.0)
[2025-03-17 19:49] LABS: Sed Rate (ESR) 50 mm/hr (0-30)
[2025-03-17 20:04] LABS: Alanine Aminotransferase < 7 U/L (10-49); Albumin, Serum 4.4 gm/dL (3.4-4.8); Albumin/Globulin Ratio 1.4 (1.2-2.2); Alkaline Phosphatase 87 U/L (46-116); Anion Gap 6 (7-16); Aspartate Amino Transferase 20 U/L (0-34); BUN/Creatinine Ratio 9 Ratio (12-20); Bilirubin,Total 0.4 mg/dL (0.3-1.2); Blood Urea Nitrogen 10 mg/dL (9-23); Calcium 9.6 mg/dL (8.3-10.6); Calcium (Corrected) 9.6 mg/dL (8.5-10.1); Carbon Dioxide 27.3 mMol/L (20.0-31.0); Chloride 108 mMol/L (98-107); Creatinine (Component) 1.1 mg/dL (0.6-1.3); Estimated Creatinine Clearance 47.4 mL/min (>60); Globulin 3.1 gm/dL (2.3-3.5); Glucose 99 mg/dL (74-106); Osmolality,Calculated 280 (275-295); Potassium 3.6 mMol/L (3.4-5.1); Sodium 141 mMol/L (136-145); Thyroid Stimulating Hormone 87.17 uIU/mL (0.55-4.78); Total Protein 7.5 gm/dL (5.7-8.2); eGFR 55 See Note
[2025-03-17 20:21] LABS: C-Reactive Protein < 0.5 mg/dL (0.0-0.9)
== END 2025-03-17 23:20 | disposition left against medical advice (07) ==
PROVIDERS: Physician Assistant; Emergency Provider Emergency Medicine; PCP Student in an Organized Health Care Education/Training Program
DX: R22.1 Localized swelling, mass and lump, neck (principal); M54.2 Cervicalgia; Z53.29 Procedure and treatment not carried out because of patient's decision for other reasons
CPT/HCPCS: 36415; 76536; 80053; 84443; 85025; 85652; 86140; 99283

== ENCOUNTER 2025-03-22 22:35 | Emergency (ER) | payer MEDICARE, MEDICAID, SELFPAY ==
[2025-03-22 22:40] VITALS: PULSE 66; RESP 19; O2SAT 97; BMI 25.4
[2025-03-22 22:46] VITALS: BP 176/86; PULSE 62; RESP 15; TEMP 36.7; O2SAT 97
[2025-03-22 22:47] VITALS: BP 176/86; PULSE 55; RESP 20; TEMP 36.9; O2SAT 97
[2025-03-22 23:20] LABS: Basophils # (Auto) 0.1 Thou/mm3 (0.0-0.2); Basophils % (Auto) 1 % (0-2.5); Eosinophils # (Auto) 0.2 Thou/mm3 (0.0-0.5); Eosinophils % (Auto) 4 % (0-10); Hematocrit 48.2 % (36.0-46.0); Hemoglobin 15.8 g/dL (12.0-16.0); Immature Granulocytes Auto 0.01 Thou/mm3 (0.00-0.00); Lymphocytes # (Auto) 1.9 Thou/mm3 (1.0-4.8); Lymphocytes % (Auto) 34 % (10-50); Mean Corpuscular HGB Conc 32.8 g/dl (31.0-37.0); Mean Corpuscular Hemoglobin 30.7 pg (25.0-35.0); Mean Corpuscular Volume 94 fL (80-100); Monocytes # (Auto) 0.3 Thou/mm3 (0.0-0.8); Monocytes % (Auto) 6 % (0-12); Neutrophils # (Auto) 3.1 Thou/mm3 (1.8-7.7); Neutrophils % (Auto) 55 % (37-80); Nucleated Red Blood Cell # 0.00 Thou/mm3 (0.00-0.00); Nucleated Red Blood Cell % 0 /100 WBC (0); Platelet Count 300 Thou/mm3 (140-440); RDW Standard Deviation 42.6 fL (36.4-46.3); Red Blood Count 5.15 Miln/mm3 (4.00-5.20); White Blood Count 5.6 Thou/mm3 (3.6-11.0)
--- NOTE | 2025-03-22 23:35 | PC.NURSE ---
patient lying calming in bed, chest rise and fall noted, VS stable at this time.
[2025-03-22 23:48] LABS: Alanine Aminotransferase 7 U/L (10-49); Albumin, Serum 4.3 gm/dL (3.4-4.8); Albumin/Globulin Ratio 1.6 (1.2-2.2); Alkaline Phosphatase 84 U/L (46-116); Anion Gap 6 (7-16); Aspartate Amino Transferase 15 U/L (0-34); BUN/Creatinine Ratio 11 Ratio (12-20); Bilirubin,Total 0.3 mg/dL (0.3-1.2); Blood Urea Nitrogen 11 mg/dL (9-23); Calcium 10.0 mg/dL (8.3-10.6); Calcium (Corrected) 10.0 mg/dL (8.5-10.1); Carbon Dioxide 28.3 mMol/L (20.0-31.0); Chloride 109 mMol/L (98-107); Creatinine (Component) 1.0 mg/dL (0.6-1.3); Estimated Creatinine Clearance 52.1 mL/min (>60); Globulin 2.7 gm/dL (2.3-3.5); Glucose 91 mg/dL (74-106); Osmolality,Calculated 284 (275-295); Potassium 3.7 mMol/L (3.4-5.1); Sodium 143 mMol/L (136-145); Total Protein 7.0 gm/dL (5.7-8.2); eGFR > 60 See Note
[2025-03-23 00:16] VITALS: BP 150/77; PULSE 59; RESP 20; TEMP 36.7; O2SAT 97
[2025-03-23 00:25] LABS: INR 0.9 (0.9-1.3); Prothrombin Time 9.8 Seconds (9.0-12.2)
[2025-03-23] MEDS: MORPHINE SULF INJ 4 MG/ML VIAL IVP (02:05)
[2025-03-23] MEDS: ONDANSETRON INJ 2 MG/ML INJ 2 ML 4 MG IVP (02:05)
[2025-03-23 02:52] VITALS: BP 155/82; PULSE 55; RESP 18; TEMP 36.6; O2SAT 96
--- NOTE | 2025-03-23 03:00 | EDNOTE_ITS ---
ED Neck Injury Pain RME/HPI General Chief Complaint: Dental/Oral/Throat Stated Complaint: NECK PAIN Time Seen by Provider: 03/22/25 23:11 Arrival date/time: 03/22/25 22:35 RME / HPI RME / HPI Narrative: DR. BARROW MAIN ED EVALUATION: Patient presenting with progressive swelling at the right anterior base of the neck for approximately 2 weeks duration and notes increasing pain. Denies difficulty swallowing or breathing. Patient had been seen in ED department 1 week [employer] and underwent US which demonstrated an enlarged right lobe of the thyroid gland and placed on Meloxicam without significant improvement. No vomiting or diarrhea. 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 PSH: Allergies: Social: Non-smoker, prior Methamphetamine abuse, No Related Data Home Medications ?Medication ?Instructions ?Recorded ?Confirmed escitalopram oxalate 10 mg tablet 10 mg PO 1XD 5 12/07/24 quetiapine 300 mg tablet 300 mg PO 1XD 12/05/2412/07 rivaroxaban 15 mg tablet (Xarelto) 15 mg PO Q24H 12/0512/07/24 Previous Rx's ?Medication ?Instructions ?Recorded fluticasone fur. 100 mcg-umeclid 1 inh inhalation QDAY #28 ea 12/05/24 62.5 mcg-vilant 25 mcg inhalat.powder (Trelegy Ellipta) lisinopril 20 mg tablet 20 mg PO QDAY #30 tabs 12/05 nicotine 14 mg/24 hr daily 14 mg topical DAILY #14 ea 12/05/24 transdermal patch levalbuterol tartrate 45 2 inh inhalation Q6H PRN bennie rtness 12/09/24 mcg/actuation aerosol inhaler of breath or wheezing #1 5 grams levothyroxine 100 mcg capsule 100 mcg PO QDAY #30 caps 03/23/25 oxycodone-acetaminophen 5 mg-325 1 tab PO TID PRN pain #24 tabs 03/23/25 mg tablet (Percocet) prednisone 20 mg tablet 40 mg PO QDAY 5 days #10 tab s 09/30/25 Allergies Allergy/AdvReac Type Severity Reaction Status Date / Time albuterol Allergy Severe Swelling Verified 03/22/25 22:46 of Lip/Tongue/Throat metronidazole Allergy Severe RASH Verified 03/22/25 22:46 povidone-iodine Allergy Severe RASH, Verified 03/22/25 22:46 SWELLING Review of Systems Review of Systems Systems Reviewed: All systems reviewed, normal except as documented Past Medical History Past Medical History CARDIAC: Positive Edema, Deep Vein Thrombosis and Hypertension RESPIRATORY: Positive Chronic Obstructive Pulmonary Disease (COPD) and Asthma GASTROINTESTINAL: Positive Gastrointestinal Disorders and Gall Bladder Disease MUSCULOSKELETAL: Positive Musculoskeletal Disorders and Arthritis Family History FAMILY HISTORY: Positive Family Respiratory Disorders and Family Cardiac Disorders Surgical History SURGICAL: Positive Abdominal Surgery Social History 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) ED Exam Narrative Physical exam: GEN. APPEARANCE: The patient is alert awake oriented X-3 in mild to moderate distress, lying down comfortably, does not look ill/toxic. Patient has good eye contact. Patient is cooperative. Mildly hypertensive on arrival, c/o anterior neck pain. VITALS: All vitals were reviewed and the pulse ox is 96% on room air which is normal according to my interpretation. HEENT: Normocephalic, atraumatic. Pupils are equal and reactive. Oral mucosa is moist. Patent Nares NECK: Supple, 4x3 cm tender priominense at base of ribht antieor cervical triangle, no crepitus or stridor. CHEST: Symmetrical, atraumatic, and with equal expansion , Nontender on palpation no deformity and no crepitus. CARDIOVASCULAR: Heart regular rhythm no murmur or gallop rub or extra beats. LUNGS: Clear to auscultation bilaterally with symmetrical chest rise. No laboring tachypnea or wheezing. No intercostal subcostal retraction. No rales and no rhonchi. ABDOMEN: Soft, flat, nontender to palpation, no guarding or rebound tenderness. There are no abnormal masses palpated. Active and normal bowel sounds. EXTREMITIES: Nontender. No edema. No cyanosis. Patient is able to move all 4 extremities well, with full ROM and good CSM. SKIN: Warm and dry, no jaundice or rashes noted. MUSCULOSKELETAL: No lubar or midline bony tenderness. There is no CVA tenderness. No paraspinal muscle spasm or tenderness. NEURO: Patient is PITTMAN x 4, Cranial nerves II through XII grossly intact. There is no focal neurologic deficits noted. GCS is 15, PNS and [employer] appear grossly intact. PSYCHIATRIC: Patient is in normal mood and affect, cooperative, no SI or HI or hallucinations. Course Quality Measures none Orders Category Date Time Status CT Screening NOW Care 03/23/25 03:[address] soft tissue neck w con Stat Exams 03/23/25 03:01 Completed C-Reactive Protein Stat Lab 03/22/25 22:50 Completed CBC Stat Lab 03/22/25 22:50 Completed CMP [Comprehensive Metabolic Panel] Stat Lab 03/22/25 22:50 Completed PT [Prothrombin Time with INR] Stat Lab 03/22/25 22:50 Completed Sed Rate (ESR) Stat Lab 03/22/25 22:50 Completed Thyroid Stimulating Hormone Stat Lab 03/22/25 22:50 Completed Dexamethasone Inj [Decadron Inj] Med 03/23/25 03:16 Discontinued 10 mg IVP X1 ONE DiphenhydrAMINE INJ [Benadryl Inj] Med 03/23/25 03:15 Discontinued 50 mg IVP X1 ONE Ketorolac Inj [Toradol Inj] Med 03/23/25 01:54 Discontinued 15 mg IVP X1 ONE Levothyroxine Inj [Synthroid Inj] Med 03/23/25 05:21 Discontinued 100 mcg IV X1 ONE Morphine* Inj Med 03/23/25 01:55 Discontinued 4 mg IVP X1 ONE Ondansetron Inj [Zofran Inj] Med 03/23/25 01:55 Discontinued 4 mg IVP X1 ONE Sodium Chloride 0.9% 1000 ml [Ns] 1,000 ml Med 03/23/25 03:01 Discontinued IV 999 mls/hr Vital Signs Vital signs: Vital Signs Temperature 98.0 F 03/22/25 22:46 Pulse Rate 62 03/22/25 22:46 Respiratory Rate 15 03/22/25 22:46 Blood Pressure 176/86 H 03/22/25 22:46 Pulse Oximetry (%) 97 03/22/25 22:46 Oxygen Delivery Method Room Air 03/22/25 22:46 Neck Pain MDM Narrative MDM Narrative:: Scribe Attestation: IKristine, am scribing for and in the presence of Dr. Barrow. Provider Notation: Although this document has been carefully reviewed, there may still be some phonetic and other typographical errors. These errors are purely grammatical due to imperfections in the software program and should not be construed in any way to compromise the substance of the patient's medical care during this visit. Patient presenting with progressive swelling at the right anterior base of the neck for approximately 2 weeks duration and notes increasing pain. Denies difficulty swallowing or breathing. Please see PE findings. Laboratory markers, including CBC and serum chemistries, demonstrate normal WBC. No anemia or thrombocytopenia, no left shift or bandemia. Serum chemistries demonstrate ESR elevated at 50. Serum chemistries demonstrated slightly reduced creatinine clearance at 52.1. TSH markedly elevated at 94. Patient placed on telemetry monitor, treated with incremental low-dose narcotic analgesic, and also administered Levothyroxine. Patient was referred for CT of soft tissue neck currently pending. Patient will be discharged home on Levothyroxine. Final disposition includes Hypothyroidism and thyroiditis. Patient data External records reviewed:: [facility] previous records (Reviewed prior ED records from 03/17/25. Patient was seen for Allergic Reaction.) Clinical information provided by:: patient and EMS Social determinants that could affect healthcare access:: substance use (Methamphetamine) Patient has the following chronic illnesses:: Edema, Deep Vein Thrombosis, Hypertension, Chronic Obstructive Pulmonary Disease (COPD), Asthma, Gall Bladder Disease, Arthritis How is presenting disease/condition affected by chronic disease/condition?: exacerbated by Evaluation data The following diagnostics were reviewed and interpreted by me:: lab results and radiology exam(s) Lab and/or radiology exams considered but not ordered:: None Interpretation Summary: RADIOLOGY Soft Tissue Neck CT: Pending official radiology report. Medications / Prescriptions Medications or Prescriptions considered but not ordered:: None Medication administrations:: Medication Administration History Discontinued Medications Dexamethasone Sodium Phosphate (Dexamethasone Sod Phos Inj 10 Mg/Ml Vial) 10 mg IVP X1 ONE Stop: 03/23/25 03:17 Last Admin: 03/23/25 03:27 Dose: 10 mg Documented By: ANABEL Diphenhydramine HCl (Diphenhydramine Inj 50 Mg/Ml Vial) 50 mg IVP X1 ONE Stop: 03/23/25 03:16 Last Admin: 03/23/25 03:28 Dose: 50 mg Documented By: ANABEL Sodium Chloride (Ns) 1,000 mls @ 999 mls/hr IV .Q1H1M ONE Stop: 03/23/25 04:01 Last Infusion: 03/23/25 05:10 Dose: Infused Documented By: Admin: 03/23/25 03:27 Dose: 999 mls/hr Documented By: ANABEL Ketorolac Tromethamine (Ketorolac Inj 30 Mg/Ml Vial) 15 mg IVP X1 ONE Stop: 03/23/25 01:55 Last Admin: 03/23/25 01:59 Dose: Not Given Documented By: ANABEL Non-Admin Reason: Cancelled by Provider Levothyroxine Sodium (Levothyroxine Inj 100 Mcg Vial) 100 mcg IV X1 ONE Stop: 03/23/25 05:22 Last Admin: 03/23/25 06:21 Dose: 100 mcg Documented By: ANABEL Morphine Sulfate (Morphine Sulf Inj 4 Mg/Ml Vial) 4 mg IVP X1 ONE Stop: 03/23/25 01:56 Last Admin: 03/23/25 02:05 Dose: 4 mg Documented By: ANABEL Ondansetron HCl (Ondansetron Inj 2 Mg/Ml Inj 2 Ml) 4 mg IVP X1 ONE; Protocol Stop: 03/23/25 01:56 Last Admin: 03/23/25 02:05 Dose: 4 mg Documented By: ANABEL See above if any Consultations Consultation(s) initiated? (list below): No Diagnosis Neck Differential Diagnosis: other (Lymphadenitis, Thyroid mass, Goiter) Most likely diagnosis given after review of the tests above:: Thyroiditis, Hypothyroidism Admission Indicated Admission indicated?: indicated Explain why admission is indicated or not indicated:: Patient does not meet admission criteria Admission Request Was there a request for admission?: No Disposition Plan Disposition Plan: Discharge Discharge Attestation Discharge Attestation: The patient and all family members were given an opportunity to ask questions and understood the discharge instructions. Discharge instructions specifically effects, indications for sooner follow up or return to the emergency department, and the expected course of current diagnosis. Patient condition: Stable Discharge Plan Plan Patient Disposition: HOME (Self Care) Prescriptions/Referrals Prescriptions/Med Rec: New levothyroxine 100 mcg capsule 100 mcg PO QDAY Qty: 30 0RF prednisone 20 mg tablet 40 mg PO QDAY 5 Days Qty: 10 0RF Taper: Prednisone Taper 40 mg DAILY for 5 Days and 0 Hour oxycodone-acetaminophen [Percocet] 5-325 mg tablet 1 tab PO TID MDD 3 tab PRN (Reason: pain) Qty: 24 0RF No Action levalbuterol tartrate 45 mcg/actuation HFA aerosol inhaler 2 inh inhalation Q6H PRN (Reason: shortness of breath or wheezing) Qty: 15 0RF quetiapine 300 mg tablet 300 mg PO 1XD escitalopram oxalate 10 mg tablet 10 mg PO 1XD Xarelto 15 mg tablet 15 mg PO Q24H lisinopril 20 mg tablet 20 mg PO QDAY Qty: 30 0RF nicotine 14 mg/24 hr patch 24 hour 14 mg topical DAILY Qty: 14 0RF Trelegy Ellipta 100-62.5-25 mcg blister with device 1 inh inhalation QDAY Qty: 28 0RF Referrals: cvm [Other] - In 1 week cv [Other] - In 1 week [facility] [Outside] - In 1 week Referral Note: Patient with evidence of thyroiditis and hypothyroid. Please assess in 3 to 5 days. Elbert (Referring),Alex Sharpe MD [Primary Care Provider] - In 1 week Problem List Clinical Impression: Hypothyroidism, Thyroiditis Patient/Caregiver Discharge Instructions Education Materials: The Role of the Thyroid Gland, Diagnosing a Thyroid Problem Additional Instructions: Medications as directed. Warm compresses alternating with cool compresses to the anterior neck 3 times daily. Print Language: Spanish Stand Alone Forms: Sabrina Award Info., Patient Portal Info Letter
--- NOTE | 2025-03-23 03:01 | XR_ITS ---
Examination: CT soft tissue neck, with intravenous contrast. 2-D coronal reconstructions. 2-D sagittal reconstructions. Date and time of exam :March 23, 2025, 0438 hrs. Indications: Palpable neck mass and pain noticed beginning 6 days ago. CTDI: vol (mGy):11.8 DLP: (mGycm):284 Technique: 1.25 mm axial sections of the neck of the obtained. Coronal and sagittal reconstructions have been obtained. Intravenous contrast administered 50 cc Isovue-370. Low dose protocols were performed. One or more of the following dose reduction techniques were used; automated exposure control, adjustment of the mA and/or KV according to patient size, use of iterative reconstruction technique. Findings: Symmetrical optic globes The maxillary antra are clear Symmetrical nasopharynx oropharynx Symmetrical submandibular glands No pathologic carotid triangle submental lymphadenopathy The larynx appears normal Significant thyromegaly with heterogeneous density throughout both thyroid lobes, the thyroid lobes impinge upon the trachea with mild narrowing Normal epiglottis Moderate degenerative disc disease C4-C5, C5-C6, C6-C7, C7-T1 Impression: Significant thyromegaly with heterogeneous density throughout both thyroid lobes, consider correlation with dedicated thyroid sonography as well as nuclear medicine thyroid uptake and scans
[2025-03-23] MEDS: SODIUM CHLORIDE 0.9% 1000 ML 1,000 ML 999 ML IV (03:27)
[2025-03-23] MEDS: DEXAMETHASONE SOD PHOS INJ 10 MG/ML VIAL IVP (03:27)
[2025-03-23 03:48] LABS: Sed Rate (ESR) 50 mm/hr (0-30)
[2025-03-23 03:50] LABS: C-Reactive Protein < 0.5 mg/dL (0.0-0.9); Thyroid Stimulating Hormone 94.35 uIU/mL (0.55-4.78)
--- NOTE | 2025-03-23 05:38 | PRELIM_ITS ---
CT scan of the neck with intravenous contrast (axial sections with sagittal and coronal reformats). March 23, 2025 at 0443 hours Clinical History: Neck mass. Comparison: None available at the time of this report. Findings: The nasopharynx, oropharynx, hypopharynx, supraglottic and infraglottic larynx, vocal cords and upper trachea are unremarkable. The epiglottis and aryepiglottic folds appear unremarkable. No enhancing lesion or fluid collection is identified. The vessels of the neck are well opacified. No filling defect is seen. The superficial soft tissues of the neck are unremarkable. The osseous structures are unremarkable. Enlarged heterogenous thyroid. Bilateral cervical lymphadenopathy. Impression: 1. Enlarged heterogenous thyroid. Correlation with thyroid function tests and ultrasound is recommended. 2. No masses. 3. Bilateral cervical lymphadenopathy, possibly reactive. Report Electronically Signed By: Champ Brooks 03/23/2025 5:38:00 AM [EST]
[2025-03-23 06:08] VITALS: BP 147/73; PULSE 47; RESP 19; TEMP 36.5; O2SAT 94
[2025-03-23 07:03] VITALS: BP 145/85; PULSE 60; RESP 14; TEMP 37; O2SAT 99
== END 2025-03-23 07:04 | disposition home or self-care (01) ==
PROVIDERS: Emergency Provider Emergency Medicine; PCP Student in an Organized Health Care Education/Training Program
DX: E06.9 Thyroiditis, unspecified (principal); E03.9 Hypothyroidism, unspecified
CPT/HCPCS: 36415; 70491; 80053; 81001; 84443; 85025; 85610; 85652; 86140; 87400; 87811; 96374; 99284; A4649; J1100; J1200; J2270; J2405; J7030; Q9967

== ENCOUNTER 2025-05-03 20:00 | Emergency (ER) | payer MEDICARE, MEDICAID, SELFPAY ==
[2025-05-03 20:02] VITALS: BMI 25.4
== END 2025-05-03 22:57 | disposition left against medical advice (07) ==
PROVIDERS: Emergency Provider Emergency Medicine
DX: Z53.21 Procedure and treatment not carried out due to patient leaving prior to being seen by health care provider (principal)
CPT/HCPCS: 99281

== ENCOUNTER 2025-05-10 17:36 | Emergency (ER) | payer MEDICARE, MEDICAID, SELFPAY ==
[2025-05-10 17:37] VITALS: BMI 26.2
[2025-05-10 18:00] VITALS: BP 154/91; PULSE 68; RESP 18; TEMP 36.7; O2SAT 98
--- NOTE | 2025-05-10 18:28 | PD.EDRME ---
Rapid Medical Screening Exam RME Arrival date/time: 05/10/25 17:36 Chief Complaint: Neck Pain/Injury Time Seen by Provider: 05/10/25 17:58 Vital signs: Vital Signs Temperature 98.0 F 05/10/25 18:00 Pulse Rate 68 05/10/25 18:00 Respiratory Rate 18 05/10/25 18:00 Blood Pressure 154/91 H 05/10/25 18:00 Pulse Oximetry (%) 98 05/10/25 18:00 Oxygen Delivery Method Room Air 05/10/25 18:00 RME Narrative: 65-year-old female presents to the ER complaining of anterior right neck swelling, patient was told it was her thyroid and placed on thyroid medication by her doctor however this did not help her, she states that the swelling was larger and is even decrease in swelling but her pain persist additionally it radiates to her right arm. Denies dysphagia, shortness of breath, fever. I briefly performed a screening evaluation to initiate work-up and expedite care. Complete history, physical exam, and plan of care is deferred to the provider in the main ED. Exam: Head: Normocephalic, atraumatic. Respiratory: Normal effort. No respiratory distress or accessory muscle use. Neuro: Speech normal. Skin: Warm, dry, normal color. Psych: Pleasant. Normal affect. Cooperative. Clinical Impression: Neck mass
--- NOTE | 2025-05-10 18:41 | XR_ITS ---
Examination: CT soft tissue neck without contrast, 2-D sagittal reconstructions. 2-D coronal reconstructions. 3-D reconstructions. Date and time of exam: May 10, 2025, 1856 hours INDICATIONS: Neck mass today, unable to swallow Comparison 03/23/2025 CTDI: vol (mGy): 13.2 DLP: (mGycm): 631 Technique: Multiple 1.25 mm axial sections of the soft tissue neck without intravenous contrast have been obtained. 2-D sagittal and coronal reconstructions have been obtained. 3-D reconstructions have been obtained. Low dose protocols were performed. One or more of the following dose reduction techniques were used; automated exposure control, adjustment of the mA and/or KV according to patient size, use of iterative reconstruction technique. Findings: The optic globes exhibit symmetry Maxillary antra are clear Symmetrical nasopharynx oropharynx Supraglottic region unremarkable No pathologic cervical lymphadenopathy The larynx appears normal Thyroid lobes are enlarged on this noncontrast study Lung apices are clear Normal epiglottis Satisfactory alignment cervical vertebral bodies Advanced degenerative disc disease C5-C6 C6-C7 IMPRESSION: No soft tissue tonsillar abscess or significant hypertrophy of the tonsils No pathologic cervical lymphadenopathy Normal larynx Normal normal epiglottis Moderate bilateral thyromegaly, consider correlation with oral I-123 thyroid uptake and scan
[2025-05-10 19:01] LABS: Basophils # (Auto) 0.1 Thou/mm3 (0.0-0.2); Basophils % (Auto) 1 % (0-2.5); Eosinophils # (Auto) 0.1 Thou/mm3 (0.0-0.5); Eosinophils % (Auto) 3 % (0-10); Hematocrit 46.7 % (36.0-46.0); Hemoglobin 15.2 g/dL (12.0-16.0); Immature Granulocytes Auto 0.09 Thou/mm3 (0.00-0.00); Lymphocytes # (Auto) 1.3 Thou/mm3 (1.0-4.8); Lymphocytes % (Auto) 31 % (10-50); Mean Corpuscular HGB Conc 32.5 g/dl (31.0-37.0); Mean Corpuscular Hemoglobin 30.0 pg (25.0-35.0); Mean Corpuscular Volume 92 fL (80-100); Monocytes # (Auto) 0.2 Thou/mm3 (0.0-0.8); Monocytes % (Auto) 6 % (0-12); Neutrophils # (Auto) 2.4 Thou/mm3 (1.8-7.7); Neutrophils % (Auto) 57 % (37-80); Nucleated Red Blood Cell # 0.00 Thou/mm3 (0.00-0.00); Nucleated Red Blood Cell % 0 /100 WBC (0); Platelet Count 264 Thou/mm3 (140-440); RDW Standard Deviation 44.1 fL (36.4-46.3); Red Blood Count 5.07 Miln/mm3 (4.00-5.20); White Blood Count 4.2 Thou/mm3 (3.6-11.0)
[2025-05-10 19:08] LABS: Alanine Aminotransferase 13 U/L (10-49); Albumin, Serum 4.2 gm/dL (3.4-4.8); Albumin/Globulin Ratio 1.7 (1.2-2.2); Alkaline Phosphatase 84 U/L (46-116); Anion Gap 6 (7-16); Aspartate Amino Transferase 21 U/L (0-34); BUN/Creatinine Ratio 10 Ratio (12-20); Bilirubin,Total 0.4 mg/dL (0.3-1.2); Blood Urea Nitrogen 10 mg/dL (9-23); Calcium 9.4 mg/dL (8.3-10.6); Calcium (Corrected) 9.4 mg/dL (8.5-10.1); Carbon Dioxide 27.9 mMol/L (20.0-31.0); Chloride 109 mMol/L (98-107); Creatinine (Component) 1.0 mg/dL (0.6-1.3); Estimated Creatinine Clearance 52.9 mL/min (>60); Globulin 2.5 gm/dL (2.3-3.5); Glucose 133 mg/dL (74-106); Osmolality,Calculated 285 (275-295); Potassium 3.9 mMol/L (3.4-5.1); Sodium 143 mMol/L (136-145); Total Protein 6.7 gm/dL (5.7-8.2); eGFR > 60 See Note
--- NOTE | 2025-05-10 20:07 | XR_ITS ---
Examination: CT cervical spine without contrast 2-D sagittal reconstructions 2-D coronal reconstructions 3-D reconstructions. Exam date and time: May 10, 2025, 2020 hours INDICATIONS: Neck pain with right-sided body weakness beginning 2 weeks ago CTDI:vol (mGy) 14.6 DLP: (mGycm) 302 Technique: Multiple 2 mm axial sections of the cervical spine have been obtained. The coronal and sagittal reconstructions have been obtained. 3-D reconstructions have been obtained. Low dose protocols were performed. One or more of the following dose reduction techniques were used; automated exposure control, adjustment of the mA and/or KV according to patient size, use of iterative reconstruction technique. Findings: Axial sections demonstrate intact base of the skull. C1 exhibit satisfactory relationship to the odontoid. No acute cervical vertebral body fracture seen. Alignment posterior spinous processes satisfactory. Moderate degenerative disc disease C5-C6 C6-C7 and C7-T1 C3-C4 advanced right neural foraminal stenosis C5-C6 advanced left neuroforaminal stenosis Impression: No acute cervical fracture. Moderate degenerative disc disease C5-C6, C6-C7, C7-T1 C3-C4 advanced right neuroforaminal stenosis C5-C6 advanced left neuroforaminal stenosis
[2025-05-10] MEDS: ACETAMINOPHEN 325 MG TABLET 650 MG PO (21:04)
[2025-05-10] MEDS: KETOROLAC INJ 30 MG/ML VIAL 15 MG IM (21:05)
--- NOTE | 2025-05-10 21:27 | PD.EDNECK ---
ED Neck Injury Pain RME/HPI General Chief Complaint: Neck Pain/Injury Stated Complaint: RT SIDE NECK PAIN X2 WKS Time Seen by Provider: 05/10/25 17:58 Arrival date/time: 05/10/25 17:36 RME / HPI RME / HPI Narrative: 65-year-old female with a past medical history of painful right thyroid gland enlargement radiating to her R arm, she was see in the ER twice for this in february of this year, currently awaiting to see an braille teacher in 1 month as referred to by her PCP for thyroid problems , who presents to the ER complaining of an acute exacerbation of her chronic pain. She states that the swelling seems to be improving, but her pain persist. Her pain improves with certain positions. Denies dysphagia, shortness of breath, CP, N/V, fever, vision changes, fever, weaknes, abdominal pain. Related Data Home Medications ?Medication ?Instructions ?Recorded ?Confirmed escitalopram oxalate 10 mg tablet 10 mg PO 1XD 12/05/24 12/07/24 quetiapine 300 mg tablet 300 mg PO 1XD 12/05/24 12/07/24 rivaroxaban 15 mg tablet (Xarelto) 15 mg PO Q24H 12/05/24 12/07/24 Previous Rx's ?Medication ?Instructions ?Recorded fluticasone fur. 100 mcg-umeclid 1 inh inhalation QDAY #28 ea 12/05/24 62.5 mcg-vilant 25 mcg inhalat.powder (Trelegy Ellipta) lisinopril 20 mg tablet 20 mg PO QDAY #30 tabs 12/05/24 nicotine 14 mg/24 hr daily 14 mg topical DAILY #14 ea 12/05/24 transdermal patch levalbuterol tartrate 45 2 inh inhalation Q6H PRN shortness 12/09/24 mcg/actuation aerosol inhaler of breath or wheezing #15 grams levothyroxine 100 mcg capsule 100 mcg PO QDAY #30 caps 03/23/25 oxycodone-acetaminophen 5 mg-325 1 tab PO TID PRN pain #24 tabs 03/23/25 mg tablet (Percocet) Allergies Allergy/AdvReac Type Severity Reaction Status Date / Time albuterol Allergy Severe Swelling Verified 05/10/25 17:39 of Lip/Tongue/Throat metronidazole Allergy Severe RASH Verified 05/10/25 17:39 povidone-iodine Allergy Severe RASH, Verified 05/10/25 17:39 SWELLING ED Exam Narrative Physical exam: Constitutional: Patient alert and oriented. Well appearing. No acute distress. Not toxic appearing. Head: Normocephalic, atraumatic. Eyes: Periorbital regions bilaterally normal to inspection. Conjunctiva clear bilaterally. Sclera anicteric bilaterally. Pupils equal, round, reactive to light bilaterally. Extraocular movements intact bilaterally. Mouth/Throat: Poor dentition. Mucous membranes moist. No stridor or muffled voice. No trismus. Handling secretions without difficulty. Airway widely patent. Neck: Supple. Trachea midline. No JVD. No nuchal rigidity. Normal range of motion. Positive Spurling sign. Positive thyroid enlargement. Respiratory: Normal effort. No accessory muscle use or respiratory distress. Lungs clear to auscultation bilaterally without rhonchi, wheezes, or crackles. Cardiovascular: RRR. Normal S1/S2. No murmurs or rubs. Radial pulses intact bilaterally. Abdomen: Soft. Non-distended. Non-tender throughout. No pulsatile mass. No guarding or rebound. Negative Paez?s sign. Negative McBurney?s point tenderness. Negative Rovsing?s. Back: No midline tenderness or step-offs. No CVA tenderness to palpation bilaterally. Upper Extremities: No gross deformities. Deep tendon reflexes 2+ symmetric, strength 5 out of 5, sensation tact light touch for upper extremities bilaterally. Lower Extremities: No gross deformities. No edema or calf tenderness. Neuro: Speech normal. No gross motor or sensory deficits to upper or lower extremities bilaterally. GCS 15. CN II?XII grossly intact. Skin: Warm, dry, normal color. Psych: Normal affect. Cooperative. Normal insight. Course Quality Measures none Orders Category Date Time Status CT cervical spine wo con Stat Exams 05/10/25 20:[address] soft tissue neck wo con Stat Exams 05/10/25 18:41 Completed CBC Stat Lab 05/10/25 18:05 Completed CMP [Comprehensive Metabolic Panel] Stat Lab 05/10/25 18:05 Completed Acetaminophen Tab [Tylenol Tab] Med 05/10/25 19:58 Discontinued 650 mg PO X1 ONE Ketorolac Inj [Toradol Inj] Med 05/10/25 20:41 Discontinued 15 mg IM X1 ONE Lidocaine 5% Patch Med 05/10/25 21:09 Discontinued 1 patch TOP X1 ONE Reevaluation(s) Reevaluation #1: At the time of reassessment, the patient remains alert and oriented ?3 with GCS 15. Vitals are normal, pain is controlled, and the patient is tolerating oral intake without nausea or vomiting. The patient is agreeable to discharge and verbalizes understanding of the diagnosis, studies, treatment plan, medications (including side effects/precautions), and strict ER return precautions as discussed in the ED. All concerns were addressed, and the patient is comfortable with the plan. Time: 21:37 Vital Signs Vital signs: Vital Signs Temperature 98.0 F 05/10/25 18:00 Pulse Rate 68 05/10/25 18:00 Respiratory Rate 18 05/10/25 18:00 Blood Pressure 154/91 H 05/10/25 18:00 Pulse Oximetry (%) 98 05/10/25 18:00 Oxygen Delivery Method Room Air 05/10/25 18:00 Neck Pain MDM Narrative MDM Narrative:: MDM Concern for cervical radiculopathy complicated by thyromegaly Clinically doubt thyroid storm or myxedema coma CBC notable for minimally low hematocrit at 46.7, chloride minimally elevated 109, anion gap minimally low at 6, glucose minimally elevated 133 otherwise no severe metabolic or electrolyte abnormality CT soft tissue neck notes moderate thyromegaly however remainder of soft tissue is unremarkable, CT C-spine with DJD and right neural foraminal stenosis without acute fracture or subluxation I considered a vertebral or carotid artery dissection however symptoms have been ongoing for the past 3 months and she is neurologically intact therefore I doubt this diagnosis additionally clinical evaluation does not support this I additionally considered advanced imaging to exclude acute cord syndrome or nerve root syndrome however once again patient is neurologically intact and given chronicity of symptoms along with lack of weakness it is not indicated at this time At the time of reassessment prior to discharge, the patient remains alert and oriented ?3 with GCS 15. Vitals are normal, pain is controlled, and the patient is tolerating oral intake without nausea or vomiting. The patient is agreeable to discharge and verbalizes understanding of the diagnosis, studies, treatment plan, medications (including side effects/precautions), and strict ER return precautions as discussed in the ED. All concerns were addressed, and the patient is comfortable with the plan. Patient data External records reviewed:: [facility] previous records Clinical information provided by:: patient Social determinants that could affect healthcare access:: none Patient has the following chronic illnesses:: Thyromegaly How is presenting disease/condition affected by chronic disease/condition?: no chronic disease Evaluation data The following diagnostics were reviewed and interpreted by me:: other (specify) Lab and/or radiology exams considered but not ordered:: Additional Labs and radiology considered, but not ordered as they were not clinically indicated at this time. Interpretation Summary: As noted Medications / Prescriptions Medications or Prescriptions considered but not ordered:: I considered prescription management (both outpatient prescriptions AND drug treatment in the ER) and decided that this was necessary and was prescribed as charted. Medication administrations:: Medication Administration History Discontinued Medications Acetaminophen (Acetaminophen 325 Mg Tablet) 650 mg PO X1 ONE Stop: 05/10/25 19:59 Last Admin: 05/10/25 21:04 Dose: 650 mg Documented By: MELITON Ketorolac Tromethamine (Ketorolac Inj 30 Mg/Ml Vial) 15 mg IM X1 ONE Stop: 05/10/25 20:42 Last Admin: 05/10/25 21:05 Dose: 15 mg Documented By: MELITON Lidocaine (Lidocaine 5% 1 Patch) 1 patch TOP X1 ONE Stop: 05/10/25 21:10 As noted Consultations Consultation(s) initiated? (list below): No Diagnosis Neck Differential Diagnosis: disc disorder of cervical region, cervical radiculopathy and strain of neck muscle Most likely diagnosis given after review of the tests above:: As noted Admission Indicated Admission indicated?: not indicated Admission Request Was there a request for admission?: No Disposition Plan Disposition Plan: Discharge Discharge Attestation Discharge Attestation: The patient and all family members were given an opportunity to ask questions and understood the discharge instructions. Discharge instructions specifically effects, indications for sooner follow up or return to the emergency department, and the expected course of current diagnosis. Patient condition: Stable Discharge Plan Plan Patient Disposition: HOME (Self Care) Patient condition on transfer: Stable Prescriptions/Referrals Prescriptions/Med Rec: No Action levalbuterol tartrate 45 mcg/actuation HFA aerosol inhaler 2 inh inhalation Q6H PRN (Reason: shortness of breath or wheezing) Qty: 15 0RF quetiapine 300 mg tablet 300 mg PO 1XD escitalopram oxalate 10 mg tablet 10 mg PO 1XD Xarelto 15 mg tablet 15 mg PO Q24H lisinopril 20 mg tablet 20 mg PO QDAY Qty: 30 0RF nicotine 14 mg/24 hr patch 24 hour 14 mg topical DAILY Qty: 14 0RF Trelegy Ellipta 100-62.5-25 mcg blister with device 1 inh inhalation QDAY Qty: 28 0RF levothyroxine 100 mcg capsule 100 mcg PO QDAY Qty: 30 0RF oxycodone-acetaminophen [Percocet] 5-325 mg tablet 1 tab PO TID MDD 3 tab PRN (Reason: pain) Qty: 24 0RF Referrals: Mansi Newton, [employer] IN[employer]ER [Primary Care Provider] - In 1 week Problem List Clinical Impression: Cervical disc disorder with radiculopathy, Thyromegaly Patient/Caregiver Discharge Instructions Education Materials: ED Neck Pain Additional Instructions: Follow up with your primary medical doctor within 24 hours. Return to the Emergency Room immediately for any new, worsening, continuing symptoms or any concerns at all. Return to the Emergency Room within 24 hours if you are unable to follow up with your primary medical doctor within 24 hours. Follow-up with your braille teacher within 1 week. Print Language: Lithuanian Stand Alone Forms: Sabrina Award Info., Patient Portal Info Letter PA/ART GILDER Supervising Physician PA/ART GILDER Supervising Physician: Dr. Ricketts
== END 2025-05-10 21:44 | disposition home or self-care (01) ==
PROVIDERS: Physician Assistant; Emergency Provider Emergency Medicine; PCP Nurse Practitioner Family
DX: S19.9XXA Unspecified injury of neck, initial encounter (principal); X50.0XXA Overexertion from strenuous movement or load, initial encounter; E01.0 Iodine-deficiency related diffuse (endemic) goiter; G89.29 Other chronic pain; M50.10 Cervical disc disorder with radiculopathy, unspecified cervical region
CPT/HCPCS: 36415; 70490; 72125; 80053; 85025; 96372; 99283; J1885; A9270

== ENCOUNTER 2025-05-12 10:31 | Emergency (ER) | payer MEDICARE, MEDICAID, SELFPAY ==
[2025-05-12 10:32] VITALS: BP 135/86; RESP 16; TEMP 36.8; O2SAT 96
[2025-05-12 10:48] VITALS: PULSE 110; O2SAT 98
[2025-05-12 11:12] VITALS: PULSE 85
--- NOTE | 2025-05-12 11:31 | PD.EDNECK ---
ED Neck Injury Pain RME/HPI General Chief Complaint: Extremity Injury, Upper Stated Complaint: RIGHT ARM PAIN Time Seen by Provider: 05/12/25 11:04 Arrival date/time: 05/12/25 10:31 65-year-old female presents to the emergency department today for complaints of neck pain patient reports neck pain is acute on chronic patient reports no fever nausea vomiting no numbness or tingling no swelling of extremities Limitations: no limitations Related Data Home Medications ?Medication ?Instructions ?Recorded ?Confirmed escitalopram oxalate 10 mg tablet 10 mg PO 1XD 12/05/24 12/07/24 quetiapine 300 mg tablet 300 mg PO 1XD 12/05/24 12/07/24 rivaroxaban 15 mg tablet (Xarelto) 15 mg PO Q24H 12/05/24 12/07/24 Previous Rx's ?Medication ?Instructions ?Recorded fluticasone fur. 100 mcg-umeclid 1 inh inhalation QDAY #28 ea 12/05/24 62.5 mcg-vilant 25 mcg inhalat.powder (Trelegy Ellipta) lisinopril 20 mg tablet 20 mg PO QDAY #30 tabs 12/05/24 nicotine 14 mg/24 hr daily 14 mg topical DAILY #14 ea 12/05/24 transdermal patch levalbuterol tartrate 45 2 inh inhalation Q6H PRN shortness 12/09/24 mcg/actuation aerosol inhaler of breath or wheezing #15 grams levothyroxine 100 mcg capsule 100 mcg PO QDAY #30 caps 03/23/25 oxycodone-acetaminophen 5 mg-325 1 tab PO TID PRN pain #24 tabs 03/23/25 mg tablet (Percocet) cyclobenzaprine 10 mg tablet 10 mg PO TID PRN muscle spasm 10 05/12/25 days #30 tab-caps hydrocodone 5 mg-acetaminophen 325 1 tab PO BID PRN pain #20 tabs 05/12/25 mg tablet ibuprofen 800 mg tablet 800 mg PO TID PRN pain #30 tabs 05/12/25 Allergies Allergy/AdvReac Type Severity Reaction Status Date / Time albuterol Allergy Severe Swelling Verified 05/12/25 10:47 of Lip/Tongue/Throat metronidazole Allergy Severe RASH Verified 05/12/25 10:47 povidone-iodine Allergy Severe RASH, Verified 11/19/25 10:47 SWELLING Review of Systems Review of Systems Systems Reviewed: All systems reviewed, normal except as documented Constitutional Constitutional: Reports system reviewed and no additional complaints, except as documented, Denies fever(s) and Denies headache(s) Eyes Eyes: Reports system reviewed and no additional complaints, except as documented and Denies blurry vision ENT Ears, Nose, Mouth, and Throat: Reports system reviewed and no additional complaints, except as documented, Denies headache(s), Denies nasal congestion, Denies nasal discharge and Reports neck pain Cardiovascular Cardiovascular: Reports system reviewed and no additional complaints, except as documented, Denies chest pain and Denies dyspnea Respiratory Respiratory: Reports system reviewed and no additional complaints, except as documented, Denies chest congestion, Denies cough and Denies dyspnea Gastrointestinal Gastrointestinal: Reports system reviewed and no additional complaints, except as documented and Denies abdominal pain Musculoskeletal Musculoskeletal: Reports system reviewed and no additional complaints, except as documented, Denies deformity, Reports neck pain, Denies numbness, Reports stiffness and Denies tingling Integumentary/Breasts Skin/Breast: Reports system reviewed and no additional complaints, except as documented and Denies rash Neurologic Neurologic: Reports system reviewed and no additional complaints, except as documented, Reports as per HPI, Denies headache(s), Denies numbness and Denies tingling Past Medical History Past Medical History NEUROLOGIC: Negative Neurological Disorders CARDIAC: Positive Edema, Deep Vein Thrombosis and Hypertension; Negative Cardiac Disorders or Congestive Heart Failure RESPIRATORY: Positive Chronic Obstructive Pulmonary Disease (COPD) and Asthma GASTROINTESTINAL: Positive Gastrointestinal Disorders and Gall Bladder Disease GENITOURINARY: Negative Genitourinary Disorders or Renal Disease REPRODUCTIVE: Negative Pelvic Inflammatory Disease MUSCULOSKELETAL: Positive Musculoskeletal Disorders and Arthritis ENDOCRINE: Negative Endocrine Disorders, Diabetes Mellitus Type 1 or Diabetes Mellitus Type 2 HEMATOLOGIC: Negative Blood Disorders or Sickle Cell Disease OTHER HISTORY: Negative Autoimmune Disease, Organ Transplant or Cancer Family History FAMILY HISTORY: Positive Family Respiratory Disorders and Family Cardiac Disorders; Negative Family Psychiatric Problems, Family Gastrointestinal Problems, Family Cancer, Family Surgery or Family Anesthesia Reaction Surgical History SURGICAL: Positive Abdominal Surgery; Negative Cardiac Surgery, Endocrine Surgery, Ear Surgery, Nephrectomy or Organ Transplant Social History SMOKING STATUS: Current every day smoker 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) ED Exam General Limitations: Present no limitations General appearance: Present alert and in no apparent distress Head Head exam: Present atraumatic, normocephalic and normal inspection Eye Eye exam: Present normal appearance, PERRL and EOMI; Absent conjunctival injection ENT ENT exam: Present normal exam, normal oropharynx and mucous membranes moist Neck Neck exam: Present full ROM, trachea midline and tenderness (neck pain ); Absent meningismus, lymphadenopathy or thyromegaly Chest Chest inspection: Present normal inspection and symmetric chest wall rise; Absent tenderness Respiratory Respiratory exam: Present normal lung sounds bilaterally; Absent respiratory distress Cardiovascular Cardiovascular exam: Present regular rate, normal rhythm and normal heart sounds Abdominal Exam Abdominal exam: Present soft and normal bowel sounds Extremities Exam Extremities exam: Present normal inspection and full ROM Back Exam Back exam: Present normal inspection and full ROM Neurological Exam Neurological exam: Present alert, oriented X3 and CN II-XII intact Psychiatric Psychiatric exam: Present normal affect and normal mood Skin Skin exam: Present warm, dry, intact and normal color Course Quality Measures none Orders Category Date Time Status Ketorolac Inj [Toradol Inj] Med 05/12/25 11:15 Discontinued 30 mg IM X1 ONE oxyCODONE/APAP 5/325 [Percocet 5/325] Med 05/12/25 11:15 Discontinued 1 tab PO X1 ONE Vital Signs Vital signs: Vital Signs Temperature 98.2 F 05/12/25 10:32 Respiratory Rate 16 05/12/25 10:32 Blood Pressure 135/86 H 05/12/25 10:32 Pulse Oximetry (%) 96 05/12/25 10:32 Oxygen Delivery Method Room Air 05/12/25 10:32 O2 saturation 96% room air within normal limits Neck Pain MDM Narrative MDM Narrative:: 65-year-old female presents to the emergency department today for complaints of neck pain patient reports neck pain is acute on chronic patient reports no fever nausea vomiting no numbness or tingling no swelling of extremities On exam patient well-appearing does not appear ill or toxic no acute stress I reviewed patient's lab work and imaging from 2 days ago Patient was given a copy of her CT report instructed to follow-up with primary care doctor Explained to the patient she should see her PCP as well as endocrinology patient may need outpatient biopsy of thyroid If symptoms persist or worsen I would like her to return for evaluation Patient given pain medication here discharge home with pain medications Patient data External records reviewed:: [facility] previous records Clinical information provided by:: patient Social determinants that could affect healthcare access:: none Patient has the following chronic illnesses:: See history How is presenting disease/condition affected by chronic disease/condition?: caused by Evaluation data The following diagnostics were reviewed and interpreted by me:: lab results and radiology exam(s) Lab and/or radiology exams considered but not ordered:: Labs and radiology reviewed from last visit Interpretation Summary: Reviewed Medications / Prescriptions Medications or Prescriptions considered but not ordered:: Given Medication administrations:: Medication Administration History Discontinued Medications Ketorolac Tromethamine (Ketorolac Inj 30 Mg/Ml Vial) 30 mg IM X1 ONE Stop: 05/12/25 11:16 Oxycodone/Acetaminophen (Oxycodone/Apap 5/325 Tablet) 1 tab PO X1 ONE Stop: 05/12/25 11:16 Given Consultations Consultation(s) initiated? (list below): No Diagnosis Neck Differential Diagnosis: disc disorder of cervical region, whiplash injury to neck and other (Neck pain) Most likely diagnosis given after review of the tests above:: Neck pain Admission Indicated Admission indicated?: not indicated Admission Request Was there a request for admission?: No Disposition Plan Disposition Plan: Discharge Discharge Attestation Discharge Attestation: The patient and all family members were given an opportunity to ask questions and understood the discharge instructions. Discharge instructions specifically effects, indications for sooner follow up or return to the emergency department, and the expected course of current diagnosis. Patient condition: Stable Discharge Plan Plan Patient Disposition: HOME (Self Care) Discharge Disposition comment: Stable Prescriptions/Referrals Prescriptions/Med Rec: New cyclobenzaprine 10 mg tablet 10 mg PO TID PRN (Reason: muscle spasm) 10 Days Qty: 30 0RF ibuprofen 800 mg tablet 800 mg PO TID PRN (Reason: pain) Qty: 30 0RF hydrocodone-acetaminophen 5-325 mg tablet 1 tab PO BID MDD 10 PRN (Reason: pain) Qty: 20 0RF No Action levalbuterol tartrate 45 mcg/actuation HFA aerosol inhaler 2 inh inhalation Q6H PRN (Reason: shortness of breath or wheezing) Qty: 15 0RF quetiapine 300 mg tablet 300 mg PO 1XD escitalopram oxalate 10 mg tablet 10 mg PO 1XD Xarelto 15 mg tablet 15 mg PO Q24H lisinopril 20 mg tablet 20 mg PO QDAY Qty: 30 0RF nicotine 14 mg/24 hr patch 24 hour 14 mg topical DAILY Qty: 14 0RF Trelegy Ellipta 100-62.5-25 mcg blister with device 1 inh inhalation QDAY Qty: 28 0RF levothyroxine 100 mcg capsule 100 mcg PO QDAY Qty: 30 0RF oxycodone-acetaminophen [Percocet] 5-325 mg tablet 1 tab PO TID MDD 3 tab PRN (Reason: pain) Qty: 24 0RF Problem List Clinical Impression: Cervical radiculopathy, Thyromegaly, Neck pain Patient/Caregiver Discharge Instructions Education Materials: ED Back Care Tips Additional Instructions: Please follow-up with the specialist as well as primary care doctor as discussed for worsening symptoms return immediately Print Language: Malian Stand Alone Forms: Sabrina Award Info., Patient Portal Info Letter PA/PAYROLL SPECIALIST Supervising Physician PA/PAYROLL SPECIALIST Supervising Physician: Dr. nobles
[2025-05-12] MEDS: KETOROLAC INJ 30 MG/ML VIAL IM (11:35)
== END 2025-05-12 11:52 | disposition home or self-care (01) ==
LOC: SERX 11:46
PROVIDERS: Emergency Provider Family Medicine; PCP Family Medicine
DX: M54.12 Radiculopathy, cervical region (principal); E01.0 Iodine-deficiency related diffuse (endemic) goiter
CPT/HCPCS: 96372; 99282; J1885; A9270